=== PATIENT | female | born 1950 | race Caucasian/White ===

== ENCOUNTER 2023-08-02 11:02 | Outpatient (RCR) | payer MEDICARE, OTHER, SELFPAY | END 2023-08-02 23:59 | disposition home or self-care (01) | LOC: RPT 11:02 | PROVIDERS: ATTENDING PHYSICIAN Orthopaedic Surgery Adult Reconstructive Orthopaedic Surgery; FAMILY PHYSICIAN Family Medicine | DX: Z47.1 Aftercare following joint replacement surgery (principal); Z96.652 Presence of left artificial knee joint | CPT/HCPCS: 97010; 97016; 97110 ==

== ENCOUNTER 2023-08-23 10:08 | Outpatient (RCR) | payer MEDICARE, OTHER, SELFPAY | END 2023-08-23 23:59 | disposition home or self-care (01) | LOC: RPT 10:08 | PROVIDERS: ATTENDING PHYSICIAN Orthopaedic Surgery Adult Reconstructive Orthopaedic Surgery; FAMILY PHYSICIAN Family Medicine | DX: Z47.1 Aftercare following joint replacement surgery (principal); Z73.6 Limitation of activities due to disability; R26.2 Difficulty in walking, not elsewhere classified; M62.81 Muscle weakness (generalized); Z96.653 Presence of artificial knee joint, bilateral | CPT/HCPCS: 97016; 97110; 97140; 97530 ==

== ENCOUNTER 2023-10-11 10:13 | Outpatient (RCR) | payer MEDICARE, OTHER, SELFPAY | END 2023-10-11 23:59 | disposition home or self-care (01) | LOC: RPT 10:13 | PROVIDERS: ATTENDING PHYSICIAN Orthopaedic Surgery Adult Reconstructive Orthopaedic Surgery; FAMILY PHYSICIAN Family Medicine | DX: Z47.89 Encounter for other orthopedic aftercare (principal); R26.89 Other abnormalities of gait and mobility; M25.562 Pain in left knee; Z73.6 Limitation of activities due to disability; Z96.652 Presence of left artificial knee joint | CPT/HCPCS: 97010; 97110; 97112; 97116; 97163; 97530 ==

== ENCOUNTER 2023-10-17 13:48 | Outpatient (RCR) | payer MEDICARE, OTHER, SELFPAY | END 2023-10-29 15:23 | disposition home or self-care (01) | LOC: RPT 13:48 | PROVIDERS: ATTENDING PHYSICIAN Orthopaedic Surgery Adult Reconstructive Orthopaedic Surgery; FAMILY PHYSICIAN Family Medicine | DX: Z47.1 Aftercare following joint replacement surgery (principal); R26.89 Other abnormalities of gait and mobility; M25.561 Pain in right knee; Z73.6 Limitation of activities due to disability; Z96.653 Presence of artificial knee joint, bilateral | CPT/HCPCS: 97010; 97110; 97112; 97140; 97530 ==

== ENCOUNTER 2023-10-23 03:06 | Inpatient (IN) | payer MEDICARE, OTHER, SELFPAY ==
[2023-10-22 20:59] VITALS: BMI 47.1
[2023-10-22 21:05] VITALS: BP 131/87
[2023-10-22 21:27] LABS: % Basophils 0.3 % (0-2); % Eosinophils 3.1 % (0-6); % Immature Granulocytes 0.6 % (0-0.5); % Lymphocytes 27.4 % (20.5-51.1); % Monocytes 6.4 % (1.7-9.3); % Neutrophils 62.2 % (42.2-75.2); Absolute Eosinophils 0.3 10^3/uL (0-0.7); Absolute Immature Granulocytes 0.1 10^3/uL (0-0.05); Absolute Lymphocytes 2.4 10^3/uL (1.2-3.4); Absolute Monocytes 0.6 10^3/uL (0.1-0.6); Absolute Neutrophils 5.5 10^3/uL (1.4-6.5); Hematocrit 29.3 % (37.0-47.0); Hemoglobin 9.6 g/dL (12.0-16.0); Mean Corp Hgb Conc. 32.8 g/dL (33.0-37.0); Mean Corpuscular Hgb 23.8 pg (27.0-31.0); Mean Corpuscular Volume 72.7 fL (81.0-99.0); Mean Platelet Volume 9.1 fL (7.4-10.4); Nucleated Red Blood Cells % 0 %; Platelet Count 338 10^3/uL (130-400); Red Blood Cell Count 4.03 10^6/uL (4.20-5.40); Red Cell Dist. Width 17.6 % (11.5-14.5); White Blood Cell Count 8.8 10^3/uL (4.8-10.8)
[2023-10-22 21:47] LABS: Lactic Acid 1.2 mmol/L (0.7-2.0)
[2023-10-22 21:53] LABS: ALT (SGPT) 15 U/L (0-35); AST (SGOT) 25 U/L (14-36); Albumin 3.6 g/dl (3.5-5.0); Alkaline Phosphatase 115 U/L (38-126); Blood Urea Nitrogen 22 mg/dl (7-17); Calcium 8.6 mg/dl (8.4-10.2); Carbon Dioxide 23 mmol/L (22-30); Chloride 104 mmol/L (98-107); Glucose 105 mg/dl (70-99); Potassium 4.7 mmol/L (3.5-5.1); Sodium 133 mmol/L (135-145); Total Bilirubin 0.4 mg/dl (0.2-1.3); Total Protein 7.3 g/dl (6.3-8.2); eGFR > 60.00
[2023-10-23 01:08] VITALS: BP 100/54
--- NOTE | 2023-10-23 01:37 | ED.GENMED ---
History of Present Illness
General
Chief Complaint: Skin Problem
Source: patient
Exam Limitations: none
Time Seen by Provider: 10/23/23 00:49
Travel History
Have you had any contact with someone who has COVID-19?: No
Do you have any symptoms of coronavirus? Fever > 100 degrees, chills, cough, shortness of breath, sore throat, loss of taste or smell, muscle aches, or headache?: No
History of Present Illness
History of Present Illness:
This is a 73 year old female that comes in with c/o redness and swelling of the left lower leg. States that she has had cellulitis of the left leg as she has had two surgeries. States that she went to the [employer] [facility] and she culture the leg and
she was told that she has MRSA. State that she started on Doxycycline but this is not helping. States that her leg is more swollen and increased redness. State that she is also having difficulty walking on the leg. States that on Sunday she had a
fever of 103 with chills. States that she also has a headache with some dizziness. Denies any chest pain, SOB, abd pain, nausea, vomiting, diarrhea, urinary burning.
Past History
Past History
ED Past Medical History: Cancer (breast ca - tx'd with radiation & lumpectomy, disease free since last year, Skin CA), HTN, Psychiatric (Depression), Other (Restless leg syndrome,PNA, Sleep apnea, Anemia, ) and Other (Acute Renal Failure)
ED Past Surgical History: Bowel resection (Gastric bypass), Gynecological (Hysterectomy), Orthopedic (Bilateral carpal tunnel , Left and right knee replacement, Repair fracture Left femur, ) and Other (Gastric bypass, Prolapsed rectum repair, )
Social History
Tobacco: Non-smoker
Alcohol: None
Personal:
Living: with family
Family History
Family History: Negative Diabetes, Hypertension or CAD
Review of Systems
Review of Systems
All Other Systems: ROS reviewed and negative except as documented in HPI and ROS
Constitutional: Reports fever (Last Sunday) and chills
EENT: Reports no symptoms
Respiratory: Reports no symptoms; Denies cough or trouble breathing
Cardiac: Reports no symptoms; Denies chest pain
ABD/GI: Reports no symptoms; Denies abdominal pain, nausea, vomiting or diarrhea
: Reports no symptoms; Denies dysuria, frequency or urgency
Musculoskeletal: Reports edema (Bilateral leg edema)
Skin: Reports other (Increased redness left leg with weeping)
Neurological: Reports dizzy and headache
Psychiatric: Reports no symptoms
Phy Exam
General Physical Exam
General Presentation: no apparent distress
General age: appears stated age
General Skin: warm and dry
General Habitus: elderly
General Mental: alert
General Hydration: appears well hydrated
ENT Exam
ENT Exam: pharynx normal and neck supple
Eye Exam
Eye Exam: EOMI
Cardiovascular Exam
Cardiovascular Exam: regular rate/rhythm and normal peripheral pulses
Pulmonary Exam
Pulmonary Exam: lungs clear, no respiratory distress, no rales, chest non tender, no crackles, no rhonchi, no wheezing and no cough
Gastrointestinal Exam
Gastrointestinal Exam: normal bowel sounds, non tender, soft, no organomegaly, no pulsatile mass, non distended and other (Obese)
Musculoskeletal Exam
Musculoskeletal Exam: edema (Bilateral Lower leg +2pitting edema. )
Skin Exam
Skin Exam: normal color, warm/dry, no petechia and redness (Left lower leg with increased warmth. small open area with oozing. )
Psychiatric Exam
Psychiatric Exam: normal mood/affect
Course
Orders/Labs/Results
Orders:
Orders
10/22/23 21:18
Complete Blood Count/With Diff Urgent
Comprehensive Metabolic Panel Urgent
Lactic Acid Urgent
Blood Culture Urgent
MARLEEN Source: Blood/Venous
Specimen Description:
Date Specimen was Collected: 10/22/23
Time Specimen was Collected: 21:10
Wound Culture [Wound/Abscess/Other Culture] Urgent
MARLEEN Source: Leg
Specimen Description: Left
Date Specimen was Collected: 10/22/23
Time Specimen was Collected: 21:10
10/23/23 01:05
Blood Culture Urgent
MARLEEN Source: Blood/Venous
Specimen Description:
10/23/23 01:17
US Legs, Left [US Periph Venous LOWER Ext LT] Urgent
Comment:
Reason For Exam: Swelling, and redness
10/23/23 01:36
Leg Tibia/Fibula, Left 2 View [CR Leg Tibia/fibula Left 2 Vw] Urgent
Comment:
Reason For Exam: Pain
10/23/23 01:37
Vancomycin 1 Gram/200 ml [Vancocin] 1 gram in 200 ml IV NOW
Abnormal Lab Results
10/22/23
21:18
RBC 4.03 L 10^6/uL
(4.20-5.40)
Hgb 9.6 L g/dL
(12.0-16.0)
Hct 29.3 L %
(37.0-47.0)
MCV 72.7 L fL
(81.0-99.0)
MCH 23.8 L pg
(27.0-31.0)
MCHC 32.8 L g/dL
(33.0-37.0)
RDW 17.6 H %
(11.5-14.5)
Abs Immat Gran (auto) 0.1 H 10^3/uL
(0-0.05)
Immature Gran % 0.6 H %
(0-0.5)
Sodium 133 L mmol/L
(135-145)
BUN 22 H mg/dl
(7-17)
Creatinine 0.5 L mg/dL
(0.6-1.0)
Glucose 105 H mg/dl
(70-99)
10/22/23 21:18
10/22/23 21:18
H/H low. Sodium slighlty low. Dehydration. Glucose nonfasting. Lactic acid normal at 1.2
Vital Signs
Initial and Last Documented VS:
Initial Vital Signs
Temp Pulse Resp BP Pulse Ox
98.0 F 99 18 131/87 98
10/22/23 21:05 10/22/23 21:05 10/22/23 21:05 10/22/23 21:05 10/22/23 21:05
Last Documented Vital Signs
Temp Pulse Resp BP Pulse Ox
98.0 F 96 18 100/54 93
10/23/23 01:33 10/23/23 01:33 10/22/23 21:05 10/23/23 01:08 10/23/23 01:15
MDM/Problems Addressed
Differential Diagnosis Includes:
Cellulitis, DVT,
MDM/Problems Addressed:
This is a 73 year old female that comes in with c/o redness and swelling of the left leg. State that she has had 2 surgeries on the left leg and since that time she has had a cellulitis. States that the [employer] [facility] did a culture as she has some
open weeping wounds. States that this came back as MRSA and that she was place on Doxycycline. States that her leg is more swollen and has increased redness. States that she is having difficulty walking on the leg.
Will get labs, US and X-ray as patient states that she had a fracture before and did not know this until they did an X-ray.
Explained to patient that she will be admitted and started on IV antibiotics. Hospitalist notified.
Chronic conditions affecting care: Other (Left knee replacement. )
Acute Exacerbation and/or Progression of Chronic Illness:
Cellulitis
*Radiology
Radiology exam reviewed: preliminary read by ED provider (Tibia/ Fibula- negative for fractures. ) and other (US left leg- Negative for DVT)
*Pulse Oximetry
Patient hypoxic: no
*EKG
Interpreted by ED Provider?: NA
Rate: EKG- N/A
*[employer] Investigator Interpretation
Rate: Wage [employer] Investigator- N/A
*Critical Care Note
Total Time (30-74mins, 75-104mins- exclusive of procedures): Not Applicable
ED Attending Note
-
Portions of this chart may have been created with voice recognition software.� Occasional wrong word or��sound alike� substitutions may have occurred due to the inherent limitations of voice recognition software.
Discharge Plan
Departure
Prescriptions:
No Action
venlafaxine [Effexor XR] 75 MG capsule,extended release 24hr
1 tab PO DAILY
acetaminophen [Tylenol Arthritis Pain] 650 MG tablet extended release
650 mg PO PRN PRN (Reason: arthritis)
lisinopril 20 mg Tablet
20 mg PO HS
venlafaxine [Effexor XR] 150 mg Capsule,Extended Release 24hr
150 mg PO DAILY
pramipexole [Mirapex] 0.5 mg Tablet
1.5 mg PO TID
gabapentin 300 mg Capsule
300 mg PO HS
Eliquis 2.5 mg Tablet
2.5 mg PO BID
Referrals:
Lopez Carrera MD [Family Provider] -
Interventions
Interventions:
*Risk Screen - Suicide Last Done: 10/22/23 21:05
*General Assessment Last Done: 10/22/23 21:05
[2023-10-23] MEDS: VANCOCIN 200 IV ×3 (02:26→17:20)
--- NOTE | 2023-10-23 03:00 | HPS.HSE ---
Family Physician
-
Family Physician: Lopez Carrera
Chief Complaint
-
LLE pain, swelling, redness
History of Present Illness
Patient is a 73y F with PMH significant for chronic anemia, obesity and now-chronic issues with LLE who presents to ED complaining of LLE pain, swelling, redness and 'oozing'. Patient initially underwent L TKA 05/2023. She had a periprosthetic
fracture identified in August and required revision arthroplasty in 08/2023. Both surgeries were done by Dr. Sahu () at [facility]. In addition, patient underwent melanoma excision from the anterior L calderon about one year ago or so (Dr. Wynn).
Patient states that she has had swelling and intermittent redness in the lower leg since her initial TKA in May.
She had the revision in August s noted; however, she has continued to have swelling, induratio and varying degrees of erythema.
Patient states that these symptoms have been much worse recently with oozing from the lower leg near the ankle and development of 'pustules' at the inferior aspect of the TKA incision scar.
She was seen by her Football Pad Repairer on Sunday of this past week. A culture was done of the discharge.
On Sunday, she developed a fever of 103 degrees at home. She had some mild cough. A COVID test was negative and patient was prescribed Tamiflu for presumptive influenza. She did feel better in terms of cough / fever.
A few days later, she called her PCP regarding the persistent / worsening redness and swelling in the lower leg. She was prescribed an antibiotic - though she cannot recall which one.
Sunday, her Football Pad Repairer called her with results of her culture. This was reportedly positive for MRSA. Abx were changed to doxycycline and patient has now taken 3 total doses of this.
She presented to the ED this evening as she did not feel her symptoms were improving.
She has had no further systemic fevers, chills, N/V/D, etc.
She has noted increased redness to the knee anteriorly and extending into the thigh posteriorly. She has noted new areas of pustules as noted above at the inferior aspect of thhe TKA incision scar.
Medical History
Past Medical History
Past Medical History: Reports Other
Additional Past Medical History:
Breast Cancer s/p Lumpectomy and XRT
Melanoma s/p Excision
Anxiety / Depression
Restless Leg Syndrome
Hypertension
Obesity
Past Surgical History: Reports Other
Additional Past Surgical History:
Left TKA (05/2023)
Revision L TKA (08/2023)
Right TKA
Melanoma Excision
NAN
Justin-en-Y Bypass
Right Lumpectomy
Carpal Tunnel Surgery
Social History
Tobacco: Non-smoker
Alcohol: None
Drug: None
Family History
Family History: Not pertinent
Allergies / Home Medications
Allergies reflects when Allergies were last updated in [employer].
Home Medications with original date entered in [employer]
Allergy/Medication List:
Patient cannot recall specific meds / doses at this time.
If medication reconciliation has not been performed, why?: Medication List N/A (Patient cannot recall specific meds / doses at this time.)
Review of Systems
-
History Source: Patient
A 12 point ROS was completed and negative except as noted: Yes
Constitutional: Denies Fever or Chills
Respiratory: Denies Cough or Trouble Breathing
Cardiac: Denies Chest Pain or Palpitations
Abdomen/GI: Denies Abdominal Pain, Nausea, Vomiting or Diarrhea
: Denies Dysuria or Frequency
Musculoskeletal: Reports Joint Pain and Edema
Skin: Reports Other (Redness / Weeping)
Neurological: Denies Dizzy or Headache
Psych: Reports Depression; Denies Anxiety
Physical Exam
Vital Signs
Vital Signs
Temp Pulse Resp BP Pulse Ox
98.0 F 96 18 100/54 96
10/23/23 01:33 10/23/23 01:33 10/22/23 21:05 10/23/23 01:08 10/23/23 02:45
Physical Exam
General: Other (73y F in no acute distress.)
HEENT: Moist mucous membranes, PERRLA and Other (Thick neck.)
Respiratory: Clear; No Wheezes, Rales or Rhonchi
Cardiac: S1/S2 and Regular Rhythm; No Murmur
GI: Non Tender, Non Distended, Normal Bowel Sounds and Other (Obese)
Musculoskeletal: Other (L lower leg with induration and edema from the foot to the knee anteriorly and into the mid thigh posteriorly. Erythema and increased warmth, General oozing. 2 areas of skin breakdown / pustule formation at inferior aspect
of the TKA scar.)
Neuro: AO x 3
Laboratory Results
-
10/22/23 21:18
10/22/23 21:18
Laboratory Results
Lactic Acid 1.2 mmol/L (0.7-2.0) 10/22/23 21:18
Total Bilirubin 0.4 mg/dl (0.2-1.3) 10/22/23 21:18
AST 25 U/L (14-36) 10/22/23 21:18
ALT 15 U/L (0-35) 10/22/23 21:18
Alkaline Phosphatase 115 U/L (38-126) 10/22/23 21:18
Impression/Plan
-
A/P: Patient is a 73y F with PMH significant for obesity, HTN and L knee TKA and revision who presents to ED complaining of L lower leg redness, swelling and oozing despite outpatient abx regimen.
LLE Cellulitis
- Admit for further evaluation and treatment.
- There is a degree of chronic edema / venous insufficiency / etc underlying this.
- More acute erythema, warmth and worsening of symptoms.
- Recent OP culture reportedly positive for MRSA (confirm with Dr. Wynn's office in the AM).
- Repeat cultures obtained in the ED.
- IV Vancomycin for now.
- ID evaluation for additional recommendations
- Concern for possible TKA involvement given proximal extension and new pustules at inferior aspect of incision scar.
- Check CT for further evaluation.
- May require IR / aspiration to rule out joint involvement.
- May require Ortho involvement / transfer back to Dr. Sahu at [facility].
Benign Hypertension
- Stable. Continue lisinopril - confirm med / dose in the AM.
Peripheral Neuropathy
- Stable. Continue gabapentin - confirm med / dose in the AM.
Chronic Anemia
- Unclear etiology - seems likely related to prior gastric bypass.
- Check iron studies.
- Follow H&H for any changes.
- Patient denies any gross / evident blood loss.
Depression
- Stable. Continue venlafaxine - verify dose / med in the AM.
Obesity due to excess calories
- Affects all aspects of care, including LE edema and joint pain.
- Encourage healthy diet and increased activity with goal of weight loss.
DVT Prophylaxis: Foot Pumps for now.
Code Status: Full
[2023-10-23 03:06] VITALS: BMI 47.1
[2023-10-23 04:10] VITALS: BP 121/65
[2023-10-23 06:14] LABS: Hematocrit 27.8 % (37.0-47.0); Hemoglobin 9.1 g/dL (12.0-16.0); Mean Corp Hgb Conc. 32.7 g/dL (33.0-37.0); Mean Corpuscular Hgb 24.1 pg (27.0-31.0); Mean Corpuscular Volume 73.5 fL (81.0-99.0); Mean Platelet Volume 8.7 fL (7.4-10.4); Platelet Count 336 10^3/uL (130-400); Red Blood Cell Count 3.78 10^6/uL (4.20-5.40); Red Cell Dist. Width 17.6 % (11.5-14.5); White Blood Cell Count 8.4 10^3/uL (4.8-10.8)
[2023-10-23 06:34] LABS: Blood Urea Nitrogen 20 mg/dl (7-17); Calcium 8.6 mg/dl (8.4-10.2); Carbon Dioxide 24 mmol/L (22-30); Chloride 104 mmol/L (98-107); Estimated Creatinine Clearance 85 ml/min; Glucose 102 mg/dl (70-99); Potassium 4.6 mmol/L (3.5-5.1); Sodium 136 mmol/L (135-145); eGFR > 60.00
[2023-10-23 06:35] LABS: Creatine Phosphokinase 47 U/L (30-135); Iron 40 ug/dl (37-170)
[2023-10-23 06:46] LABS: Percent Saturation 14 % (20-50); Total Iron Binding Capacity 273 ug/dl (265-497)
--- NOTE | 2023-10-23 09:48 | PHA.VAN.IN ---
Assessment
- Assessment
Renal Function: Appears similar to baseline
AUC Dosing Plan
- Dosing Variables
Dosing Weight (kg): 102
Dosing CrCl (ml/min): 85
Vd coefficient (L/kg): 0.5
- Empiric Dosing
Initial / Loading Dose: 1000mg - 10/22 02:26
Maintenance Regimen: Vanc 1000mg Q12H - give dose now then at 1800 in lieu of load
Estimated AUC (mcg*h/mL): 543
Estimated Peak (mcg*h/mL): 33.1
Estimated Trough (mcg/ml): 14.5
Estimated Half Life (H): 9.2
- Monitoring
No levels ordered at this time: consider levels in next few days
Pharmacokinetics Vancomycin I
- -
Patient Age: 73
Patient Sex: Female
Vancomycin Day #: 1
Indication: Skin And Soft Tissue
Requesting Provider: Dr. Narvaez
Pertinent Antimicrobial Allergies:
cephalosporins - unknown
penicillins - trouble breathing
sulfonamide antibiotics - rash
Height / Weight:
Height 4 ft 10 in
Actual Weight 102.1 kg
Pertinent Past Medical History: BMI ~47
- Vital Signs / Lab Results
Temp Pulse Resp BP Pulse Ox
98.3 F 97 18 121/65 95
10/23/23 07:36 10/23/23 07:36 10/23/23 07:36 10/23/23 04:10 10/23/23 07:36
Lab Results - Hematology
10/22/23 10/23/23
21:18 06:04
WBC 8.8 8.4
Lab Results - Chemistry
10/22/23 10/23/23
21:18 06:04
BUN 22 H 20 H
Creatinine 0.5 L 0.4 L
Estimated Creat Clear 85
Albumin 3.6
10/22/23
21:18
Lactic Acid 1.2
[2023-10-23] MEDS: EFFEXOR XR 150 MG PO (10:22)
--- NOTE | 2023-10-23 10:25 | CON.ID ---
Consultation
-
Date/Time Consultation Requested: 10/23/2023, 0406
Date/Time Consultation Performed: 10/23/2023, 1030
Requesting Provider: Dr. Francisco Javier Narvaez
Performing Provider: Dr. Sindhu Sandoval
Reason for Consultation: Cellulitis failed oupt abx
Chief Complaint / Past History
Chief Complaint
Draining wounds on LLE
History of Present Illness
73 year old female with OA s/p L TKA at [facility] 05/[address] Sahu. Since then had persistent LLE edema/erythema despite several courses of antibiotics. August 2023, PCP ordered CT LLE which showed periprosthetic fracture, large
suprapatellar joint effusion. Pt denies hx falls/trauma to knee. On 09/03/23, she underwent Left TKA partial revision. Post-op LLE continued with edema despite PT. LLE also with worsening erythema. Approximately 2 weeks ago, she developed
drainage from left leg distal wound. She saw her textile pin worker on 10/15/23 who cultured the wound. On 10/16 she had fever up to 105. COVID neg. PCP treated her empirically with Tamiflu. On Sunday, 10/19 she noted wounds over distal knee incision with
drainage. His PCP prescribed Levofloxacin. On Friday 10/20, she received a call from her Compound Filler regarding wound cx +MRSA, Levofloxacin replaced with doxycycline. Her left continued to have worsening erythema, edema, and drainage. She came to
ED last night. Currently she is on IV Vancomycin.
Past History
Additional Past Medical History:
HTN
Restless leg syndrome
hx breast CA s/p lumpectomy and XRT
Anxiety/depression
L TKR at [facility] (05/2023) with periprosthetic fracture s/p revision 08/2023
R TKR (2012)
Gastric bypass
Melanoma excision left calderon
NAN
Allergy History:
adhesive tape [Adhesive Tape] Allergy (Verified 10/22/23 21:05)
Rash
Cephalosporins Allergy (Verified 10/22/23 21:05)
Unknown
latex [Latex] Allergy (Verified 10/22/23 21:05)
Unknown
Penicillins Allergy (Verified 10/22/23 21:05)
trouble breathing
Sulfa (Sulfonamide Antibiotics) Allergy (Verified 10/22/23 21:05)
Rash
sulfamethoxazole Allergy (Verified 10/22/23 21:05)
Rash
trimethoprim Allergy (Verified 10/22/23 21:05)
Rash
Medications Reviewed: Yes
Current Antibiotics:
Vancomycin
Social History
Tobacco: Non-Smoker
Alcohol: None
Drug: None
Personal: Single
Living: With Family
Family History
Family History: Not Pertinent
Review of Systems
Review of Systems
General: Fever and Chills
HEENT: Negative Sinus Problems or Headache
Respiratory: Negative Dyspnea or Cough
Gasteroenterology: Other (no diarrhea); Negative Nausea or Vomiting
Genital / Urological: Negative Dysuria
Musculoskeletal: Joint Swelling and Arthralgias
Neurological: Negative Headache or Dizziness
All systems: All other systems were reviewed and were negative
Vital Signs
Temp Pulse Resp BP Pulse Ox
98.3 F 97 18 121/65 95
10/23/23 07:36 10/23/23 07:36 10/23/23 07:36 10/23/23 04:10 10/23/23 07:36
Physical Exam
Physical Exam
Constitutional: No Acute Distress and Obese
Eyes: Sclera Anicteric
Cardiovascular: Regular Rate and S1/S2
Pulmonary: Clear
Gastrointestinal: Soft, Non Tender, Non Distended and Normal Bowel Sounds
Genito-Urinary: CVA Tenderness
Extremities: Edema (LLE: 2-3+ edema) and Erythema (LLE bright erythema from ankle to below knee to calf, back of thigh, + warmth. )
Musculoskeletal: Other (Left knee ROM limited)
Wound: Other (Left knee distal 1/3 of incision with 2 areas of dehiscence, wound, + significant induration over distal incision)
Lab / Diagnostic Study Results
10/23/23 06:04
10/23/23 06:04
Abs Immat Gran (auto) 0.1 10^3/uL (0-0.05) H 10/22/23 21:18
Absolute Neuts (auto) 5.5 10^3/uL (1.4-6.5) 10/22/23 21:18
Absolute Lymphs (auto) 2.4 10^3/uL (1.2-3.4) 10/22/23 21:18
Absolute Monos (auto) 0.6 10^3/uL (0.1-0.6) 10/22/23 21:18
Absolute Basos (auto) 0.0 10^3/uL (0-0.2) 10/22/23 21:18
Immature Gran % 0.6 % (0-0.5) H 10/22/23 21:18
Neutrophils % 62.2 % (42.2-75.2) 10/22/23 21:18
Lymphocytes % 27.4 % (20.5-51.1) 10/22/23 21:18
Monocytes % 6.4 % (1.7-9.3) 10/22/23 21:18
Eosinophils % 3.1 % (0-6) 10/22/23 21:18
Basophils % 0.3 % (0-2) 10/22/23 21:18
Lactic Acid 1.2 mmol/L (0.7-2.0) 10/22/23 21:18
Microbiology Results
Micro:
10/22/23 21:18 Blood Culture - Pending
Blood/Venous
10/23/23 01:05 Blood Culture - Pending
Blood/Venous
10/22/23 21:18 Wound Culture - Pending
Leg - Left Gram Stain - Pending
10/23/23 CT LLE with IV contrast: Partially visualized periprosthetic fracture of the distal femur, better evaluated on recent prior dedicated CT knee exam. Small to moderate suprapatellar joint effusion.
There is moderate diffuse subcutaneous edema and skin thickening throughout the visualized left lower extremity in keeping with cellulitis. There is a partially loculated fluid collection along the anterior margin of the proximal tibia within the
deep soft tissues measuring up to 4.7 x 1.3 x 10.5 cm, new from prior and likely representing a developing abscess. The underlying bone appears grossly intact. No overt CT evidence for osteomyelitis.
10/23/23 Peripheral Vascular US: no DVT
08/29/23 CT LLE wo IV contrast: Total left knee prosthesis hardware noted in place. There is a subacute slightly comminuted periprosthetic fracture along the medial femoral condyle extending from the prosthesis to the medial metadiaphyseal cortex
anteriorly and posteriorly. No evidence for periprosthetic loosening or component migration. Moderate to large suprapatellar joint effusion with hemarthrosis. Moderate diffuse subcutaneous edema about the knee.
Assessment / Plan
# LLE large abscess, presumed PJI left knee
# Outpatient cx MRSA
# hx L TKA (05/2023) followed by partial revision for periprosthetic fracture 09/03/23 at [facility]
- Needs I+D of large abscess.
- Need to explore/ evaluate for left knee prosthetic infection.
- Continue IV Vancomycin for now.
Care Review
Plan reviewed with: Physician (Dr. Blank Harris)
[2023-10-23 10:30] VITALS: BMI 39.2
--- NOTE | 2023-10-23 12:20 | W.PN.UPDATE ---
Update Note
Progress Note Update
Discussed with ID, who recommends transfer to [facility] for drainage of her left leg abscess, and to evaluate if it is involving her left periprosthetic knee revision.
Patient has been accepted for transfer to [facility], accepting physician is Dr. Wilner Sahu.
Transfer to [facility] when bed available. Paperwork completed.
[2023-10-23 12:57] VITALS: BP 128/72; BMI 40.7
--- NOTE | 2023-10-23 13:45 | PTCARENOTE ---
pt admitted from the ED to into 2135 with this nurse at the bedside. pt is aaox3, daily wt with the standing scale and uses a walker for ambulation. pt is cont. of b&b and has unilateral swelling and local erythema to the LLE. this nurse wrapped
the leg with kerlix and dressed the open draining areas with 2 abd pads at this time. wound care is consulted as well as infectious disease. pt takes pills whole with water and is on a regular diet. VSS and pt is a medsu pt at this time on Room
air. pt oriented to the room, call light and telephone. pt and friend are at the bedside at this time.
--- NOTE | 2023-10-23 13:53 | PTCARENOTE ---
this nurse spoke to Shankar Burton and plan is for her to be transferred once there is bed availability. pt is seen by orthopedic surgeon through that location so request was put in for the transfer.
--- NOTE | 2023-10-23 14:16 | W.DCSUMMARY ---
Discharge Summary
Discharge Data
Date of Admission: 10/23/23
Date of Discharge: 10/23/23
-
Pending Results: No
Hospital Course
Discharge diagnosis:
Left lower extremity cellulitis with abscess
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
Chronic anemia
Benign essential hypertension
Peripheral neuropathy
Depression
Obesity due to excess calories
LLE CT:
Partially visualized periprosthetic fracture of the distal femur, better evaluated on recent prior dedicated CT knee exam. Small to moderate suprapatellar joint effusion.
There is moderate diffuse subcutaneous edema and skin thickening throughout the visualized left lower extremity in keeping with cellulitis. There is a partially loculated fluid collection along the anterior margin of the proximal tibia within the
deep soft tissues measuring up to 4.7 x 1.3 x 10.5 cm, new from prior and likely representing a developing abscess. The underlying bone appears grossly intact. No overt CT evidence for osteomyelitis.
Mild degenerative changes of the left ankle and partially visualized joints of the foot.
Hospital course:
73-year-old female with a past medical history of obesity, breast cancer status postlumpectomy and radiation, melanoma status post incision, previous left knee arthroplasty on 05/2023 followed by revision on 08/2023, was admitted with left lower
extremity pain, redness, oozing. She was found to have a large abscess at the anterior margin of the proximal tibia. Previous cultures obtained by her outpatient property maintenance supervisor grew out MRSA. She was treated with IV vancomycin. She was seen by
ID, who recommended incision and drainage, and evaluation of the wound to see if it tracks to the periprostatic knee revision. ID recommends transfer to her original surgeon at [facility]. Patient has been accepted by her original orthopedic
surgeon Dr. Wilner Sahu, and is transferred there in stable condition.
Disposition: Transfer to [facility] in [facility]
Discharge planning: Required 65 minutes
Discharge Plan
-
Patient Disposition: Acute Care Hospital
Discharge Orders:
Discharge Patient (As Directed); Ordered 10/23/23
Ordered By: Bradly Harris
Discharge Date and Time
Discharge Date/Time: 10/23/23 22:00
[2023-10-23 15:55] VITALS: BP 133/70; PULSE 106; O2SAT 96
--- NOTE | 2023-10-23 19:16 | PTCARENOTE ---
Addendum entered by Judith Bills RN 10/23/23 19:18:
this nurse gave report to [facility] this afternoon but due to no call back number no updated report was given
Original Note:
pt to be transferred to [place] this evening via ambulance. pt is aaox3 and received Iv vanco for MRSA in LLE wound at 1800 for this nurse through her R wrist IV site. pt LLe has two open areas with purulent drainage. LLE is red and warm to touch
and has +2 edema.
[2023-10-23] MEDS: NEURONTIN 300 MG PO (20:28)
[2023-10-23] MEDS: ZESTRIL 20 MG PO (20:28)
[2023-10-23 21:58] VITALS: BP 139/79
--- NOTE | 2023-10-23 21:59 | PTCARENOTE ---
Pt picked up by [facility] ambulance transport. Report given by previous shift. Pt AAOx3 and in no distress. Pt ambulated to the stretcher w/ RW. Belongings sent with patient.
== END 2023-10-23 22:00 | disposition short-term general hospital (02) | DRG 560 ==
LOC: 2 NORTH 03:06
PROVIDERS: Emergency Medicine; ADMITTING PHYSICIAN Hospitalist; ATTENDING PHYSICIAN Family Medicine; CONSULT PHYSICIAN Internal Medicine Infectious Disease; EMERGENCY PHYSICIAN Emergency Medicine; FAMILY PHYSICIAN Family Medicine
DX: T84.54XA Infection and inflammatory reaction due to internal left knee prosthesis, initial encounter (principal); L03.116 Cellulitis of left lower limb; Z68.41 Body mass index [BMI] 40.0-44.9, adult; I10 Essential (primary) hypertension; G62.9 Polyneuropathy, unspecified; D64.9 Anemia, unspecified; Z98.84 Bariatric surgery status; F32.A Depression, unspecified; E66.09 Other obesity due to excess calories; Y83.1 Surgical operation with implant of artificial internal device as the cause of abnormal reaction of the patient, or of later complication, without mention of misadventure at the time of the procedure
CPT/HCPCS: 73590; 73701; 80048; 80053; 82550; 83540; 83550; 83605; 85025; 85027; 87040; 87070; 87147; 87186; 87205; 93971; 96365; 96375; 97162; 97166; 99285; Q9967

== ENCOUNTER → 2023-11-26 10:33 | Outpatient (REF) | payer MEDICARE, OTHER, SELFPAY | LOC: WDC 10:33 | PROVIDERS: ATTENDING PHYSICIAN Obstetrics & Gynecology Gynecology; FAMILY PHYSICIAN Family Medicine | DX: N63.10 Unspecified lump in the right breast, unspecified quadrant (principal) | CPT/HCPCS: 76642; 77062; 77066 ==

== ENCOUNTER → 2023-12-26 10:13 | Outpatient (REF) | payer MEDICARE, OTHER, SELFPAY ==
[2023-12-26 11:29] LABS: % Basophils 0.6 % (0-2); % Eosinophils 2.5 % (0-6); % Immature Granulocytes 0.6 % (0-0.5); % Lymphocytes 23.3 % (20.5-51.1); % Monocytes 8.4 % (1.7-9.3); % Neutrophils 64.6 % (42.2-75.2); Absolute Eosinophils 0.2 10^3/uL (0-0.7); Absolute Lymphocytes 1.5 10^3/uL (1.2-3.4); Absolute Monocytes 0.5 10^3/uL (0.1-0.6); Absolute Neutrophils 4.1 10^3/uL (1.4-6.5); Hematocrit 31.4 % (37.0-47.0); Hemoglobin 9.8 g/dL (12.0-16.0); Mean Corp Hgb Conc. 31.2 g/dL (33.0-37.0); Mean Corpuscular Hgb 22.8 pg (27.0-31.0); Nucleated Red Blood Cells % 0 %; Platelet Count 311 10^3/uL (130-400); Red Cell Dist. Width 17.6 % (11.5-14.5); White Blood Cell Count 6.3 10^3/uL (4.8-10.8)
[2023-12-26 11:34] LABS: Erythrocyte Sed Rate 42 mm/hour (0-20)
[2023-12-26 11:47] LABS: ALT (SGPT) 17 U/L (0-35); AST (SGOT) 28 U/L (14-36); Albumin 3.6 g/dl (3.5-5.0); Alkaline Phosphatase 106 U/L (38-126); Blood Urea Nitrogen 22 mg/dl (7-17); Calcium 8.9 mg/dl (8.4-10.2); Carbon Dioxide 27 mmol/L (22-30); Chloride 104 mmol/L (98-107); Glucose 85 mg/dl (70-99); Potassium 4.7 mmol/L (3.5-5.1); Sodium 138 mmol/L (135-145); Total Bilirubin 0.3 mg/dl (0.2-1.3); Total Protein 7.2 g/dl (6.3-8.2); eGFR > 60.00
== END ==
LOC: REG 10:13
PROVIDERS: ATTENDING PHYSICIAN Internal Medicine Infectious Disease; FAMILY PHYSICIAN Family Medicine
DX: S81.002A Unspecified open wound, left knee, initial encounter (principal)
CPT/HCPCS: 36415; 80053; 85025; 85652; 86140

== ENCOUNTER → 2023-12-27 11:39 | Outpatient (REF) | payer MEDICARE, OTHER, SELFPAY | LOC: HWRAD 11:39 | PROVIDERS: ATTENDING PHYSICIAN Internal Medicine Infectious Disease; FAMILY PHYSICIAN Family Medicine | DX: L03.116 Cellulitis of left lower limb (principal) | CPT/HCPCS: 73701; Q9967 ==

== ENCOUNTER 2024-05-17 16:31 | Inpatient (IN) | payer MEDICARE, OTHER, SELFPAY ==
[2024-05-17] VITALS (64 sets, daily range): BP systolic 79–145; BP diastolic 17–82; BMI 41.8
[2024-05-17] MEDS: TYLENOL/FEVERALL 650 MG RECTAL (14:03)
[2024-05-17] MEDS: NSS 1000 IV ×3 (14:04→17:47)
[2024-05-17 14:27] LABS: Urine Albumin Trace (Neg - Trace); Urine Bilirubin Negative (Negative); Urine Character Clear (Clear); Urine Color Yellow; Urine Glucose Negative (Negative); Urine Ketone Negative (Negative); Urine Leukocyte Trace (Negative); Urine Nitrite Negative (Negative); Urine Occult Blood Negative (Negative); Urine Specific Gravity 1.015 (<1.030); Urine Urobilinogen Negative (Neg - 1+)
[2024-05-17 14:34] LABS: COVID-19 Antigen Negative (Negative)
[2024-05-17 14:35] LABS: Urine Bacteria Few (Negative); Urine Hyaline Cast 0-2 /LPF (0-2); Urine Mucus Moderate; Urine Red Blood Cell 0-2 /HPF (0-2); Urine White Cell 0-2 /HPF (0-5)
--- NOTE | 2024-05-17 14:36 | ED.GENMED ---
History of Present Illness
General
Chief Complaint: Change in Mental Status
Source: patient and family
Exam Limitations: clinical condition
Time Seen by Provider: 05/17/24 13:51
History of Present Illness
History of Present Illness:
73-year-old female who presents after sister came to check on her she was semiresponsive. Patient reportedly texted her last night. Febrile on arrival. Patient states she otherwise feels okay. However it is noted that she is somewhat somnolent.
Past History
Past History
ED Past Medical History: Cancer (breast ca - tx'd with radiation & lumpectomy, disease free since last year, Skin CA), HTN, Psychiatric (Depression), Other (Restless leg syndrome,PNA, Sleep apnea, Anemia, ) and Other (Acute Renal Failure)
ED Past Surgical History: Bowel resection (Gastric bypass), Gynecological (Hysterectomy), Orthopedic (Bilateral carpal tunnel , Left and right knee replacement, Repair fracture Left femur, ) and Other (Gastric bypass, Prolapsed rectum repair, )
Social History
Tobacco: Non-smoker
Alcohol: None
Personal:
Living: with family
Family History
Family History: Negative Diabetes, Hypertension or CAD
Phy Exam
Physical Exam
Physical Exam:
CONSTITUTIONAL Patient somnolent. Does arouse to voice
HEAD atraumatic, normocephalic.
EYES eyelids normal to inspection,Extraocular muscles intact, Conjunctiva normal, Sclera normal.
NECK normal range of motion, Trachea midline, no jugular venous distention.
RESPIRATORY CHEST tachypneic, breath sounds clear
CARDIOVASCULAR regular rate and rhythm, Heart sounds normal.
ABDOMEN abdomen nontender, Bowel sounds normal. No distention.
UPPER EXTREMITY no cyanosis, no edema.
LOWER EXTREMITY redness to bilateral lower extremities, chronic skin changes noted to the left lower extremity. They are warm to touch at his distal lower extremities
NEURO Cranial Nerves intact to screening exam. No focal apparent deficits
SKIN skin warm, dry, and normal in color.
Sepsis
Sepsis Screening
Sepsis Assessment: Septic Shock
Sepsis Screening: Hypotension
Sepsis Screen
Sepsis Screen: Septic Shock
Date: 05/17/24
Time: 15:05
Course
Orders/Labs/Results
Orders:
Orders
05/17/24 13:51
0.9% Sodium Chloride 1000 ml [Nss] 1,000 ml IV BOLUS
Acetaminophen [Tylenol/Feverall] 650 mg RECTAL NOW STA
CR Chest Portable - 1 View Urgent
Comment:
Reason For Exam: sepsis
Reason Study Needs to be Portable: Patient Unstable
05/17/24 13:55
EKG [Electrocardiogram (*1)] Urgent
Reason for Study: Fatigue / Weakness
EKG- Treatment ONCE
05/17/24 14:10
Complete Blood Count/With Diff Urgent
Comprehensive Metabolic Panel Urgent
Lactic Acid Q4H
Comment: CANCEL 2nd LACTIC ACID IF 1st LACTIC ACID IS LESS THAN 2
Troponin I Urgent
Urinalysis Reflex To Culture Urgent
Date Specimen was Collected: 05/17/24
Time Specimen was Collected: 14:07
Urine Microscopic Reflex Cult Urgent
Blood Culture Routine
MARLEEN Source: Blood/Venous
Specimen Description:
Blood Culture Urgent
MARLEEN Source: Blood/Venous
Specimen Description:
05/17/24 14:13
COVID-19 Antigen Urgent
Source: Nasal Swab
Influenza A+B Rapid Molecular Urgent
MARLEEN Source: Nasal Swab
Specimen Description:
05/17/24 14:35
0.9% Sodium Chloride 1000 ml [Nss] 1,000 ml IV BOLUS
Aztreonam [Azactam] 2,000 mg IV NOW STA
05/17/24 14:37
0.9% Sodium Chloride 500 ml [Nss] 1,000 ml IV BOLUS
05/17/24 14:41
Sterile Water [Sterile Water For Injection] 10 ml .ROUTE .[facility]
05/17/24 14:53
Vancomycin [Vancocin] 2,000 mg 0.9% Sodium Chloride 500 ml [Nss] 500 ml IV NOW
05/17/24 14:58
NORepinephrine 4 MG/250 ML [Levophed] 4 mg in 250 ml IV NOW
Initial dose in mcg/min, then titrate:: 2
Titrate to keep:: MAP > 65 mmHg
Titrate by mcg/min:: 1-2 mcg/min
Frequency of titrations (minutes):: 5
Maximum dose in ICU in mcg/min:: 30
Maximum dose in IMU in mcg/min:: 8
Maximum dose in IVU in mcg/min:: 4
Begin to taper infusion when:: Remained at goal for 4hrs
Taper by mcg/min:: 1-2 mcg/min
Frequency of taper (minutes) if patient maintains goal:: 30
Taper to off?: Yes
If infusion off & no longer maintaining goal:: Contact Provider
05/17/24 14:59
Calcium Gluconate 1,000 mg IV NOW STA
Sodium Bicarbonate 50 meq IV NOW STA
05/17/24 18:00
Lactate Level [Lactic Acid] Urgent
Abnormal Lab Results
05/17/24
14:10
WBC 34.8 H 10^3/uL
(4.8-10.8)
Hgb 8.8 L g/dL
(12.0-16.0)
Hct 28.7 L %
(37.0-47.0)
MCV 67.5 L fL
(81.0-99.0)
MCH 20.7 L pg
(27.0-31.0)
MCHC 30.7 L g/dL
(33.0-37.0)
RDW 21.1 H %
(11.5-14.5)
Plt Count 433 H 10^3/uL
(130-400)
Abs Immat Gran (auto) 1.8 H 10^3/uL
(0-0.05)
Absolute Neuts (auto) 29.7 H 10^3/uL
(1.4-6.5)
Absolute Monos (auto) 1.8 H 10^3/uL
(0.1-0.6)
Immature Gran % 5.1 H %
(0-0.5)
Neutrophils % 85.3 H %
(42.2-75.2)
Lymphocytes % 4.2 L %
(20.5-51.1)
Potassium 6.0 H mmol/L
(3.5-5.1)
Carbon Dioxide 19 L mmol/L
(22-30)
BUN 42 H mg/dl
(7-17)
Creatinine 2.1 H mg/dL
(0.6-1.0)
Glucose 105 H mg/dl
(70-99)
Lactic Acid 3.4 H mmol/L
(0.7-2.0)
AST 55 H U/L
(14-36)
Troponin I 0.420 H* ng/ml
Leukocyte Esterase Rfl Trace A
(Negative)
Urine Bacteria (Reflex) Few A
(Negative)
05/17/24 14:10
05/17/24 14:10
Vital Signs
Initial and Last Documented VS:
Initial Vital Signs
Temp Pulse Resp BP Pulse Ox
102.4 F H 97 32 84/47 97
05/17/24 13:47 05/17/24 13:47 05/17/24 13:47 05/17/24 13:47 05/17/24 13:47
Last Documented Vital Signs
Temp Pulse Resp BP Pulse Ox
102.4 F H 94 32 93/38 93
05/17/24 13:47 05/17/24 14:45 05/17/24 14:45 05/17/24 14:45 05/17/24 14:45
MDM/Problems Addressed
MDM/Problems Addressed:
Septic shock, acute renal failure, change in mental status, hyperkalemia, lactic acidosis, abnormal EKG, secondary myocardial injury
*Radiology
Radiology exam reviewed: all reviewed NAD by ED Provider
*Pulse Oximetry
Patient hypoxic: no
*EKG
Interpreted by ED Provider?: Yes
Interpretation: abnormal
Rate: normal
Rhythm: sinus
Ischemia: other (Peak T waves,)
*Air Intelligence Officer Interpretation
Rate: normal
Interpretation: normal
Rhythm: sinus
*Critical Care Note
Total Time (30-74mins, 75-104mins- exclusive of procedures): 60 minutes
Data Reviewed
Review of Other/Old Records Reveals: Labs (Previous skin culture revealed MRSA)
Source: patient and family
Prescriptions/Medications Considered But Not Given:
Considered Zosyn the patient allergic to penicillin
Patient Management
Discussion with other providers: Hospitalist
Escalation/DeEscalation of care consider admission/obs:
73-year-old female in septic shock. Blood pressure better on second liter of IV fluids but will initiate Levophed. Broad-spectrum biotics ordered. Admit to ICU
ED Attending Note
-
Portions of this chart may have been created with voice recognition software.� Occasional wrong word or��sound alike� substitutions may have occurred due to the inherent limitations of voice recognition software.
Discharge Plan
Departure
Patient Disposition: Admit
Date of Disposition: 05/17/24
Time of Disposition: 15:00
Admit to: ICU
Presentation/result/management discussed w/ accepting MD/DO: Hospitalist
Discharge Problem:
Septic shock
Prescriptions:
No Action
venlafaxine [Effexor XR] 75 MG capsule,extended release 24hr
75 mg PO DAILY
Rx Instructions:
10/23/2023, take with 150 mg for a total of 225 mg.
acetaminophen [Tylenol Arthritis Pain] 650 MG tablet extended release
1,300 mg PO DAILYPRN PRN (Reason: arthritis)
lisinopril 20 mg Tablet
20 mg PO HS
venlafaxine [Effexor XR] 150 mg Capsule,Extended Release 24hr
150 mg PO DAILY
Rx Instructions:
10/23/2023, take with 75 mg for a total of 225 mg.
gabapentin 300 mg Capsule
900 mg PO HS
pramipexole 0.5 mg Tablet
1.5 mg PO BID
Patient Comments:
10/23/2023, last filled on 01/02/2023 for 90-day supply.
pramipexole 0.5 mg Tablet
1.5 mg PO DAILY PRN (Reason: restless leg)
Patient Comments:
10/23/2023, last filled on 01/02/2023 for 90-day supply.
cyanocobalamin (vitamin B-12) 500 mcg Tablet
500 mcg PO DAILY
doxycycline monohydrate 100 mg Capsule
100 mg PO BID
Patient Comments:
10/23/2023, pt. filled this med. on 10/21/2023 and is instructed to take one capsule BID for 10 days. Per pt., she took 3 capsules so far.
oseltamivir 75 mg Capsule
75 mg PO BID
Patient Comments:
10/23/2023, pt. filled this med. on 10/18/2023 and is instructed to take one capsule BID for 5 days. Per pt., she stopped taking this med. yesterday (10/22/2023).
Referrals:
Lopez Carrera MD [Family Provider] -
Interventions
Interventions:
*Risk Screen - Suicide Last Done: 05/17/24 13:47
*General Assessment Last Done: 05/17/24 13:47
*Neglect/Abuse Screening Last Done: 05/17/24 13:47
*ED COVID-19 Vaccine History Last Done: 05/17/24 13:47
Discharge Date and Time
Print Language: INDONESIAN
[2024-05-17 14:37] LABS: ALT (SGPT) 20 U/L (0-35); AST (SGOT) 55 U/L (14-36); Albumin 3.9 g/dl (3.5-5.0); Alkaline Phosphatase 109 U/L (38-126); Blood Urea Nitrogen 42 mg/dl (7-17); Calcium 8.7 mg/dl (8.4-10.2); Carbon Dioxide 19 mmol/L (22-30); Chloride 99 mmol/L (98-107); Glucose 105 mg/dl (70-99); Hematocrit 28.7 % (37.0-47.0); Hemoglobin 8.8 g/dL (12.0-16.0); Mean Corp Hgb Conc. 30.7 g/dL (33.0-37.0); Mean Corpuscular Hgb 20.7 pg (27.0-31.0); Mean Corpuscular Volume 67.5 fL (81.0-99.0); Mean Platelet Volume 9.1 fL (7.4-10.4); Platelet Count 433 10^3/uL (130-400); Red Blood Cell Count 4.25 10^6/uL (4.20-5.40); Red Cell Dist. Width 21.1 % (11.5-14.5); Sodium 135 mmol/L (135-145); Total Bilirubin 1.3 mg/dl (0.2-1.3); Total Protein 7.1 g/dl (6.3-8.2); White Blood Cell Count 34.8 10^3/uL (4.8-10.8); eGFR 24.27
[2024-05-17] MEDS: AZACTAM 2000 MG IV (14:42)
[2024-05-17 14:45] LABS: Lactic Acid 3.4 mmol/L (0.7-2.0)
[2024-05-17 15:00] LABS: % Basophils 0.3 % (0-2); % Immature Granulocytes 5.1 % (0-0.5); % Lymphocytes 4.2 % (20.5-51.1); % Monocytes 5.1 % (1.7-9.3); % Neutrophils 85.3 % (42.2-75.2); Absolute Basophils 0.1 10^3/uL (0-0.2); Absolute Immature Granulocytes 1.8 10^3/uL (0-0.05); Absolute Lymphocytes 1.5 10^3/uL (1.2-3.4); Absolute Monocytes 1.8 10^3/uL (0.1-0.6); Absolute Neutrophils 29.7 10^3/uL (1.4-6.5); Nucleated Red Blood Cells % 0.1 %
[2024-05-17] MEDS: SODIUM BICARBONATE 50 MEQ IV (15:12)
[2024-05-17] MEDS: VANCOCIN 540 MG IV (15:14)
[2024-05-17] MEDS: LEVOPHED 250 IV (15:20)
[2024-05-17] MEDS: CALCIUM GLUCONATE 10% 10 ML 4.65 MEQ IV (15:27)
--- NOTE | 2024-05-17 15:56 | HPS.HSE ---
Family Physician
-
Family Physician: Lopez Carrera
Chief Complaint
-
somonolence
History of Present Illness
73-year-old female past medical history of obesity, breast cancer status postlumpectomy/radiation, melanoma status post incision, history of left TKR presumed prostatic joint infection of left knee, right TKR, chronic anemia, essential hypertension,
peripheral neuropathy, depression, obesity, restless leg syndrome, obstructive sleep apnea, presenting for somnolence and being less responsive. Sister came to check on her and found her in this condition. Patient reportedly texted her last night.
Patient was recently mated in October of this year for left lower extremity pain, redness and oozing. She was found to have a large abscess at the anterior margin of the proximal tibia. Previous cultures grew MRSA. She will treat with IV
vancomycin. She was seen by ID who recommended I&D and evaluation of wound to see if it tracks the periprosthetic knee revision. ID recommended she be transferred to her original surgeon at [facility]. She was accepted there and eventually
underwent partial prosthetic knee replacement with placement of new femoral sumeet. No periprosthetic infection was noted at that time.
Since that time the left lower extremity redness has persisted although the wound has been improving.
Patient did not have any chest pain, shortness of breath, cough, nausea vomiting or diarrhea, urinary symptoms.
Patient does not smoke or drink alcohol.
Medical History
Past Medical History
Past Medical History: Reports Psychiatric and Other (obesity, breast cancer status postlumpectomy/radiation, melanoma status post incision, history of left TKR presumed prostatic joint infection of left knee, right TKR, chronic anemia, essential
hypertension, peripheral neuropathy, depression, obesity, restless leg syndrome, obstructive sleep apnea,)
Past Surgical History: Reports Other (Bowel resection (Gastric bypass), Gynecological (Hysterectomy), Orthopedic (Bilateral carpal tunnel , Left and right knee replacement, Repair fracture Left femur, ) and Other (Gastric bypass, Prolapsed rectum
repair, ))
Social History
Tobacco: Non-smoker
Alcohol: None
Drug: None
Family History
Family History: Not pertinent
Allergies / Home Medications
Allergies reflects when Allergies were last updated in [employer].
Home Medications with original date entered in [employer]
Allergy/Medication List:
Allergies
Allergy/AdvReac Type Severity Reaction Status Date / Time
adhesive tape [Adhesive Tape] Allergy Rash Verified 10/22/23 21:05
Cephalosporins Allergy Unknown Verified 10/22/23 21:05
latex [Latex] Allergy Unknown Verified 10/22/23 21:05
Penicillins Allergy trouble Verified 10/22/23 21:05
breathing
Sulfa (Sulfonamide Allergy Rash Verified 10/22/23 21:05
Antibiotics)
sulfamethoxazole Allergy Rash Verified 10/22/23 21:05
trimethoprim Allergy Rash Verified 10/22/23 21:05
Home Medications
venlafaxine 75 mg capsule,extended release 24 hr (Effexor XR) 75 mg PO DAILY Depression 02/05/11
acetaminophen 650 mg tablet,extended release (Tylenol Arthritis Pain) 1,300 mg PO DAILYPRN PRN arthritis 09/22/11
gabapentin 300 mg capsule 900 mg PO HS restless leg syndrome 07/07/23
lisinopril 20 mg tablet 20 mg PO HS Blood Pressure 07/07/23
venlafaxine 150 mg capsule,extended release 24 hr (Effexor XR) 150 mg PO DAILY Depression 07/07/23
cyanocobalamin (vitamin B-12) 500 mcg tablet 500 mcg PO DAILY 10/23/23
doxycycline monohydrate 100 mg capsule 100 mg PO BID 10/23/23
oseltamivir 75 mg capsule 75 mg PO BID 10/23/23
pramipexole 0.5 mg tablet 1.5 mg PO BID 10/23/23
pramipexole 0.5 mg tablet 1.5 mg PO DAILY PRN restless leg 10/23/23
Review of Systems
-
History Source: Patient
A 12 point ROS was completed and negative except as noted: Yes
Constitutional: Reports No Symptoms
EENT: Reports No Symptoms
Respiratory: Reports No Symptoms
Cardiac: Reports No Symptoms
Abdomen/GI: Reports No Symptoms
: Reports No Symptoms
Musculoskeletal: Reports No Symptoms
Skin: Reports No Symptoms
Neurological: Reports No Symptoms
Endocrine: Reports No Symptoms
Hematologic/Lymphatic: Reports No Symptoms
Psych: Reports No Symptoms
Physical Exam
Vital Signs
Vital Signs
Temp Pulse Resp BP Pulse Ox
102.4 F H 96 24 106/48 99
05/17/24 13:47 05/17/24 15:32 05/17/24 15:32 05/17/24 15:32 05/17/24 15:32
Physical Exam
General: Well Developed, Well Nourished and No Apparent Distress
HEENT: NormoCephalic, Moist mucous membranes and Atraumatic
Respiratory: Clear
Cardiac: S1/S2 and Regular Rhythm; No Murmur or Rub
GI: Soft, Non Tender, Non Distended and Normal Bowel Sounds; No Organomegaly
Rectal: Deferred by Provider
Musculoskeletal: No Clubbing, No Cyanosis and No Edema
Skin: Other (left lower extremity erythema ); No Rash
Neuro: Nonfocal/grossly intact
Laboratory Results
-
05/17/24 14:10
Laboratory Results
Lactic Acid 3.4 mmol/L (0.7-2.0) H 05/17/24 14:10
Lactic Acid Cancelled 05/17/24 14:10
Total Bilirubin 1.3 mg/dl (0.2-1.3) 05/17/24 14:10
AST 55 U/L (14-36) H 05/17/24 14:10
ALT 20 U/L (0-35) 05/17/24 14:10
Alkaline Phosphatase 109 U/L (38-126) 05/17/24 14:10
Troponin I 0.420 ng/ml H* 05/17/24 14:10
Data Reviewed
-
Lab Data: Labs Reviewed by me
Old Records: Reviewed
Impression/Plan
-
IMPRESSION:
PLAN:
# Septic shock (fever, tachycardia, leukocytosis, tachypnea, hypotension) source is possibly periprosthetic infection of left lower extremity/recurrent abscess
-IV fluids
-Blood cultures
-Vancomycin/meropenem
-Chest x-ray without any notable abnormalities, report pending
-Urinalysis unremarkable
-Levophed started
-Check CT scan of left lower extremity
-Monitor I's and O's
-Hold sedating medications
-ID consulted
# Acute kidney injury secondary to sepsis
# Hyperkalemia secondary to hypovolemia/lisinopril
-Sodium bicarbonate given
-Calcium gluconate given
-Given insulin/dextrose
-Recheck labs after 6 hours
# Nonischemic myocardial injury
-Troponin of 0.42
-Trend troponins
-Check EKG
Breast cancer status post lumpectomy/radiation
Melanoma status post incision
History of left total knee replacement in 06/04 with periprosthetic fracture status post revision in 09/05 and again revision at [facility] with placement of new sumeet in October
History of left lower extremity cellulitis/abscess status post I&D
-Culture grew MRSA
-Status post I&D
History of right total knee replacement
History of gastric bypass
Chronic microcytic anemia
-Hemoglobin of 8.8 close to baseline
Essential hypertension
-Hold lisinopril
Peripheral neuropathy
Anxiety/depression
-Continue venlafaxine
Restless leg syndrome
-Hold pramipexole
-Hold gabapentin
Obesity
Obstructive sleep apnea
Full code
DVT prophylaxis-heparin
Regular diet
[2024-05-17] MEDS: DEXTROSE 50% SYRINGE 25 GRAMS IV (16:21)
[2024-05-17 16:27] LABS: Glucose - Point of Care 385 mg/dl (70-99)
[2024-05-17] MEDS: NOVOLIN R 5 UNITS IV (16:27)
[2024-05-17 17:29] LABS: Glucose - Point of Care 131 mg/dl (70-99)
[2024-05-17 17:48] LABS: Glucose - Point of Care 122 mg/dl (70-99)
[2024-05-17 18:07] LABS: Potassium 4.6 mmol/L (3.5-5.1)
[2024-05-17 18:11] LABS: Lactic Acid 3.1 mmol/L (0.7-2.0)
--- NOTE | 2024-05-17 19:23 | PTCARENOTE ---
pt from ED , drowsy , able to answer questions , on Levophed at 8mcg , BP 119/59 , Temp 99.1 , ST on monitor , 02 sat 94% on room air , at 1915 her map 79 and she was decreased to 4mcg of Levophed , her breast and abdominal folds with MASD . Her
left knee and calderon reddened and warm to touch
--- NOTE | 2024-05-17 19:29 | W.PN.SEPSIS ---
Sepsis
Vital Signs
Temp Pulse Resp BP Pulse Ox
99.1 F 95 23 138/55 97
05/17/24 18:40 05/17/24 19:15 05/17/24 19:15 05/17/24 19:15 05/17/24 19:15
Physical Exam
Physical Exam:
A focused exam was performed after fluid resuscitation.
Capillary Refill
Bilateral Upper Extremity:
Marlon Time: Less than 3 sec
Bilateral Lower Extremity:
Marlon Time: Less than 3 sec
Pulse Evaluation
Bilateral Radial:
Pulse Evaluation: Present
Bilateral Dorsalis Pedis:
Pulse Evaluation: Present
--- NOTE | 2024-05-17 19:31 | PHA.VAN.IN ---
Assessment
- Assessment
Renal Function: Appears elevated from baseline
Renal Function may be Overestimated due to: obesity
Maximum Temperature: 102.4 - 05/17/24 - 13:47
Concomitant Antimicrobials: meropenem
Historical Micro: History of MRSA infection (wound culture L leg 10/2023)
AUC Dosing Plan
- Empiric Dosing
Initial / Loading Dose: 2000 mg LD - given 05/17/24 @1514
Maintenance Regimen: dose by random level due to elevated SCR
Plan
- Plan
Monitoring: zeus level AM 05/18/24
Pharmacokinetics Vancomycin I
- -
Patient Age: 73
Patient Sex: Female
Vancomycin Day #: 1
Indication: Bone And Joint
Requesting Provider: Eulalio
Pertinent Antimicrobial Allergies:
cephalosporins; penicillins; SMX/TPM
Height / Weight:
Height 5 ft
Actual Weight 97 kg
Pertinent Past Medical History: obesity,breast ca, presumed Prosthetic inf L knee
- Vital Signs / Lab Results
Temp Pulse Resp BP Pulse Ox
99.1 F 95 23 138/55 97
05/17/24 18:40 05/17/24 19:15 05/17/24 19:15 05/17/24 19:15 05/17/24 19:15
Lab Results - Hematology
05/17/24
14:10
WBC 34.8 H
Lab Results - Chemistry
05/17/24
14:10
BUN 42 H
Creatinine 2.1 H
Albumin 3.9
05/17/24 05/17/24 05/17/24
14:10 14:10 17:45
Lactic Acid 3.4 H Cancelled 3.1 H
Lab Results - Urine
05/17/24
14:10
Urine Nitrite (Reflex) Negative
Leukocyte Esterase Rfl Trace A
Urine WBC (Reflex) 0-2
Ur Squamous Epith Cells 6-10
Urine Bacteria (Reflex) Few A
Microbiology Results
05/17/24 14:13 Influenza Types A & B (JEREMIAH) - Final
Nasal Swab Negative for Influenza A & B, NAAT
Negative results must be combined with clinical observations
and patient history.
Nucleic Acid Amplification test (NAAT)performed on the
[employer] platform.
[2024-05-17 19:33] LABS: Glucose - Point of Care 141 mg/dl (70-99)
[2024-05-17] MEDS: MERREM 1000 MG IV (20:19)
[2024-05-17] MEDS: HEPARIN 5000 UNITS SC (20:19)
[2024-05-17] MEDS: STERILE WATER FOR INJECTION 20 ML IV (20:19)
--- NOTE | 2024-05-17 21:00 | PTCARENOTE ---
Assumed care of pt at 1900. Pt drowsy, arousable to voice, alert to self, able to state name and birthday but not oriented to place or time. No c/o pain. Received pt on Levophed at 4mcg/min but able to wean down and then turn off Levophed before
2029, pt has been maintaining MAP >65. SR 90s to ST low 100s on monitor. See nursing shift assessment flowsheet for further physical assessment details.
[2024-05-17] MEDS: FLEXERIL PO (21:13)
[2024-05-17 21:46] LABS: Glucose - Point of Care 123 mg/dl (70-99)
[2024-05-17 23:18] LABS: Lactic Acid 2.5 mmol/L (0.7-2.0)
[2024-05-17 23:57] LABS: INR 1.38; PT 16.8 Sec (11.4-14.6)
[2024-05-17 23:58] LABS: APTT 37.7 Sec (23.4-35.0)
[2024-05-18] VITALS (31 sets, daily range): BP systolic 51–147; BP diastolic 30–106; BMI 42.1
[2024-05-18 00:11] LABS: Blood Urea Nitrogen 47 mg/dl (7-17); Calcium 7.5 mg/dl (8.4-10.2); Carbon Dioxide 22 mmol/L (22-30); Chloride 106 mmol/L (98-107); Estimated Creatinine Clearance 40 ml/min; Glucose 114 mg/dl (70-99); Magnesium 2.1 mg/dl (1.6-2.3); Phosphorus 5.4 mg/dl (2.5-4.5); Potassium 4.6 mmol/L (3.5-5.1); Sodium 140 mmol/L (135-145); eGFR 43.15
[2024-05-18 00:21] LABS: Troponin I 0.165 ng/ml
--- NOTE | 2024-05-18 01:45 | PTCARENOTE ---
Assessment unchanged. Pt's mental status is improving, has been sleepy throughout the shift but able to have more appropriate conversation now, asking for orange juice and drank the whole cup. SR 90s to ST low 100s on monitor. Still maintaining
BP/MAP off of Levophed.
[2024-05-18] MEDS: NSS 1000 IV ×2 (02:04→09:40)
--- NOTE | 2024-05-18 05:30 | PTCARENOTE ---
399 physical assessment mostly unchanged. Pt is more alert and awake, converses as though she is oriented but when asked orientation questions pt thought she was at [place], and thought it was February or March, and that the year was 2039--when
corrected that it was 2023 she was surprised. Pt's hands are cold, unable to get pulse ox reading on fingers, pulse ox is on pt's ear. Finger tips are dusky/purple. Radial pulses present bilaterally, pt not voicing any discomfort in her hands and is
able to move/use both her hands. It has been very difficult to obtain lab work on patient, multiple staff members attempted, including in the right foot. At one point, had to use the ultrasound which also took multiple tries, and AM labs were drawn
arterially by respiratory therapist. ST 100-110s on monitor, SpO2 96-99% on 2LNC. Remains off Levophed.
[2024-05-18 05:41] LABS: Hemoglobin 8.5 g/dL (12.0-16.0); Mean Corp Hgb Conc. 31.5 g/dL (33.0-37.0); Mean Corpuscular Hgb 20.5 pg (27.0-31.0); Mean Corpuscular Volume 65.1 fL (81.0-99.0); Mean Platelet Volume 8.9 fL (7.4-10.4); Platelet Count 324 10^3/uL (130-400); Red Blood Cell Count 4.15 10^6/uL (4.20-5.40); Red Cell Dist. Width 20.4 % (11.5-14.5); White Blood Cell Count 21.4 10^3/uL (4.8-10.8)
[2024-05-18 06:00] LABS: Lactic Acid 1.6 mmol/L (0.7-2.0)
[2024-05-18 06:03] LABS: ALT (SGPT) 41 U/L (0-35); AST (SGOT) 205 U/L (14-36); Albumin 2.5 g/dl (3.5-5.0); Alkaline Phosphatase 82 U/L (38-126); Blood Urea Nitrogen 44 mg/dl (7-17); Calcium 7.5 mg/dl (8.4-10.2); Carbon Dioxide 20 mmol/L (22-30); Chloride 108 mmol/L (98-107); Estimated Creatinine Clearance 52 ml/min; Glucose 136 mg/dl (70-99); Potassium 4.4 mmol/L (3.5-5.1); Sodium 138 mmol/L (135-145); Total Bilirubin 0.3 mg/dl (0.2-1.3); Total Protein 5.5 g/dl (6.3-8.2); eGFR 59.12
[2024-05-18 06:05] LABS: Vancomycin Random 14.4 ug/ml
[2024-05-18] MEDS: STERILE WATER FOR INJECTION 20 ML IV ×2 (06:42→17:24)
[2024-05-18] MEDS: MERREM 1000 MG IV ×2 (06:42→17:24)
--- NOTE | 2024-05-18 07:37 | CON.INTV ---
Consultation
Consultation Request
Date/Time Consultation Requested: 05/18/24
Date/Time Consultation Performed: 05/18/24
Performing Provider: Theresa
Reason for Consultation: ICU
Medical History
-
History of Present Illness:
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
replacement presenting to ER with increasing somnolence and unresponsiveness. On arrival, she is noted to have leukocytosis, fever placed on antibiotics. CT showing swelling at site of knee. Husbands notes it never stopped swelling or appeared
less red since revision in October. UA appearing dark/segmented, trace LE and few bacteria noted.
She is admitted to ICU for sepsis, suspected persistent infection of left lower extremity prosthesis despite replacement in October 2023.
.
Past Medical History
Past Medical History: Other (see list below)
Social History
Tobacco: Non-smoker
Alcohol: None
Drug: None
Family History
Family History: Reviewed & Not Pertinent
Allergies / Home Medications
Allergies
Allergy/AdvReac Type Severity Reaction Status Date / Time
adhesive tape [Adhesive Tape] Allergy Rash Verified 10/22/23 21:05
Cephalosporins Allergy Unknown Verified 10/22/23 21:05
latex [Latex] Allergy Unknown Verified 10/22/23 21:05
Penicillins Allergy trouble Verified 10/22/23 21:05
breathing
Sulfa (Sulfonamide Allergy Rash Verified 10/22/23 21:05
Antibiotics)
sulfamethoxazole Allergy Rash Verified 10/22/23 21:05
trimethoprim Allergy Rash Verified 10/22/23 21:05
Home Medications
�Medication �Instructions �Recorded �Confirmed �Last Taken �Type
venlafaxine 75 mg capsule,extended 75 mg PO DAILY Depression 02/05/11 05/17/24 10/22/23 History
release 24 hr (Effexor XR)
acetaminophen 650 mg 1,300 mg PO DAILYPRN PRN arthritis 09/22/11 05/17/24 09/21/11 History
tablet,extended release (Tylenol
Arthritis Pain)
gabapentin 300 mg capsule 900 mg PO HS restless leg syndrome 07/07/23 05/17/24 10/22/23 History
lisinopril 20 mg tablet 20 mg PO HS Blood Pressure 07/07/23 05/17/24 10/22/23 History
venlafaxine 150 mg 150 mg PO HS Depression 07/07/23 05/17/24 10/22/23 History
capsule,extended release 24 hr
(Effexor XR)
cyanocobalamin (vitamin B-12) 500 500 mcg PO DAILY 10/23/23 10/23/23 10/22/23 History
mcg tablet
pramipexole 0.5 mg tablet 3 mg PO TID 10/23/23 05/17/24 10/22/23 History
aspirin 81 mg tablet,delayed 81 mg PO DAILY 05/17/24 05/17/24 Unknown History
release
cyclobenzaprine 10 mg tablet 10 mg PO TID 05/17/24 05/17/24 Unknown History
gentamicin 0.1 % topical ointment 1 applic topical QID 05/17/24 05/17/24 Unknown History
Review of Systems
-
History Source: Patient
All other systems: Negative unless noted
Constitutional: Chills
Vitals / Labs / Diagnostic Testing
Vital Signs
Temp Pulse Resp BP Pulse Ox
99.9 F 111 22 126/97 99
05/18/24 07:00 05/18/24 06:00 05/18/24 06:00 05/18/24 06:00 05/18/24 06:00
Lab Data
05/18/24 05:23
05/18/24 05:23
Laboratory Results
05/17/24
23:37
PT 16.8 H
INR 1.38
APTT 37.7 H
Microbiology
05/17/24 14:13 Nasal Swab Influenza Types A & B (JEREMIAH) - Final
Negative for Influenza A & B, NAAT
Negative results must be combined with clinical observations
and patient history.
Nucleic Acid Amplification test (NAAT)performed on the
[employer] platform.
Diagnostic Testing:
Physical Exam
-
HEENT: Normocephalic, Anicteric and Moist Mucous Membranes
Cardiovascular: S1/S2 and Regular Rhythm
Respiratory: Non-Labored Respirations
GI: Soft, Non Distended and Non Tender
Neurology: Awake, Alert, No Motor Deficits and Tremors
Skin: Warm, Dry and Good Color
General: Comfortable and Other (anxious appearing, but stable; in no acute distress)
Assessment
-
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
replacement presenting to ER with increasing somnolence and unresponsiveness. On arrival, she is noted to have leukocytosis, fever placed on antibiotics. CT showing swelling at site of knee. Husbands notes it never stopped swelling or appeared
less red since revision in October. UA appearing dark/segmented, trace LE and few bacteria noted.
She is admitted to ICU for sepsis.
Severe sepsis
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
Prior admission for similar status post transferred to [place] for revision 10/2023
Prior history of first revision August 2023
Original prosthetic placement, left total knee 06/04
SHANT
Nonischemic troponin elevation
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
Breast cancer status post lumpectomy/radiation
Melanoma status post incision
History of left total knee replacement in 05/2023 with periprosthetic fracture status post revision in 08/2023 and again revision at [facility] with placement of new sumeet 10/2023
History of left lower extremity cellulitis/abscess status post I&D/+Culture MRSA
History of right total knee replacement
History of gastric bypass
Chronic microcytic anemia
Essential hypertension
Peripheral neuropathy
Anxiety/depression
Restless leg syndrome
Morbid Obesity, BMI 42
Obstructive sleep apnea
Plan
No current signs of metabolic encephalopathy or MS changes/following commands
Denies pain at this time.
Pain/sedation: PRN
RASS goals: 0
Hemodynamically stable, not requiring pressors.
Requiring pressors: had briefly needed levophed for 1 hr, has been titrated to off this AM
Cardiac history reviewed--HTN
Prior ECHO (2014) reviewed indicating stable function
Resume home meds if able
Monitor on telemetry
Oxygen needs: stable on RA
Prior history of lung disease: DWAIN on CPAP, can resume home PAP while inpatient
Supplemental O2 as indicated to maintain sats > 89%
CXR/CT reviewed indicating NAD, repeat as needed
Diet advacement
[employer] recommendations
Aspiration precautions, HOB > 30 degrees
Speech therapy eval can be considered if at elevated risk
GI prophylaxis if indicated for mechanical ventilation >48 hours, prior history of GERD, stress ulcer formation in the critically ill
SHANT present, 2.1 -> 1.3 -> 1.0, resolved likely ATN
Resolved with IVFs
Creat at baseline 0.6-1.0, no history of renal disease
Void trials
Follow urine output, critical I/Os
Replete electrolytes as needed
Fever and increased WBC on presentation, suspect underlying knee infection but rule out other causes
ID consult obtained
Started on empiric antibiotics
Cultures sent/pending
Blood
Urine
Flu neg
Follow fever trend, WBC count
Lactate elevated on admission, 3.4 -> 1.6
CBC stable, no signs of bleeding or coagulopathy.
DVT prophylaxis as assessed based on risk, including mechanical SCDs
Can transfuse if indicated for Hb <7, plt < 10
INR WNL
No prior h/o diabetes or thyroid disease
Monitor accuchecks PRN/SS coverage if needed
Check TSH
Discussed case with care team. Can likely transfer to floors if off pressors today, we will sign off upon transfer.
Diagnostic Data
Chest X-Ray: 05/17/24- No acute cardiopulmonary process.
CT Scan:
LE CT 05/17/24- Findings in keeping with cellulitis about the left lower extremity. No discrete abscess or osseous erosions.
Echo: 04/08/15- Normal left ventricular size and systolic function. Left ventricular ejection fraction is 60-65%. Mild mitral regurgitation. Mild tricuspid regurgitation. Otherwise normal.
No prior study available for comparison.
PFT's:
Reports and relevant images were personally reviewed.
-----
Critical care time 61 mins -- this includes review of history, physical exam, medications, hemodynamic/ventilator parameters, laboratory data, imaging and discussion with house staff, pharmacy, respiratory therapy, tiedown operator, and nursing.
[2024-05-18 07:40] LABS: % Basophils 0.4 % (0-2); % Immature Granulocytes 0.6 % (0-0.5); % Lymphocytes 6.3 % (20.5-51.1); % Monocytes 3.6 % (1.7-9.3); % Neutrophils 89.1 % (42.2-75.2); Absolute Basophils 0.1 10^3/uL (0-0.2); Absolute Immature Granulocytes 0.1 10^3/uL (0-0.05); Absolute Lymphocytes 1.3 10^3/uL (1.2-3.4); Absolute Monocytes 0.8 10^3/uL (0.1-0.6); Absolute Neutrophils 19.1 10^3/uL (1.4-6.5); Nucleated Red Blood Cells % 0 %
--- NOTE | 2024-05-18 07:59 | PHA.VAN.FU ---
Vancomycin Assessment / Plan
- Assessment
Renal Function: SCR Decreasing
WBC's are: Trending Down
In the past 24 hrs, patient has been: Febrile (102.4F)
Concomitant Antimicrobials: MEROPENEM
- Assessment - Therapeutic Drug Monitoring
Random Level: 14.4
- Dosing Plan
Adjust Regimen to: 1250MG Q24H
New Regimen Predicts: AUC (557), Peak (37.6), Trough (12.9)
- Monitoring Plan
No level(s) ordered at this time: CONSIDER AT STEADY STATE
- Follow Up
Pharmacy will continue to follow.
Vancomycin Follow UP
- -
Patient Age: 73
Patient Sex: Female
Vancomycin Day #: 2
Indication: [facility]
Requesting Provider: Eulalio
Pertinent Antimicrobial Allergies:
cephalosporins; penicillins; SMX/TPM
Height / Weight:
Height 5 ft
Actual Weight 97.7 kg
Pertinent Past Medical History: obesity,breast ca, presumed Prosthetic inf L knee
- Vital Signs / Lab Results
Temp Pulse Resp BP Pulse Ox
99.9 F 111 22 126/97 99
05/18/24 07:00 05/18/24 06:00 05/18/24 06:00 05/18/24 06:00 05/18/24 06:00
Lab Results - Hematology
05/17/24 05/18/24
14:10 05:23
WBC 34.8 H 21.4 H
Lab Results - Chemistry
05/17/24 05/17/24 05/18/24
14:10 23:37 05:23
BUN 42 H 47 H 44 H
Creatinine 2.1 H 1.3 H 1.0
Estimated Creat Clear 40 52
Albumin 3.9 2.5 L
05/17/24 05/17/24 05/17/24
14:10 14:10 17:45
Lactic Acid 3.4 H Cancelled 3.1 H
05/17/24 05/18/24
22:58 05:23
Lactic Acid 2.5 H 1.6
Lab Results - Urine
05/17/24
14:10
Urine Nitrite (Reflex) Negative
Leukocyte Esterase Rfl Trace A
Ur Squamous Epith Cells 6-10
Microbiology Results
05/17/24 14:13 Influenza Types A & B (JEREMIAH) - Final
Nasal Swab Negative for Influenza A & B, NAAT
Negative results must be combined with clinical observations
and patient history.
Nucleic Acid Amplification test (NAAT)performed on the
[employer] platform.
Therapeutic Drug Monitoring
Random Vancomycin 14.4 ug/ml 05/18/24 05:23
--- NOTE | 2024-05-18 08:24 | CON.ID ---
Consultation
-
Date/Time Consultation Requested: 05/17/2024 1825
Date/Time Consultation Performed: 05/18/2024 0745
Requesting Provider: Dr. Tsai
Performing Provider: Dr. Cronin
Reason for Consultation: Clinical sepsis
Chief Complaint / Past History
History of Present Illness
Nicolle Sullivan is a 73-year-old female being evaluated at the request of Dr. Tsai regarding possible sepsis. History is obtained from chart review, along with patient interview.
The patient has a history of a left TKA in 05/[address] Sahu, with subsequent. And persistent left lower extremity edema and erythema. Workup in August 2023 showed periprosthetic fracture with large suprapatellar joint effusion and she
underwent a left TKA partial revision. She continued to have lower extremity edema, and presented back to [facility] in early October 2023 when she developed drainage from the distal leg wound. Cultures at that time revealed the presence of
MRSA, and the patient was transferred back to the orthopedic physician on 10/26/2023.
The patient presents back to [facility] yesterday after being found semiresponsive at home. According to reviewed history, the patient's is currently at the [facility] and she has been checked in on by her sister. When the
patient's had not heard from her he contacted the patient's daughter who went and found the patient slumped over in the chair. She was brought to the ER via EMS. Once here, she was found to have a rectal temperature of 102.4 degrees.
Additional workup revealed a marked leukocytosis of 34K, SHANT, lactic acidosis. The patient has been admitted to the intensive care unit.
At present, the patient denies any headache. She denies any shortness of breath, but admits to occasional cough. She denies any abdominal pain. She denies any dysuria. She reports occasional pain in the left leg, along with occasional drainage.
She notes that she is maintained on suppressive doxycycline.
Past History
Additional Past Medical History:
HTN
Restless leg syndrome
Hx breast CA (s/p lumpectomy, XRT)
Anxiety/depression
Additional Past Surgical History:
(L) TKR (05/2023; [facility]; subsequent periprosthetic fracture s/p revision 08/2023)
Right TKR (2012)
Gastric bypass
Melanoma excision of left calderon
NAN
Allergy History:
adhesive tape [Adhesive Tape] Allergy (Verified 10/22/23 21:05)
Rash
Cephalosporins Allergy (Verified 10/22/23 21:05)
Unknown
latex [Latex] Allergy (Verified 10/22/23 21:05)
Unknown
Penicillins Allergy (Verified 10/22/23 21:05)
trouble breathing
Sulfa (Sulfonamide Antibiotics) Allergy (Verified 10/22/23 21:05)
Rash
sulfamethoxazole Allergy (Verified 10/22/23 21:05)
Rash
Medications Reviewed: Yes
Current Antibiotics:
Vancomycin
Meropenem
Social History
Tobacco: Non-Smoker
Alcohol: None
Drug: None
Personal:
Living: With Family
Employment: Not Employed
Family History
Family History: Not Pertinent
Review of Systems
Vital Signs
Temp Pulse Resp BP Pulse Ox
99.9 F 111 22 126/97 99
05/18/24 07:00 05/18/24 06:00 05/18/24 06:00 05/18/24 06:00 05/18/24 06:00
Physical Exam
Physical Exam
Constitutional: Acutely Ill, Chronically Ill, Non-toxic and Obese
Head: Normocephalic
Eyes: Pupils Equal, Pupils Round, No Conjunctival Hemorrhage and Sclera Anicteric
Oral: No Thrush and No Ulcers
Cardiovascular: Regular Rate and S1/S2; Negative S3/S4
Pulmonary: Clear; Negative Wheezes, Rales or Rhonchi
Gastrointestinal: Soft, Non Tender, Non Distended, Normal Bowel Sounds, No Rebound and No Guarding
Genito-Urinary: Portillo and Clear Urine; Negative Turbid Urine or Hematuria
Extremities: Edema, Erythema (Left lower extremity) and Pulses; Negative Calf Swelling
Musculoskeletal: Negative Joint Swelling or Joint Effusion
Skin: Warm and Dry
Wound: Other (Anterior proximal tibial area)
Neurological: Awake and Alert
Psychological: Calm
Lab / Diagnostic Study Results
05/18/24 05:23
05/18/24 05:23
Abs Immat Gran (auto) 0.1 10^3/uL (0-0.05) H 05/18/24 05:23
Absolute Neuts (auto) 19.1 10^3/uL (1.4-6.5) H 05/18/24 05:23
Absolute Lymphs (auto) 1.3 10^3/uL (1.2-3.4) 05/18/24 05:23
Absolute Monos (auto) 0.8 10^3/uL (0.1-0.6) H 05/18/24 05:23
Absolute Basos (auto) 0.1 10^3/uL (0-0.2) 05/18/24 05:23
Immature Gran % 0.6 % (0-0.5) H 05/18/24 05:23
Neutrophils % 89.1 % (42.2-75.2) H 05/18/24 05:23
Lymphocytes % 6.3 % (20.5-51.1) L 05/18/24 05:23
Monocytes % 3.6 % (1.7-9.3) 05/18/24 05:23
Eosinophils % 0.0 % (0-6) 05/18/24 05:23
Basophils % 0.4 % (0-2) 05/18/24 05:23
PT 16.8 Sec (11.4-14.6) H 05/17/24 23:37
INR 1.38 05/17/24 23:37
Lactic Acid 1.6 mmol/L (0.7-2.0) 05/18/24 05:23
Ur Squamous Epith Cells 6-10 /LPF (Few) 05/17/24 14:10
Microbiology Results
Micro:
05/17/24 14:13 Influenza Types A & B (JEREMIAH) - Final
Nasal Swab Negative for Influenza A & B, NAAT
Negative results must be combined with clinical observations
and patient history.
Nucleic Acid Amplification test (NAAT)performed on the
[employer] platform.
05/17/24 14:10 Blood Culture - Pending
Blood/Venous
05/17/24 14:10 Blood Culture - Pending
Blood/Venous
Imaging:
05/17/2024 CT left lower extremity without contrast: Total knee prosthesis hardware is partially visualized without overt complication. No acute fracture or dislocation. Mild to moderate degenerative changes. No overt osseous erosions. There is
moderate diffuse subcutaneous edema throughout the lower extremity. No loculated fluid collections noted. Please see full dictation for additional detail.
05/17/2024 CXR (portable): No convincing focal infiltrates. No significant pleural effusions. No visualized pneumothorax noted. Please see full dictation for additional detail.
Assessment / Plan
Clinical sepsis
Fever
Leukocytosis
SHANT
Lactic acidosis
Left lower extremity erythema; suspected cellulitis
Transaminitis
Hx MRSA
Hx infected orthopedic hardware left lower extremity; on chronic suppression
Multiple antibiotic allergies, including PCN, Ceph, sulfa
HTN
Restless leg syndrome
Hx breast CA (s/p lumpectomy, XRT)
Anxiety/depression
Recommendations:
Continue with empiric vancomycin and meropenem for the present.
Monitor white count and temperature curve.
Trend lactate. Trend LFTs
Monitor Vanco levels closely
Follow creatinine and estimated creatinine clearance to guide antibiotic dosing.
Monitor pending cultures
Local care to left lower extremity wound.
Further recommendations as additional data is returned.
--- NOTE | 2024-05-18 08:30 | PTCARENOTE ---
pt awake and alert this am , NST on monitor , BP138/46 , asking to eat , restless in bed , large amt of loose liquid brown stool while transferring to chair , off of Levophed gtt since 2029 , at bedside , labs noted, WBC down from
[id number] , trending lactate level down to 1.6
--- NOTE | 2024-05-18 08:47 | W.PN.HOSP.TC ---
Today's Communication/Plan
-
cont abx vanc meropenem as per ID
wound care
monitor pressures
home gabapentin and pramipexole resumed reduced dose
Possible downgrade to IMU later today if patient remains stable of pressors
Monitor H&H check B12 Folate Iron Studies
Assessment / Plan
Assessment / Plan
Physical Exam
General: Well Developed, Well Nourished and No Apparent Distress
HEENT: NormoCephalic, Moist mucous membranes and Atraumatic
Respiratory: Clear on nasal cannula 2L stable respiratory status non-labored respiration
Cardiac: S1/S2 Tachy; No Murmur or Rub
GI: Soft, Non Tender, Non Distended and Normal Bowel Sounds; No Organomegaly
Musculoskeletal: No Clubbing, No Cyanosis and No Edema
Skin: left lower extremity erythema flaking of skin, wound bandage in place clean dry intact
Neuro: Nonfocal/grossly intact
# Septic shock (fever, tachycardia, leukocytosis, tachypnea, hypotension) possibly d/t cellulitis vs periprosthetic infection of left lower extremity
#Left Lower ext wound
ICU admit
-Briefly on Levophed since weaned off
-IV fluids completed tolerating diet SHANT resolved weaned off pressor as above
-Blood cultures NGTD
-Chest x-ray appreciated no acute abn's
-Urinalysis unremarkable
-CT LLE appreciated appreciated cellulitis
-Monitor I's and O's
-ID consult appreciated cont Vancomycin/meropenem
-Ophthalmic Pathologist eval appreciated
-wound care
# Acute kidney injury secondary to sepsis
# Hyperkalemia secondary to hypovolemia/lisinopril
-Temporized w/ bicarbonate given Calcium gluconate insulin/dextrose in ED
-Hyperkalemia SHANT since resolved
# Nonischemic myocardial injury d/t severe sepsis/shock
-intial Troponin 0.420 since trended down
-EKG appreciated NSR T wave amplitudes likely increased d/t hyperkalemia as above (hyperkalemia since resolved)
-Chest pain free
Breast cancer status post lumpectomy/radiation
Melanoma status post incision
History of left total knee replacement in 06/04 with periprosthetic fracture status post revision in 09/05 and again revision at [facility] with placement of new sumeet in October
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
History of right total knee replacement
History of gastric bypass
Chronic microcytic anemia
-Likely exacerbated by severe infection as above
-monitor for now, H&H stable.
-check B12 Folate Iron studies
Essential hypertension
-Hold lisinopril d/t shock hyperkalemia shant as above
-monitor and adjust antihypertensive regimen as necessary.
Peripheral neuropathy
Anxiety/depression
-Continue venlafaxine
Restless leg syndrome
-resume pramipexole reduced dose d/t recent SHANT 1.5 mg in AM and 3mg at bedtime (prescribed TID but patient reports she takes 3mg BID), could consider switch to 4.5mg bedtime depending on clinical progress/response
-resume gabapentin reduced dosage d/t recent SHANT, 300 mg HS (home dose 900 mg HS)
Obesity
Obstructive sleep apnea
Full code
DVT prophylaxis-heparin
Regular diet
Total Critical Care Time__50___ minutes. I was immediately available to the patient and staff. I personally examined, reviewed labs, diagnostic images/reports, interpretations, treatment plans, discussed patient care with other providers,
patient, and patient's family( Frank and son Ilan), entered orders as appropriate and documented the medical record.
Anticipated Discharge: > 48 hours
Subjective/Interval History
-
Date of Service: May 18, 2024
Seen and examined at bedside in no acute distress resting comfortably in bed. Overall reports feeling well. Awake Alert Conversant. Family Frank and son Ilan present during evaluation.
Objective Data
-
Labs:
Laboratory Results
05/17/24 05/18/24
23:37 05:23
WBC 21.4 H
Hgb 8.5 L
Hct 27.0 L
Plt Count 324 D
PT 16.8 H
INR 1.38
APTT 37.7 H
Sodium 140 138
Potassium 4.6 4.4
Chloride 106 108 H
Carbon Dioxide 22 20 L
BUN 47 H 44 H
Creatinine 1.3 H 1.0
Glucose 114 H 136 H
Calcium 7.5 L 7.5 L
Total Bilirubin 0.3 D
AST 205 H
ALT 41 H
Alkaline Phosphatase 82
Vital Signs:
Vital Signs
Temp Pulse Resp BP Pulse Ox
99.9 F 111 22 126/97 99
05/18/24 07:00 05/18/24 06:00 05/18/24 06:00 05/18/24 06:00 05/18/24 06:00
I&O
05/17/24 05/18/24 05/19/24
06:59 06:59 06:59
Intake Total 1885.75 / 1885.75
Output Total 995 / 995
Balance 890.75 / 890.75
[2024-05-18] MEDS: ASPIR LOW (ENTERIC COATED) 81 MG PO (09:41)
[2024-05-18] MEDS: FLEXERIL 10 MG PO ×3 (09:41→21:38)
[2024-05-18] MEDS: HEPARIN 5000 UNITS SC ×2 (09:41→21:30)
[2024-05-18 10:20] LABS: Iron < 20 ug/dl (37-170)
[2024-05-18 10:40] LABS: Total Iron Binding Capacity 240 ug/dl (265-497)
[2024-05-18 12:09] LABS: Ferritin 58.1 ng/ml (11.1-264.0)
[2024-05-18] MEDS: MIRAPEX, GENERIC 1.5 MG PO (12:20)
[2024-05-18] MEDS: VANCOCIN 275 MG IV (12:24)
[2024-05-18 12:41] LABS: Folate 15.7 ng/ml (2.76-20); Vitamin B12 417 pg/ml (239-931)
--- NOTE | 2024-05-18 13:00 | PTCARENOTE ---
pt oob to chair for 2 hours , her BP dropped , map of 39 she was placed back on levophed gtt at 1015 and she is currently on 4 mcg , pt to have picc line placed
--- NOTE | 2024-05-18 14:45 | CM ---
CM following re: discharge planning.
Reviewed pt's chart, met with pt.
Pt is a 73 year old male, admitted with primary dx of Severe sepsis.
Pt lives with spouse 2SH, 5 steps to enter, ambulates with a walker ay baseline, known to [facility].
PT and OT will evaluate the pt to determine a level of care at discharge.
D/C plan: most likely home with [facility] and family support.
CM will follow with discharge plan updates as hospitalization progresses
[2024-05-18] MEDS: TYLENOL 650 MG PO (17:23)
[2024-05-18] MEDS: LEVOPHED 250 IV (17:24)
--- NOTE | 2024-05-18 18:22 | PTCARENOTE ---
R dual lumen picc line placed, continues with 4mcg of Levophed , appetite is poor
--- NOTE | 2024-05-18 21:20 | PTCARENOTE ---
Resumed care of pt this evening. Received pt on levo gtt infusing at 4 mcg/min via right PICC central liine. On assessment pt appears drowsy but arousable to verbal and tactile stimuli. Pt has generalized weakness but is able to move all 4
extremities. Pt is NSR on tele monitor, has +1 pitting edema B/L lower extremities, and weak but palpable pedal pulses. Pt on 2L of O2 satting at 97% pulse ox. On auscultation pt lungs sound diminished and coarse at bases bilaterally. Pt's abdomen
is round and obese w/ hypoactive BS. FMS is place draining liquid brown stool. Portillo in place draining dionisio colored urine w/ sediment. Pt has some MSAD on abdominal area, anti fungal powder applied by this RN.
[2024-05-18] MEDS: DESENEX/MITRAZOL/ZEASORB 1 APPLIC TOPICAL (21:29)
[2024-05-18] MEDS: EFFEXOR XR 150 MG PO (21:33)
[2024-05-18] MEDS: EFFEXOR XR 75 MG PO (21:33)
[2024-05-18] MEDS: NEURONTIN 300 MG PO (21:39)
[2024-05-18] MEDS: MIRAPEX, GENERIC 3 MG PO (21:39)
[2024-05-19] VITALS (17 sets, daily range): BP systolic 104–144; BP diastolic 50–107; PULSE 114; O2SAT 98–99; BMI 42.5
--- NOTE | 2024-05-19 01:30 | PTCARENOTE ---
Upon reassessment pt is resting comfortably. Levo gtt tapered to 2 mcg/min per order.
[2024-05-19 04:44] LABS: Hematocrit 27.3 % (37.0-47.0); Hemoglobin 8.5 g/dL (12.0-16.0); Mean Corp Hgb Conc. 31.1 g/dL (33.0-37.0); Mean Corpuscular Hgb 20.9 pg (27.0-31.0); Mean Corpuscular Volume 67.2 fL (81.0-99.0); Mean Platelet Volume 9.2 fL (7.4-10.4); Platelet Count 290 10^3/uL (130-400); Red Blood Cell Count 4.06 10^6/uL (4.20-5.40); Red Cell Dist. Width 20.4 % (11.5-14.5); White Blood Cell Count 16.7 10^3/uL (4.8-10.8)
[2024-05-19 05:09] LABS: ALT (SGPT) 43 U/L (0-35); AST (SGOT) 147 U/L (14-36); Albumin 2.3 g/dl (3.5-5.0); Alkaline Phosphatase 82 U/L (38-126); Blood Urea Nitrogen 41 mg/dl (7-17); Calcium 7.8 mg/dl (8.4-10.2); Carbon Dioxide 24 mmol/L (22-30); Chloride 106 mmol/L (98-107); Estimated Creatinine Clearance 74 ml/min; Glucose 118 mg/dl (70-99); Magnesium 2.3 mg/dl (1.6-2.3); Phosphorus 3.5 mg/dl (2.5-4.5); Potassium 4.3 mmol/L (3.5-5.1); Sodium 138 mmol/L (135-145); Total Bilirubin 0.2 mg/dl (0.2-1.3); Total Protein 5.1 g/dl (6.3-8.2); eGFR > 60.00
[2024-05-19] MEDS: MERREM 1000 MG IV ×3 (05:59→21:12)
[2024-05-19] MEDS: STERILE WATER FOR INJECTION 20 ML IV ×3 (05:59→21:13)
[2024-05-19] MEDS: VANCOCIN 275 MG IV (05:59)
--- NOTE | 2024-05-19 06:22 | PTCARENOTE ---
Levo gtt turned off at 0330 per protocol.
--- NOTE | 2024-05-19 08:30 | PTCARENOTE ---
Assumed care of pt at 0715 following shift report. Pt awake and resting quietly in bed. Denies c/o pain or SOB. Pt not receiving any continuous IV's. O2 at 2l/min w/ POx 99%. PORTILLO noted w/ audible expiratory wheezes. Portillo patent and draining small
amount dionisio urine. FMS in place w/ small amount liquid brown BM noted in tubing- none in bag. Physical assessment completed as documented. Pt provided glasses and bilateral hearing aides as requested. Comfort care provided. Call foss w/in pt reach
and safe environment maintained.
[2024-05-19] MEDS: FLEXERIL 10 MG PO ×3 (08:46→21:16)
[2024-05-19] MEDS: HEPARIN 5000 UNITS SC (08:46)
[2024-05-19] MEDS: MIRAPEX, GENERIC 1.5 MG PO (08:46)
[2024-05-19] MEDS: ASPIR LOW (ENTERIC COATED) 81 MG PO (08:46)
[2024-05-19] MEDS: DESENEX/MITRAZOL/ZEASORB 1 APPLIC TOPICAL (08:47)
--- NOTE | 2024-05-19 09:04 | W.PN.HOSP.TC ---
Today's Communication/Plan
-
Continue antibiotics
Appreciate ID and Fleet Dispatch Manager
Assessment / Plan
Assessment / Plan
Physical Exam
General: Not in Acute Distress
HEENT: Normocephalic
Respiratory: Clear to Auscultation Bilaterally. ON ROOM AIR NOW.
Cardiac: S1/S2 Tachy
GI: Soft, Non Tender, Non Distended and Normal Bowel Sounds
Musculoskeletal: No Cyanosis and No Edema
Skin: left lower extremity erythema flaking of skin, wound bandage in place clean dry intact
Neuro: Nonfocal/grossly intact
73 y/o female with bilateraly TKA Restless Leg Syndrome (on high dose Mirapex) was here earlier in the year for sepsis concern for periprosthetic infection abscess transferred to [facility] care, here with septic shock possibly
due to LLE sever cellulitis (same leg).
#Septic shock (fever, tachycardia, leukocytosis, tachypnea, hypotension) possibly d/t cellulitis vs periprosthetic infection of left lower extremity
#Left Lower ext wound
-Initially admitted to ICU. Briefly on Levophed since weaned off.
-IV fluids completed tolerating diet SHANT resolved weaned off pressor as above
-Blood cultures NGTD
-Chest x-ray appreciated no acute abn's
-Urinalysis unremarkable
-CT LLE appreciated appreciated cellulitis
-Monitor I's and O's
-ID consult appreciated cont Vancomycin/meropenem
-Fleet Dispatch Manager eval appreciated
-wound care
# Acute kidney injury - RESOLVED - suspected secondary to sepsis
# Hyperkalemia secondary to hypovolemia/lisinopril
-Temporized w/ bicarbonate given Calcium gluconate insulin/dextrose in ED
-Hyperkalemia SHANT since resolved
# Nonischemic myocardial injury d/t severe sepsis/shock
-intial Troponin 0.420 since trended down
-EKG appreciated NSR T wave amplitudes likely increased d/t hyperkalemia as above (hyperkalemia since resolved)
-Chest pain free
Breast cancer status post lumpectomy/radiation
Melanoma status post incision
History of left total knee replacement in 06/04 with periprosthetic fracture status post revision in 09/05 and again revision at [facility] with placement of new sumeet in October
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
History of right total knee replacement
History of gastric bypass
Chronic microcytic anemia
-Likely exacerbated by severe infection as above
-monitor for now, H&H stable.
-checked B12 (417) Folate (15.7) Iron studies show low iron and low % iron saturation
-Will need to decide when to start iron given patient's active infection which is being treated with antibiotics (concern regarding iron making infection worse)
Essential hypertension
-Hold lisinopril d/t shock hyperkalemia shant as above
-monitor and adjust antihypertensive regimen as necessary.
Peripheral neuropathy
Anxiety/depression
-Continue venlafaxine
Restless leg syndrome
-resume pramipexole reduced dose d/t recent SHANT 1.5 mg in AM and 3mg at bedtime (prescribed TID but patient reports she takes 3mg BID), could consider switch to 4.5mg bedtime depending on clinical progress/response
-resume gabapentin reduced dosage d/t recent SHANT, 300 mg HS (home dose 900 mg HS)
Obesity
Obstructive sleep apnea
-Continue home CPAP if able
Full code
DVT prophylaxis-heparin
Regular diet
On May 19, 2024, I spoke with both patient and her Frank inside patient's room. All questions and concerns were answered to satisfaction.
Total time spent on reviewing patient's chart, seeing and examining the patient, speaking with the patient's and time spent on documentation, was 55 minutes.
Anticipated Discharge: > 48 hours
Subjective/Interval History
-
Date of Service: May 19, 2024
Patient was seen and examined. Regarding her left lower extremity symptoms, she and her mentioned the symptoms have improved, overall she is feeling better.
Objective Data
-
Labs:
Laboratory Results
05/19/24
04:29
WBC 16.7 H
Hgb 8.5 L
Hct 27.3 L
Plt Count 290
Sodium 138
Potassium 4.3
Chloride 106
Carbon Dioxide 24
BUN 41 H
Creatinine 0.7
Glucose 118 H
Calcium 7.8 L
Total Bilirubin 0.2
AST 147 H
ALT 43 H
Alkaline Phosphatase 82
Vital Signs:
Vital Signs
Temp Pulse Resp BP Pulse Ox
98.4 F 93 27 129/63 95
05/19/24 08:00 05/19/24 06:00 05/19/24 06:00 05/19/24 06:00 05/19/24 00:00
I&O
05/18/24 05/19/24 05/20/24
06:59 06:59 06:59
Intake Total 1885.75 / 2005.75 2697.5 / 2697.5
Output Total 995 / 1075 930 / 930
Balance 890.75 / 930.75 1767.5 / 1767.5
--- NOTE | 2024-05-19 10:56 | PTCARENOTE ---
Portillo catheter removed. Urine dionisio and 100ml emptied- Dr Kaiser aware of urine output. Pt downgrade to tele level of care. FMS removed as pt w/ small output (liquid stool only in tubing- not large enough amount to reach collection bag). Berenice care
provided and brief placed at pt request. Pt OOB to chair w/ assist of two staff and use of rolling walker. PORTILLO w/ audible wheezes noted - POx 94-97% on RA. Pt states 'I'm usually like this'. Hygiene completed. Call foss remains w/in pt reach. No
additional changes from previous assessment findings.
--- NOTE | 2024-05-19 11:11 | PHA.VAN.FU ---
Vancomycin Assessment / Plan
- Assessment
Renal Function: SCR Decreasing (BUN remains elevated in the 40's)
WBC's are: Trending Down
In the past 24 hrs, patient has been: Afebrile
Concomitant Antimicrobials: meropenem
- Dosing Plan
Adjust Regimen to: dosing by level
Dosing Comments: received 1250mg 05/19 05:59
Patient's est CrCl with improved SCR predicts Q12H dosing interval but BUN remains elevated
Will switch back to dosing by level to ensure clearing appropriately and to assess dosing interval
- Monitoring Plan
Random Level: 05/20 0600
- Follow Up
Pharmacy will continue to follow.
Vancomycin Follow UP
- -
Patient Age: 73
Patient Sex: Female
Vancomycin Day #: 3
Indication: Bone And Joint
Requesting Provider: Eulalio Cronin
Pertinent Antimicrobial Allergies:
penicillins - trouble breathing
cephalosporins - unknown
sulfonamide abx - rash
Height / Weight:
Height 5 ft
Actual Weight 98.8 kg
Pertinent Past Medical History: BMI ~42.5
- Vital Signs / Lab Results
Temp Pulse Resp BP Pulse Ox
98.4 F 108 31 134/79 94
05/19/24 08:00 05/19/24 10:00 05/19/24 10:00 05/19/24 09:00 05/19/24 08:20
Lab Results - Hematology
05/17/24 05/18/24 05/19/24
14:10 05:23 04:29
WBC 34.8 H 21.4 H 16.7 H
Lab Results - Chemistry
05/17/24 05/17/24 05/18/24
14:10 23:37 05:23
BUN 42 H 47 H 44 H
Creatinine 2.1 H 1.3 H 1.0
Estimated Creat Clear 40 52
Albumin 3.9 2.5 L
05/19/24
04:29
BUN 41 H
Creatinine 0.7
Estimated Creat Clear 74
Albumin 2.3 L
05/17/24 05/17/24 05/17/24
14:10 14:10 17:45
Lactic Acid 3.4 H Cancelled 3.1 H
05/17/24 05/18/24
22:58 05:23
Lactic Acid 2.5 H 1.6
Microbiology Results
05/18/24 09:53 Salmonella/Shigella Culture - Preliminary
Feces/Stool Culture in Progress
Campylobacter Culture - Preliminary
Culture in Progress
Shiga Toxin Test - Final
No E. coli Shiga Toxin 1 or 2 detected.
05/17/24 14:10 Blood Culture - Preliminary
Blood/Venous No Growth in 24 hours- Final report to follow
05/17/24 14:10 Blood Culture - Preliminary
Blood/Venous No Growth in 24 hours- Final report to follow
05/18/24 09:53 C. difficile GDH Antigen & Toxins - Final
Feces/Stool Negative for toxigenic C.difficile
05/17/24 14:13 Influenza Types A & B (JEREMIAH) - Final
Nasal Swab Negative for Influenza A & B, NAAT
Negative results must be combined with clinical observations
and patient history.
Nucleic Acid Amplification test (NAAT)performed on the
[employer] platform.
Therapeutic Drug Monitoring
Random Vancomycin 14.4 ug/ml 05/18/24 05:23
--- NOTE | 2024-05-19 12:00 | PTCARENOTE ---
Pt found disconnected from cardiac catheterization technician and lying flat in bed. Pt's in room and reports he helped pt get from chair to bed 'she wanted to get back to bed'. Pt and her encouraged to use call ofss to alert staff to pt's request to
return to bed and then to wait for staff assistance in transferring pt. Pt and verbalized understanding. Pt incontinent of large loose dark brown BM. Pericare hygiene provided. Pt resting quietly in bed at present w/o changes or complaints.
--- NOTE | 2024-05-19 12:16 | W.PN.ID1 ---
Date of Service
Date of Service: May 19, 2024
Today's Communication
Continue antibiotics
Assessment / Plan
Clinical sepsis
Fever
Leukocytosis
SHANT
Lactic acidosis
Left lower extremity erythema; suspected cellulitis
Transaminitis
Hx MRSA
Hx infected orthopedic hardware left lower extremity; on chronic suppression
Multiple antibiotic allergies, including PCN, Ceph, sulfa
HTN
Restless leg syndrome
Hx breast CA (s/p lumpectomy, XRT)
Anxiety/depression
Recommendations:
Continue with empiric vancomycin and meropenem for the present.
Monitor white count and temperature curve.
Trend lactate. Trend LFTs
Monitor Vanco levels closely
Follow creatinine and estimated creatinine clearance to guide antibiotic dosing.
Monitor pending cultures (no growth to date.)
Local care to left lower extremity wound.
Further recommendations as additional data is returned.
����������������������������������������������������������
Chief Complaint
-: Leukocytosis and Clinical Sepsis
Subjective / Review of Systems
Patient seen and examined. Reports feeling somewhat improved today.
Vital Signs / Physical Exam
Vital Signs
Vital Signs
Temp Pulse Resp BP Pulse Ox
98.3 F 108 31 134/79 94
05/19/24 12:00 05/19/24 10:00 05/19/24 10:00 05/19/24 09:00 05/19/24 08:20
Physical Exam
Constitutional: Comfortable, Non-toxic and Obese
Eyes: No Conjunctival Hemorrhage and Sclera Anicteric
Cardiovascular: S1/S2; Negative S3/S4
Pulmonary: Wheezes and Non Labored; Negative Rhonchi
Gastrointestinal: Soft, Distended, Normal Bowel Sounds, No Rebound and No Guarding
Extremities: Edema and Erythema (Without significant warmth.)
Neurological: Awake and Alert
Psychological: Calm
Objective Data
Lab Data
Lab Results
05/19/24 04:29
05/19/24 04:29
PT 16.8 Sec (11.4-14.6) H 05/17/24 23:37
INR 1.38 05/17/24 23:37
APTT 37.7 Sec (23.4-35.0) H 05/17/24 23:37
Estimated Creat Clear 74 ml/min 05/19/24 04:29
Lactic Acid 1.6 mmol/L (0.7-2.0) 05/18/24 05:23
Total Bilirubin 0.2 mg/dl (0.2-1.3) 05/19/24 04:29
AST 147 U/L (14-36) H 05/19/24 04:29
ALT 43 U/L (0-35) H 05/19/24 04:29
Alkaline Phosphatase 82 U/L (38-126) 05/19/24 04:29
Most recent labs reviewed.
Micro Results:
05/18/24 09:53 Salmonella/Shigella Culture - Preliminary
Feces/Stool Culture in Progress
Campylobacter Culture - Preliminary
Culture in Progress
Shiga Toxin Test - Final
No E. coli Shiga Toxin 1 or 2 detected.
05/17/24 14:10 Blood Culture - Preliminary
Blood/Venous No Growth in 24 hours- Final report to follow
05/17/24 14:10 Blood Culture - Preliminary
Blood/Venous No Growth in 24 hours- Final report to follow
05/18/24 09:53 C. difficile GDH Antigen & Toxins - Final
Feces/Stool Negative for toxigenic C.difficile
05/17/24 14:13 Influenza Types A & B (JEREMIAH) - Final
Nasal Swab Negative for Influenza A & B, NAAT
Negative results must be combined with clinical observations
and patient history.
Nucleic Acid Amplification test (NAAT)performed on the
[employer] platform.
Imaging:
05/17/2024 CT left lower extremity without contrast: Total knee prosthesis hardware is partially visualized without overt complication. No acute fracture or dislocation. Mild to moderate degenerative changes. No overt osseous erosions. There is
moderate diffuse subcutaneous edema throughout the lower extremity. No loculated fluid collections noted. Please see full dictation for additional detail.
05/17/2024 CXR (portable): No convincing focal infiltrates. No significant pleural effusions. No visualized pneumothorax noted. Please see full dictation for additional detail.
--- NOTE | 2024-05-19 12:28 | W.PN.INTV ---
Today's Communication / Plan
Recommendations
Continue antibiotics
Follow cultures
May use home CPAP if available
Increase activity as able
Transfer to telemetry
Sign off
Assessment
-
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
replacement presenting to ER with increasing somnolence and unresponsiveness. On arrival, she is noted to have leukocytosis, fever placed on antibiotics. CT showing swelling at site of knee. Husbands notes it never stopped swelling or appeared
less red since revision in October. UA appearing dark/segmented, trace LE and few bacteria noted.
She is admitted to ICU for sepsis.
Severe sepsis
Persistent left lower extremity MRSA ?/prosthetic infection
Cellulitis
Prior admission for similar status post transferred to [place] for revision 10/2023
Prior history of first revision August 2023
Original prosthetic placement, left total knee 06/04
SHANT
Nonischemic troponin elevation
Conditions present CHEMICAL OPERATIONS AND TRAINING
Breast cancer status post lumpectomy/radiation
Melanoma status post incision
History of left total knee replacement in 05/2023 with periprosthetic fracture status post revision in 08/2023 and again revision at [facility] with placement of new sumeet 10/2023
History of left lower extremity cellulitis/abscess status post I&D/+Culture MRSA
History of right total knee replacement
History of gastric bypass
Chronic microcytic anemia
Essential hypertension
Peripheral neuropathy
Anxiety/depression
Restless leg syndrome
Morbid Obesity, BMI 42
Obstructive sleep apnea
Plan
-
Clinically improved.
Hemodynamically stable-vasopressors discontinued
Hemodynamically stable, not requiring pressors.
Leukocytosis improving
Afebrile
-
Fever and increased WBC on presentation, suspect cellulitis
ID following the patient-on broad-spectrum antibiotic
Cultures negative so far
Again, fever curve improved. Leukocytosis improved
Hemodynamics improved
Renal function improved
-
Cardiac history reviewed--HTN
Prior ECHO (2014) reviewed indicating stable function
Resume home meds if able
Monitor on telemetry
Prior history of lung disease: DWAIN on CPAP, can resume home PAP while inpatient
Supplemental O2 as indicated to maintain sats > 89%
CXR/CT reviewed indicating NAD, repeat as needed
SHANT present, 2.1 -> 1.3 -> 1.0, resolved likely ATN
Resolved with IVFs
Replete electrolytes as needed
Monitor accuchecks PRN/SS coverage if needed
Transfer to telemetry
No additional recommendation from the critical care perspective.
Please call pulmonary if any respiratory issues arise
Diagnostic Data
Chest X-Ray: 05/17/24- No acute cardiopulmonary process.
CT Scan:
LE CT 05/17/24- Findings in keeping with cellulitis about the left lower extremity. No discrete abscess or osseous erosions.
Echo: 04/08/15- Normal left ventricular size and systolic function. Left ventricular ejection fraction is 60-65%. Mild mitral regurgitation. Mild tricuspid regurgitation. Otherwise normal.
No prior study available for comparison.
PFT's:
Reports and relevant images were personally reviewed.
-----
Subjective Dataa
Subjective Data
Date of Service:
Date of Service: May 19, 2024
Chief Complaint: Tool And Die Supervisor Follow Up (Septic shock)
Subjective:
Clinically improved
Off vasopressors
Denies any shortness of breath or chest pain next
Review of Systems
General: Fever (n)
Cardiopulmonary: Dyspnea (n)
GI: Abdominal Pain (n) and Nausea (n)
Objective Data
Data Reviewed
Vital Signs / I&O / Oxygen:
Vital Signs
Temp Pulse Resp BP Pulse Ox
98.3 F 108 31 134/79 94
05/19/24 12:00 05/19/24 10:00 05/19/24 10:00 05/19/24 09:00 05/19/24 08:20
Intake and Output
05/18/24 05/19/24 05/20/24
06:59 06:59 06:59
Intake Total 1885.75 / 2005.75 2697.5 / 2697.5 0 / 0
Output Total 995 / 1075 930 / 930 100 / 100
Balance 890.75 / 930.75 1767.5 / 1767.5 -100 / -100
SaO2 94
Nasal Cannula flow liters per 2
minute
Physical Exam
General: Comfortable
HEENT: Normocephalic
Cardiovascular: S1-S2
Respiratory: Clear and Non-Labored Respirations
GI: Non Distended
Neurology: Awake and Oriented
Skin: Other (Left lower extremity erythema.)
Labs/Micro/Reports
Lab Data
05/19/24 04:29
05/19/24 04:29
Microbiology
05/18/24 09:53 Feces/Stool Salmonella/Shigella Culture - Preliminary
Culture in Progress
05/18/24 09:53 Feces/Stool Campylobacter Culture - Preliminary
Culture in Progress
05/18/24 09:53 Feces/Stool Shiga Toxin Test - Final
No E. coli Shiga Toxin 1 or 2 detected.
05/17/24 14:10 Blood/Venous Blood Culture - Preliminary
No Growth in 24 hours- Final report to follow
05/17/24 14:10 Blood/Venous Blood Culture - Preliminary
No Growth in 24 hours- Final report to follow
05/18/24 09:53 Feces/Stool C. difficile GDH Antigen & Toxins - Final
Negative for toxigenic C.difficile
05/17/24 14:13 Nasal Swab Influenza Types A & B (JEREMIAH) - Final
Negative for Influenza A & B, NAAT
Negative results must be combined with clinical observations
and patient history.
Nucleic Acid Amplification test (NAAT)performed on the
[employer] platform.
--- NOTE | 2024-05-19 13:27 | CM ---
CM following re: discharge planning.
Reviewed pt's chart, met with pt and pt's at bedside. Per rounds meeting, continue antibiotics, continue supportive care and pt will be downgraded from ICU level of care.
PT and will evaluate the pt to determine a level of care at discharge.
D/C plan: most likely home with [facility] if recommended by PT/OT and family support.
CM will follow with discharge plan updates as hospitalization progresses
--- NOTE | 2024-05-19 14:40 | WOUNDNOTE ---
NAN RN NOTE: Patient admitted with sepsis, see chart for complete medical history. Asked to see L leg for healed surgical site. Scar visible, scant old drainage on old dressing from 3 days ago. No open ulcer upon probing with q tip, applied silicone
foam. L distal leg very dry and scaly, applied Vaseline and ordered mineral oil. With assist from nurse turned patient, able to do most on own. Sacrum and heels are intact. Will confirm the above with hospitalist and sign off.
--- NOTE | 2024-05-19 16:29 | PTCARENOTE ---
Pt OOB to chair and then ambulated to BR to void and perform self hygiene. Pt continues to be incontinent of loose brown BM - pericare and brief provided. Transfer report called to 'Stef MCKEON' on 3W. Pt transferred at 1620 via WC w/ personal
belongings to Rm [id number]. No changes noted or new complaints received prior to transfer.
--- NOTE | 2024-05-19 17:28 | PTCARENOTE ---
received pt from ICU approx 1630, oriented to room, VSS obtained, assessment complete, AOx3. Pt in EZ chair, resting comfortably, call foss within reach.
[2024-05-19] MEDS: LOVENOX 40 MG SC (18:21)
[2024-05-19] MEDS: DESENEX/MITRAZOL/ZEASORB TOPICAL (21:07)
[2024-05-19] MEDS: MIRAPEX, GENERIC 3 MG PO (21:13)
[2024-05-19] MEDS: EFFEXOR XR 75 MG PO (21:15)
[2024-05-19] MEDS: NEURONTIN 300 MG PO (21:15)
[2024-05-19] MEDS: EFFEXOR XR 150 MG PO (21:16)
[2024-05-20 03:35] VITALS: BP 109/61
[2024-05-20 04:06] LABS: Hematocrit 27.6 % (37.0-47.0); Hemoglobin 8.6 g/dL (12.0-16.0); Mean Corp Hgb Conc. 31.2 g/dL (33.0-37.0); Mean Corpuscular Hgb 20.6 pg (27.0-31.0); Mean Corpuscular Volume 66.2 fL (81.0-99.0); Mean Platelet Volume 9.2 fL (7.4-10.4); Platelet Count 303 10^3/uL (130-400); Red Blood Cell Count 4.17 10^6/uL (4.20-5.40); Red Cell Dist. Width 20.4 % (11.5-14.5); White Blood Cell Count 13.9 10^3/uL (4.8-10.8)
[2024-05-20 04:11] LABS: ALT (SGPT) 45 U/L (0-35); AST (SGOT) 106 U/L (14-36); Albumin 2.8 g/dl (3.5-5.0); Alkaline Phosphatase 92 U/L (38-126); Blood Urea Nitrogen 39 mg/dl (7-17); Calcium 8.3 mg/dl (8.4-10.2); Carbon Dioxide 23 mmol/L (22-30); Chloride 105 mmol/L (98-107); Estimated Creatinine Clearance 74 ml/min; Magnesium 2.4 mg/dl (1.6-2.3); Potassium 4.7 mmol/L (3.5-5.1); Sodium 139 mmol/L (135-145); Total Protein 5.7 g/dl (6.3-8.2); eGFR > 60.00
[2024-05-20 04:23] LABS: Glucose 99 mg/dl (70-99); Total Bilirubin 0.5 mg/dl (0.2-1.3)
[2024-05-20 05:29] VITALS: BMI 42.5
[2024-05-20] MEDS: STERILE WATER FOR INJECTION 20 ML IV ×3 (05:38→21:20)
[2024-05-20] MEDS: MERREM 1000 MG IV ×3 (05:39→21:21)
[2024-05-20 07:55] VITALS: BP 124/59
[2024-05-20] MEDS: FLEXERIL 10 MG PO ×3 (08:09→21:18)
[2024-05-20] MEDS: MIRAPEX, GENERIC 1.5 MG PO ×3 (08:09→21:19)
[2024-05-20] MEDS: ASPIR LOW (ENTERIC COATED) 81 MG PO (08:09)
[2024-05-20] MEDS: HYDROPHOR 1 APPLIC TOPICAL (08:10)
--- NOTE | 2024-05-20 08:30 | PHA.VAN.FU ---
Addendum entered and electronically signed by Doris López RPH 05/20/24 14:06:
Note: level today is available as a scanned in report from [facility] as internal vancomycin reagent
Original Note:
Vancomycin Assessment / Plan
- Assessment
Renal Function: Stable
WBC's are: Trending Down
In the past 24 hrs, patient has been: Afebrile
Concomitant Antimicrobials: meropenem
- Assessment - Therapeutic Drug Monitoring
Random Level: 12.6 - drawn ~21.5H after previous dose of 1250mg
- Dosing Plan
Dosing by Level: Re-dose today (Vanc 1250mg)
Dosing Comments: received dose today at 05/20 08:50
- Monitoring Plan
Random Level: 05/21 0600
Monitoring Comments: Currently, estimated CrCl does not appear to match Vanc clearance
- Follow Up
Pharmacy will continue to follow.
Vancomycin Follow UP
- -
Patient Age: 73
Patient Sex: Female
Vancomycin Day #: 4
Indication: Bone And Joint
Requesting Provider: Eulalio Cronin
Pertinent Antimicrobial Allergies:
penicillins - trouble breathing
cephalosporins - unknown
sulfonamide abx - rash
Height / Weight:
Height 5 ft
Actual Weight 98.7 kg
Pertinent Past Medical History: BMI ~42.5
- Vital Signs / Lab Results
Temp Pulse Resp BP Pulse Ox
97.8 F 72 24 124/59 94
05/20/24 07:55 05/20/24 07:55 05/20/24 07:55 05/20/24 07:55 05/20/24 07:55
Lab Results - Hematology
05/17/24 05/18/24 05/19/24
14:10 05:23 04:29
WBC 34.8 H 21.4 H 16.7 H
05/20/24
03:42
WBC 13.9 H
Lab Results - Chemistry
05/17/24 05/17/24 05/18/24
14:10 23:37 05:23
BUN 42 H 47 H 44 H
Creatinine 2.1 H 1.3 H 1.0
Estimated Creat Clear 40 52
Albumin 3.9 2.5 L
05/19/24 05/20/24
04:29 03:42
BUN 41 H 39 H
Creatinine 0.7 0.7
Estimated Creat Clear 74 74
Albumin 2.3 L 2.8 L
05/17/24 05/17/24 05/17/24
14:10 14:10 17:45
Lactic Acid 3.4 H Cancelled 3.1 H
05/17/24 05/18/24
22:58 05:23
Lactic Acid 2.5 H 1.6
Microbiology Results
05/17/24 14:10 Blood Culture - Preliminary
Blood/Venous No Growth in 48 hours- Final report to follow
05/17/24 14:10 Blood Culture - Preliminary
Blood/Venous No Growth in 48 hours- Final report to follow
05/18/24 09:53 Salmonella/Shigella Culture - Preliminary
Feces/Stool Culture in Progress
Campylobacter Culture - Preliminary
Culture in Progress
Shiga Toxin Test - Final
No E. coli Shiga Toxin 1 or 2 detected.
05/18/24 09:53 C. difficile GDH Antigen & Toxins - Final
Feces/Stool Negative for toxigenic C.difficile
Therapeutic Drug Monitoring
Random Vancomycin Cancelled 05/20/24 03:42
[2024-05-20] MEDS: VANCOCIN 275 MG IV (08:50)
[2024-05-20] MEDS: DESENEX/MITRAZOL/ZEASORB 1 APPLIC TOPICAL ×2 (08:51→21:18)
[2024-05-20 11:13] VITALS: BP 113/61
[2024-05-20 15:38] VITALS: BP 129/56
--- NOTE | 2024-05-20 15:50 | W.PN.ID1 ---
Date of Service
Date of Service: May 20, 2024
Today's Communication
Continue antibiotics. See below�
Assessment / Plan
Clinical sepsis
Fever
Leukocytosis
SHANT
Lactic acidosis
Left lower extremity erythema; suspected cellulitis
Transaminitis
Hx MRSA
Hx infected orthopedic hardware left lower extremity; on chronic suppression
Multiple antibiotic allergies, including PCN, Ceph, sulfa
HTN
Restless leg syndrome
Hx breast CA (s/p lumpectomy, XRT)
Anxiety/depression
Recommendations:
Cultures negative.
Continue meropenem (d#4), but will discontinue further vancomycin as no resistant organisms recovered.
Improvement in leukocytosis noted.
Monitor white count and temperature curve.
Monitor pending cultures (no growth to date.)
Local care to left lower extremity wound.
����������������������������������������������������������
Chief Complaint
-: Leukocytosis and Clinical Sepsis
Subjective / Review of Systems
Patient seen and examined. reports some ongoing confusion. Patient currently denies any complaints.
Review of Systems: No Fever and No Chills
Vital Signs / Physical Exam
Vital Signs
Vital Signs
Temp Pulse Resp BP Pulse Ox
98.4 F 73 16 129/56 93
05/20/24 15:38 05/20/24 15:38 05/20/24 15:38 05/20/24 15:38 05/20/24 15:38
Physical Exam
Constitutional: No Acute Distress, Comfortable, Non-toxic and Obese
Eyes: Sclera Anicteric
Cardiovascular: S1/S2; Negative S3/S4
Pulmonary: Non Labored; Negative Wheezes or Rales
Gastrointestinal: Soft and Non Tender
Neurological: Awake and Alert
Psychological: Confused
Objective Data
Lab Data
Lab Results
05/20/24 03:42
05/20/24 03:42
PT 16.8 Sec (11.4-14.6) H 05/17/24 23:37
INR 1.38 05/17/24 23:37
APTT 37.7 Sec (23.4-35.0) H 05/17/24 23:37
Estimated Creat Clear 74 ml/min 05/20/24 03:42
Lactic Acid 1.6 mmol/L (0.7-2.0) 05/18/24 05:23
Total Bilirubin 0.5 mg/dl (0.2-1.3) 05/20/24 03:42
AST 106 U/L (14-36) H 05/20/24 03:42
ALT 45 U/L (0-35) H 05/20/24 03:42
Alkaline Phosphatase 92 U/L (38-126) 05/20/24 03:42
Most recent labs reviewed.
Micro Results:
05/17/24 14:10 Blood Culture - Preliminary
Blood/Venous No Growth in 72 hours- Final report to follow
05/17/24 14:10 Blood Culture - Preliminary
Blood/Venous No Growth in 72 hours- Final report to follow
05/18/24 09:53 Salmonella/Shigella Culture - Final
Feces/Stool No Salmonella, Shigella, Aeromonas or Plesiomonas species
isolated.
Campylobacter Culture - Final
No Campylobacter species isolated.
Shiga Toxin Test - Final
No E. coli Shiga Toxin 1 or 2 detected.
05/18/24 09:53 C. difficile GDH Antigen & Toxins - Final
Feces/Stool Negative for toxigenic C.difficile
05/17/24 14:13 Influenza Types A & B (JEREMIAH) - Final
Nasal Swab Negative for Influenza A & B, NAAT
Negative results must be combined with clinical observations
and patient history.
Nucleic Acid Amplification test (NAAT)performed on the
[employer] platform.
Imaging:
05/17/2024 CT left lower extremity without contrast: Total knee prosthesis hardware is partially visualized without overt complication. No acute fracture or dislocation. Mild to moderate degenerative changes. No overt osseous erosions. There is
moderate diffuse subcutaneous edema throughout the lower extremity. No loculated fluid collections noted. Please see full dictation for additional detail.
05/17/2024 CXR (portable): No convincing focal infiltrates. No significant pleural effusions. No visualized pneumothorax noted. Please see full dictation for additional detail.
--- NOTE | 2024-05-20 16:52 | W.PN.HOSP.TC ---
Today's Communication/Plan
-
Continue IV Merrem
Continue to follow cultures
Assessment / Plan
Assessment / Plan
Physical Exam
General: Not in Acute Distress
HEENT: Normocephalic
Respiratory: Clear to Auscultation Bilaterally. ON ROOM AIR NOW.
Cardiac: S1/S2 Tachy
GI: Soft, Non Tender, Non Distended and Normal Bowel Sounds
Musculoskeletal: No Cyanosis and No Edema
Skin: left lower extremity erythema flaking of skin, wound bandage in place clean dry intact
Neuro: Nonfocal/grossly intact
Assessment/Plan
73 y/o female with bilaterally TKA Restless Leg Syndrome (on high dose Mirapex) was here earlier in the year for sepsis concern for periprosthetic infection abscess transferred to [facility] care, here with septic shock
possibly due to LLE sever cellulitis (same leg).
#Septic shock (fever, tachycardia, leukocytosis, tachypnea, hypotension) possibly d/t cellulitis vs periprosthetic infection of left lower extremity
#Left Lower ext wound
#History of MRSA
-Initially admitted to ICU, now on floors. Briefly on Levophed since weaned off.
-IV fluids completed tolerating diet SHANT resolved weaned off pressor as above
-Blood cultures NGTD
-Chest x-ray appreciated no acute abn's
-Urinalysis unremarkable
-CT LLE appreciated appreciated cellulitis
-Monitor I's and O's
-ID consult appreciated cont meropenem. Stop Vancomycin as no resistant organisms.
-Stripper Preliminary eval appreciated
-wound care
# Acute kidney injury - RESOLVED - suspected secondary to sepsis
# Hyperkalemia secondary to hypovolemia/lisinopril
-Temporized w/ bicarbonate given Calcium gluconate insulin/dextrose in ED
-Hyperkalemia SHANT since resolved
# Nonischemic myocardial injury d/t severe sepsis/shock
-intial Troponin 0.420 since trended down
-EKG appreciated NSR T wave amplitudes likely increased d/t hyperkalemia as above (hyperkalemia since resolved)
-Chest pain free
Breast cancer status post lumpectomy/radiation
Melanoma status post incision
History of left total knee replacement in 06/04 with periprosthetic fracture status post revision in 09/05 and again revision at [facility] with placement of new sumeet in October
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
History of right total knee replacement
History of gastric bypass
Chronic microcytic anemia
-Likely exacerbated by severe infection as above
-monitor for now, H&H stable.
-checked B12 (417) Folate (15.7) Iron studies show low iron and low % iron saturation
-Will need to decide when to start iron given patient's active infection which is being treated with antibiotics (concern regarding iron making infection worse)
Essential hypertension
-Hold lisinopril d/t shock hyperkalemia shant as above
-monitor and adjust antihypertensive regimen as necessary.
Peripheral neuropathy
Anxiety/depression
-Continue venlafaxine
Restless leg syndrome
-resume pramipexole reduced dose d/t recent SHANT 1.5 mg in AM and 3mg at bedtime (prescribed TID but patient reports she takes 3mg BID), could consider switch to 4.5mg bedtime depending on clinical progress/response
-resume gabapentin reduced dosage d/t recent SHANT, 300 mg HS (home dose 900 mg HS)
Obesity
Obstructive sleep apnea
-Continue home CPAP if able
Full code
DVT prophylaxis-heparin
Regular diet
On May 19, 2024, I spoke with both patient and her Frank inside patient's room. All questions and concerns were answered to satisfaction.
Anticipated Discharge: > 48 hours
Subjective/Interval History
-
Date of Service: May 20, 2024
Patient was seen and examined. She reports no new symptoms or complaints.
Objective Data
-
Vital Signs:
Vital Signs
Temp Pulse Resp BP Pulse Ox
98.4 F 73 16 129/56 93
05/20/24 15:38 05/20/24 15:38 05/20/24 15:38 05/20/24 15:38 05/20/24 15:38
I&O
05/19/24 05/20/24 05/21/24
06:59 06:59 06:59
Intake Total 2697.5 / 2697.5 240 / 240 840 / 840
Output Total 930 / 930 100 / 100
Balance 1767.5 / 1767.5 140 / 140 840 / 840
[2024-05-20] MEDS: LOVENOX 40 MG SC (17:46)
[2024-05-20 19:00] VITALS: BP 131/70
[2024-05-20] MEDS: NEURONTIN 300 MG PO (21:19)
[2024-05-20] MEDS: EFFEXOR XR 150 MG PO (21:20)
[2024-05-20] MEDS: EFFEXOR XR 75 MG PO (21:20)
[2024-05-20 23:00] VITALS: BP 128/73
[2024-05-21] MEDS: MERREM 1000 MG IV ×2 (05:33→13:17)
[2024-05-21] MEDS: STERILE WATER FOR INJECTION 20 ML IV ×2 (05:33→13:17)
[2024-05-21 05:36] LABS: Hematocrit 25.8 % (37.0-47.0); Mean Corpuscular Hgb 20.2 pg (27.0-31.0); Mean Platelet Volume 9.6 fL (7.4-10.4); Platelet Count 323 10^3/uL (130-400); Red Blood Cell Count 3.97 10^6/uL (4.20-5.40); Red Cell Dist. Width 20.7 % (11.5-14.5); White Blood Cell Count 11.5 10^3/uL (4.8-10.8)
[2024-05-21 05:51] VITALS: BMI 42.3
[2024-05-21 06:40] LABS: ALT (SGPT) 47 U/L (0-35); AST (SGOT) 71 U/L (14-36); Albumin 2.9 g/dl (3.5-5.0); Alkaline Phosphatase 88 U/L (38-126); Blood Urea Nitrogen 30 mg/dl (7-17); Calcium 8.3 mg/dl (8.4-10.2); Carbon Dioxide 25 mmol/L (22-30); Chloride 106 mmol/L (98-107); Estimated Creatinine Clearance 86 ml/min; Glucose 89 mg/dl (70-99); Magnesium 2.1 mg/dl (1.6-2.3); Potassium 4.7 mmol/L (3.5-5.1); Sodium 138 mmol/L (135-145); Total Bilirubin 0.4 mg/dl (0.2-1.3); Total Protein 5.8 g/dl (6.3-8.2); eGFR > 60.00
[2024-05-21 07:25] VITALS: BP 109/67
[2024-05-21] MEDS: ASPIR LOW (ENTERIC COATED) 81 MG PO (08:59)
[2024-05-21] MEDS: MIRAPEX, GENERIC 1.5 MG PO ×3 (09:00→21:22)
[2024-05-21] MEDS: HYDROPHOR 1 APPLIC TOPICAL (09:00)
[2024-05-21] MEDS: FLEXERIL 10 MG PO ×3 (09:00→21:22)
[2024-05-21] MEDS: DESENEX/MITRAZOL/ZEASORB 1 APPLIC TOPICAL ×2 (09:01→21:24)
[2024-05-21 11:42] VITALS: BP 145/65
--- NOTE | 2024-05-21 15:16 | W.PN.ID1 ---
Date of Service
Date of Service: May 21, 2024
Today's Communication
Continue antibiotics.
Assessment / Plan
Clinical sepsis
Fever
Leukocytosis
SHANT
Lactic acidosis
Left lower extremity erythema; suspected cellulitis
Transaminitis
Hx MRSA
Hx infected orthopedic hardware left lower extremity; on chronic suppression
Multiple antibiotic allergies, including PCN, Ceph, sulfa
HTN
Restless leg syndrome
Hx breast CA (s/p lumpectomy, XRT)
Anxiety/depression
Recommendations:
Cultures negative.
Continue meropenem (d#5)
Ongoing improvement in leukocytosis noted.
Monitor white count and temperature curve.
Monitor pending cultures (no growth to date.)
Local care to left lower extremity wound.
����������������������������������������������������������
Chief Complaint
-: Leukocytosis and Clinical Sepsis
Subjective / Review of Systems
Review of Systems: No Fever and No Chills
Vital Signs / Physical Exam
Vital Signs
Vital Signs
Temp Pulse Resp BP Pulse Ox
98.5 F 88 17 145/65 97
05/21/24 11:42 05/21/24 11:42 05/21/24 11:42 05/21/24 11:42 05/21/24 11:42
Physical Exam
Constitutional: No Acute Distress, Comfortable, Non-toxic and Obese
Eyes: Sclera Anicteric
Cardiovascular: S1/S2; Negative S3/S4
Pulmonary: Non Labored; Negative Wheezes or Rales
Gastrointestinal: Soft and Non Tender
Neurological: Awake and Alert
Psychological: Confused
Objective Data
Lab Data
Lab Results
05/21/24 05:03
05/21/24 05:03
PT 16.8 Sec (11.4-14.6) H 05/17/24 23:37
INR 1.38 05/17/24 23:37
APTT 37.7 Sec (23.4-35.0) H 05/17/24 23:37
Estimated Creat Clear 86 ml/min 05/21/24 05:03
Lactic Acid 1.6 mmol/L (0.7-2.0) 05/18/24 05:23
Total Bilirubin 0.4 mg/dl (0.2-1.3) 05/21/24 05:03
AST 71 U/L (14-36) H 05/21/24 05:03
ALT 47 U/L (0-35) H 05/21/24 05:03
Alkaline Phosphatase 88 U/L (38-126) 05/21/24 05:03
Most recent labs reviewed.
Micro Results:
05/17/24 14:10 Blood Culture - Preliminary
Blood/Venous No Growth in 4 days- Final report to follow
05/17/24 14:10 Blood Culture - Preliminary
Blood/Venous No Growth in 4 days- Final report to follow
05/18/24 09:53 Salmonella/Shigella Culture - Final
Feces/Stool No Salmonella, Shigella, Aeromonas or Plesiomonas species
isolated.
Campylobacter Culture - Final
No Campylobacter species isolated.
Shiga Toxin Test - Final
No E. coli Shiga Toxin 1 or 2 detected.
05/18/24 09:53 C. difficile GDH Antigen & Toxins - Final
Feces/Stool Negative for toxigenic C.difficile
05/17/24 14:13 Influenza Types A & B (JEREMIAH) - Final
Nasal Swab Negative for Influenza A & B, NAAT
Negative results must be combined with clinical observations
and patient history.
Nucleic Acid Amplification test (NAAT)performed on the
[employer] platform.
Imaging:
05/17/2024 CT left lower extremity without contrast: Total knee prosthesis hardware is partially visualized without overt complication. No acute fracture or dislocation. Mild to moderate degenerative changes. No overt osseous erosions. There is
moderate diffuse subcutaneous edema throughout the lower extremity. No loculated fluid collections noted. Please see full dictation for additional detail.
05/17/2024 CXR (portable): No convincing focal infiltrates. No significant pleural effusions. No visualized pneumothorax noted. Please see full dictation for additional detail.
[2024-05-21 15:35] VITALS: BP 145/66
--- NOTE | 2024-05-21 16:14 | CM ---
Reviewed chart, will review therapy notes/progress and indicate advisement from medical staff for post acute care.
Plan: Case management will continue to follow and assist with discharge planning. Home with VN vrs. SNF.
[2024-05-21 16:42] VITALS: BP 110/59; PULSE 97; O2SAT 97
[2024-05-21] MEDS: LOVENOX 40 MG SC (17:23)
--- NOTE | 2024-05-21 18:13 | W.PN.HOSP.TC ---
Today's Communication/Plan
-
Continue Merrem as per ID while monitoring temperature and WBC count
Assessment / Plan
Assessment / Plan
Physical Exam
General: Not in Acute Distress
HEENT: Normocephalic
Respiratory: Clear to Auscultation Bilaterally. ON ROOM AIR NOW.
Cardiac: S1/S2 Tachy
GI: Soft, Non Tender, Non Distended and Normal Bowel Sounds
Musculoskeletal: No Cyanosis and No Edema
Skin: left lower extremity erythema flaking of skin, wound bandage in place clean dry intact
Neuro: Nonfocal/grossly intact
Assessment/Plan
73 y/o female with bilaterally TKA Restless Leg Syndrome (on high dose Mirapex) was here earlier in the year for sepsis concern for periprosthetic infection abscess transferred to [facility] care, here with septic shock
possibly due to LLE sever cellulitis (same leg).
#Septic shock (fever, tachycardia, leukocytosis, tachypnea, hypotension) possibly d/t cellulitis vs periprosthetic infection of left lower extremity
#Left Lower ext wound
#History of MRSA
-Initially admitted to ICU, now on floors. Briefly on Levophed since weaned off.
-IV fluids completed tolerating diet SHANT resolved weaned off pressor as above
-Blood cultures NGTD
-Chest x-ray appreciated no acute abn's
-Urinalysis unremarkable
-CT LLE appreciated appreciated cellulitis
-Monitor I's and O's
-ID consult appreciated continue Meropenem. Stop Vancomycin as no resistant organisms.
-Accounting Software Specialist eval appreciated
-wound care
# Acute kidney injury - RESOLVED - suspected secondary to sepsis
# Hyperkalemia secondary to hypovolemia/lisinopril - RESOLVED
-Temporized w/ bicarbonate given Calcium gluconate insulin/dextrose in ED
-Hyperkalemia SHANT since resolved
# Nonischemic myocardial injury d/t severe sepsis/shock
-initial Troponin 0.420 since trended down
-EKG appreciated NSR T wave amplitudes likely increased d/t hyperkalemia as above (hyperkalemia since resolved)
-Chest pain free
Breast cancer status post lumpectomy/radiation
Melanoma status post incision
History of left total knee replacement in 06/04 with periprosthetic fracture status post revision in 09/05 and again revision at [facility] with placement of new sumeet in October
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
History of right total knee replacement
History of gastric bypass
Chronic microcytic anemia
-Likely exacerbated by severe infection as above
-monitor for now, H&H stable.
-checked B12 (417) Folate (15.7) Iron studies show low iron and low % iron saturation
-Will need to decide when to start iron given patient's active infection which is being treated with antibiotics (concern regarding iron making infection worse)
Essential hypertension
-Hold lisinopril d/t shock hyperkalemia shant as above
-monitor and adjust antihypertensive regimen as necessary.
Peripheral neuropathy
Anxiety/depression
-Continue venlafaxine
Restless leg syndrome
-resume pramipexole reduced dose d/t recent SHANT 1.5 mg in AM and 3mg at bedtime (prescribed TID but patient reports she takes 3mg BID), could consider switch to 4.5mg bedtime depending on clinical progress/response
-resume gabapentin reduced dosage d/t recent SHANT, 300 mg HS (home dose 900 mg HS)
Obesity
Obstructive sleep apnea
-Continue home CPAP if able
Full code
DVT prophylaxis-heparin
Regular diet
On May 19, 2024, I spoke with both patient and her Frank inside patient's room. All questions and concerns were answered to satisfaction.
Anticipated Discharge: 24 - 48 hours
Subjective/Interval History
-
Date of Service: May 21, 2024
Patient was seen and examined. She denied any new symptoms or complaints.
Objective Data
-
Labs:
Laboratory Results
05/21/24
05:03
Sodium 138
Potassium 4.7
Chloride 106
Carbon Dioxide 25
BUN 30 H
Creatinine 0.5 L
Glucose 89
Calcium 8.3 L
Total Bilirubin 0.4
AST 71 H
ALT 47 H
Alkaline Phosphatase 88
Vital Signs:
Vital Signs
Temp Pulse Resp BP Pulse Ox
98.5 F 102 18 145/66 91
05/21/24 15:35 05/21/24 15:35 05/21/24 15:35 05/21/24 15:35 05/21/24 15:35
I&O
05/20/24 05/21/24 05/22/24
06:59 06:59 06:59
Intake Total 240 / 240 1440 / 1440
Output Total 100 / 100
Balance 140 / 140 1440 / 1440
[2024-05-21 19:00] VITALS: BP 98/53
--- NOTE | 2024-05-21 20:49 | VATNOTE ---
Called by event staff member, pt. c/o pain around Rt. Picc. No cord or edema noted. Recommend warm compress and US to r/o DVT. chief gauger aware, will follow.
--- NOTE | 2024-05-21 20:56 | PTCARENOTE ---
Pt complaining of pain around her R. arm PICC. This RN looked for blood return and flushed both lumens. Swelling and redness not noticed. IV team made aware. IV team assessed the line and suggested getting order for DVT workup. This RN continued to
administer abx through PICC line with no complications. EXECUTIVE COMPENSATION ANALYST made aware and order for US obtained and to take place during day shift. Pt educated on s/s of DVT. Will continue to monitor, call foss in reach.
--- NOTE | 2024-05-21 21:09 | W.PN.UPDATE ---
Update Note
Progress Note Update
Patient complained of RT arm pain, around PICC line. PICC removed by IV team and redness was noted around the PICC area, pulse is intact. RT arm US ordered.
[2024-05-21] MEDS: EFFEXOR XR 75 MG PO (21:22)
[2024-05-21] MEDS: NEURONTIN 300 MG PO (21:22)
[2024-05-21] MEDS: EFFEXOR XR 150 MG PO (21:22)
[2024-05-21] MEDS: STERILE WATER FOR INJECTION 10 ML IV (21:23)
[2024-05-21] MEDS: MERREM 500 MG IV (21:23)
[2024-05-21 23:00] VITALS: BP 129/69
[2024-05-22] MEDS: STERILE WATER FOR INJECTION 10 ML IV ×4 (02:16→20:58)
[2024-05-22] MEDS: MERREM 500 MG IV ×4 (02:16→20:58)
[2024-05-22 03:38] VITALS: BP 110/61
--- NOTE | 2024-05-22 05:36 | VATNOTE ---
AT TIME OF AM LAB DRAWS,0530, PT REPORTS MINIMAL TO NO DISCOMFORT AT PICC SITE REPORTED LAST NIGHT.
[2024-05-22 05:50] LABS: Hematocrit 25.5 % (37.0-47.0); Hemoglobin 7.9 g/dL (12.0-16.0); Mean Corpuscular Hgb 20.1 pg (27.0-31.0); Mean Corpuscular Volume 64.7 fL (81.0-99.0); Mean Platelet Volume 9.5 fL (7.4-10.4); Platelet Count 333 10^3/uL (130-400); Red Blood Cell Count 3.94 10^6/uL (4.20-5.40); Red Cell Dist. Width 20.6 % (11.5-14.5); White Blood Cell Count 11.1 10^3/uL (4.8-10.8)
[2024-05-22 06:28] LABS: ALT (SGPT) 44 U/L (0-35); AST (SGOT) 52 U/L (14-36); Albumin 2.8 g/dl (3.5-5.0); Alkaline Phosphatase 78 U/L (38-126); Blood Urea Nitrogen 21 mg/dl (7-17); Calcium 8.3 mg/dl (8.4-10.2); Carbon Dioxide 26 mmol/L (22-30); Chloride 105 mmol/L (98-107); Estimated Creatinine Clearance 86 ml/min; Glucose 108 mg/dl (70-99); Potassium 4.5 mmol/L (3.5-5.1); Sodium 139 mmol/L (135-145); Total Bilirubin 0.2 mg/dl (0.2-1.3); Total Protein 5.8 g/dl (6.3-8.2); eGFR > 60.00
[2024-05-22] MEDS: ASPIR LOW (ENTERIC COATED) 81 MG PO (07:39)
[2024-05-22] MEDS: MIRAPEX, GENERIC 1.5 MG PO ×3 (07:39→21:00)
[2024-05-22] MEDS: FLEXERIL 10 MG PO ×3 (07:39→21:01)
[2024-05-22] MEDS: DESENEX/MITRAZOL/ZEASORB 1 APPLIC TOPICAL ×2 (07:44→20:59)
[2024-05-22 08:18] VITALS: BP 127/60
[2024-05-22] MEDS: HYDROPHOR 1 APPLIC TOPICAL (09:21)
[2024-05-22 11:49] VITALS: BP 101/65
[2024-05-22 15:00] VITALS: BP 129/81
--- NOTE | 2024-05-22 16:56 | W.PN.ID1 ---
Date of Service
Date of Service: May 22, 2024
Today's Communication
Continue with an additional day of antibiotics then discontinue.
Assessment / Plan
Clinical sepsis
Fever
Leukocytosis
SHANT
Lactic acidosis
Left lower extremity erythema; suspected cellulitis
Transaminitis
Hx MRSA
Hx infected orthopedic hardware left lower extremity; on chronic suppression
Multiple antibiotic allergies, including PCN, Ceph, sulfa
HTN
Restless leg syndrome
Hx breast CA (s/p lumpectomy, XRT)
Anxiety/depression
Recommendations:
Patient overall markedly clinically improved. Cultures have remained negative.
Ongoing improvement in leukocytosis noted.
Continue meropenem (d#6) to complete 7 days therapy. Thereafter, observe off antibiotics.
Monitor white count and temperature curve.
Local care to left lower extremity wound.
����������������������������������������������������������
Chief Complaint
-: Leukocytosis and Clinical Sepsis
Subjective / Review of Systems
Patient seen and examined. at the bedside and reports that she overall appears much improved today. Patient currently denies any fevers or chills. She denies any pain.
Vital Signs / Physical Exam
Vital Signs
Vital Signs
Temp Pulse Resp BP Pulse Ox
98.4 F 98 16 101/65 96
05/22/24 11:49 05/22/24 11:49 05/22/24 11:49 05/22/24 11:49 05/22/24 14:20
Physical Exam
Constitutional: No Acute Distress, Comfortable, Non-toxic and Obese
Eyes: Sclera Anicteric
Cardiovascular: S1/S2; Negative S3/S4
Pulmonary: Non Labored; Negative Wheezes or Rales
Gastrointestinal: Soft and Non Tender
Extremities: Edema and Erythema (Minimal lower extremity erythema)
Wound: Other (Left anterior tibial region; Dressed)
Neurological: Awake and Alert
Psychological: Confused
Objective Data
Lab Data
Lab Results
05/22/24 05:23
05/22/24 05:23
PT 16.8 Sec (11.4-14.6) H 05/17/24 23:37
INR 1.38 05/17/24 23:37
APTT 37.7 Sec (23.4-35.0) H 05/17/24 23:37
Estimated Creat Clear 86 ml/min 05/22/24 05:23
Lactic Acid 1.6 mmol/L (0.7-2.0) 05/18/24 05:23
Total Bilirubin 0.2 mg/dl (0.2-1.3) 05/22/24 05:23
AST 52 U/L (14-36) H 05/22/24 05:23
ALT 44 U/L (0-35) H 05/22/24 05:23
Alkaline Phosphatase 78 U/L (38-126) 05/22/24 05:23
Most recent labs reviewed.
Micro Results:
05/17/24 14:10 Blood Culture - Final
Blood/Venous No Growth - Final Report
05/17/24 14:10 Blood Culture - Final
Blood/Venous No Growth - Final Report
05/18/24 09:53 Salmonella/Shigella Culture - Final
Feces/Stool No Salmonella, Shigella, Aeromonas or Plesiomonas species
isolated.
Campylobacter Culture - Final
No Campylobacter species isolated.
Shiga Toxin Test - Final
No E. coli Shiga Toxin 1 or 2 detected.
05/18/24 09:53 C. difficile GDH Antigen & Toxins - Final
Feces/Stool Negative for toxigenic C.difficile
05/17/24 14:13 Influenza Types A & B (JEREMIAH) - Final
Nasal Swab Negative for Influenza A & B, NAAT
Negative results must be combined with clinical observations
and patient history.
Nucleic Acid Amplification test (NAAT)performed on the
[employer] platform.
Imaging:
05/17/2024 CT left lower extremity without contrast: Total knee prosthesis hardware is partially visualized without overt complication. No acute fracture or dislocation. Mild to moderate degenerative changes. No overt osseous erosions. There is
moderate diffuse subcutaneous edema throughout the lower extremity. No loculated fluid collections noted. Please see full dictation for additional detail.
05/17/2024 CXR (portable): No convincing focal infiltrates. No significant pleural effusions. No visualized pneumothorax noted. Please see full dictation for additional detail.
--- NOTE | 2024-05-22 18:26 | W.PN.HOSP.TC ---
Today's Communication/Plan
-
Continue Merrem
Appreciate ID
Assessment / Plan
Assessment / Plan
Physical Exam
General: Not in Acute Distress
HEENT: Normocephalic
Respiratory: Clear to Auscultation Bilaterally. ON ROOM AIR NOW.
Cardiac: S1/S2 Tachy
GI: Soft, Non Tender, Non Distended and Normal Bowel Sounds
Musculoskeletal: No Cyanosis and No Edema
Skin: left lower extremity erythema flaking of skin, wound bandage in place clean dry intact
Neuro: Nonfocal/grossly intact
Assessment/Plan
73 y/o female with bilaterally TKA Restless Leg Syndrome (on high dose Mirapex) was here earlier in the year for sepsis concern for periprosthetic infection abscess transferred to [facility] care, here with septic shock
possibly due to LLE sever cellulitis (same leg).
#Septic shock (fever, tachycardia, leukocytosis, tachypnea, hypotension) possibly d/t cellulitis vs periprosthetic infection of left lower extremity
#Left Lower ext wound
#History of MRSA
-Initially admitted to ICU, now on floors. Briefly on Levophed since weaned off.
-IV fluids completed tolerating diet SHANT resolved weaned off pressor as above
-Blood cultures NGTD
-Chest x-ray appreciated no acute abn's
-Urinalysis unremarkable
-CT LLE appreciated appreciated cellulitis
-Monitor I's and O's
-ID consult appreciated continue Meropenem -- last day tomorrow. Stop Vancomycin as no resistant organisms.
-Social Group Worker eval appreciated
-wound care
# Acute kidney injury - RESOLVED - suspected secondary to sepsis
# Hyperkalemia secondary to hypovolemia/lisinopril - RESOLVED
-Temporized w/ bicarbonate given Calcium gluconate insulin/dextrose in ED
-Hyperkalemia SHANT since resolved
# Nonischemic myocardial injury d/t severe sepsis/shock
-initial Troponin 0.420 since trended down
-EKG appreciated NSR T wave amplitudes likely increased d/t hyperkalemia as above (hyperkalemia since resolved)
-Chest pain free
Breast cancer status post lumpectomy/radiation
Melanoma status post incision
History of left total knee replacement in 06/04 with periprosthetic fracture status post revision in 09/05 and again revision at [facility] with placement of new sumeet in October
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
History of right total knee replacement
History of gastric bypass
Chronic microcytic anemia
-Likely exacerbated by severe infection as above
-monitor for now, H&H stable.
-checked B12 (417) Folate (15.7) Iron studies show low iron and low % iron saturation
-Will need to decide when to start iron given patient's active infection which is being treated with antibiotics (concern regarding iron making infection worse)
Essential hypertension
-Hold lisinopril d/t shock hyperkalemia shant as above
-monitor and adjust antihypertensive regimen as necessary.
Peripheral neuropathy
Anxiety/depression
-Continue venlafaxine
Restless leg syndrome
-resume pramipexole reduced dose d/t recent SHANT 1.5 mg in AM and 3mg at bedtime (prescribed TID but patient reports she takes 3mg BID), could consider switch to 4.5mg bedtime depending on clinical progress/response
-resume gabapentin reduced dosage d/t recent SHANT, 300 mg HS (home dose 900 mg HS)
Obesity
Obstructive sleep apnea
-Continue home CPAP if able
Full code
DVT prophylaxis-heparin
Regular diet
On May 19, 2024 and May 22, 2024, I spoke with both patient and her Frank inside patient's room. All questions and concerns were answered to satisfaction.
Anticipated Discharge: 24 - 48 hours
Subjective/Interval History
-
Date of Service: May 22, 2024
Patient was seen and examined. She reported no new symptoms or complaints.
Objective Data
-
Labs:
Laboratory Results
05/22/24
05:23
Sodium 139
Potassium 4.5
Chloride 105
Carbon Dioxide 26
BUN 21 H
Creatinine 0.5 L
Glucose 108 H
Calcium 8.3 L
Total Bilirubin 0.2
AST 52 H
ALT 44 H
Alkaline Phosphatase 78
Vital Signs:
Vital Signs
Temp Pulse Resp BP Pulse Ox
98.3 F 103 18 129/81 93
05/22/24 15:00 05/22/24 15:00 05/22/24 15:00 05/22/24 15:00 05/22/24 15:00
I&O
05/21/24 05/22/24 05/23/24
06:59 06:59 06:59
Intake Total 1440 / 1440
Balance 1440 / 1440
[2024-05-22] MEDS: LOVENOX 40 MG SC (18:27)
[2024-05-22 19:37] VITALS: BP 115/57
[2024-05-22] MEDS: EFFEXOR XR 75 MG PO (21:00)
[2024-05-22] MEDS: EFFEXOR XR 150 MG PO (21:00)
[2024-05-22] MEDS: NEURONTIN 300 MG PO (21:01)
[2024-05-22 22:52] VITALS: BP 119/56
--- NOTE | 2024-05-23 00:46 | VATNOTE ---
NOTED RESULTS OF PERIPHERAL VASCULAR US ON RUE DONE 05/22. CONVERSATION WITH PCN WHO WAS AWARE OF RESULT. PROVIDERS TO BE NOTIFIED BY PCN IN AM. IV ABX TO CONTINUE UNTIL 05/23. VAT TO FOLLOW.
--- NOTE | 2024-05-23 02:00 | VATNOTE ---
PERIPHERAL IV SITE ESTABLISHED ORDERED BY LOW ALTITUDE AIR DEFENSE GUNNER. NO ORDER TO D/C PICC AT THIS TIME. PCN TO USE NEW IV SITE TO ADMINISTER ABX/MEDS TONIGHT. VAT TO FOLLOW.
[2024-05-23] MEDS: STERILE WATER FOR INJECTION 10 ML IV ×3 (02:12→15:05)
[2024-05-23] MEDS: MERREM 500 MG IV ×3 (02:13→15:04)
[2024-05-23 03:16] VITALS: BP 135/71
[2024-05-23 07:00] VITALS: BP 136/78
--- NOTE | 2024-05-23 07:47 | VATNOTE ---
Troy text sent to MD regarding results of RUE peripheral ultrasound. Awaiting response from MD for further intervention.
[2024-05-23] MEDS: ASPIR LOW (ENTERIC COATED) 81 MG PO (08:00)
[2024-05-23] MEDS: FLEXERIL 10 MG PO ×2 (08:01→16:24)
[2024-05-23] MEDS: MIRAPEX, GENERIC 1.5 MG PO ×2 (08:03→16:24)
[2024-05-23] MEDS: HYDROPHOR 1 APPLIC TOPICAL (08:03)
[2024-05-23] MEDS: DESENEX/MITRAZOL/ZEASORB 1 APPLIC TOPICAL (08:04)
[2024-05-23 08:20] LABS: Hematocrit 26.9 % (37.0-47.0); Hemoglobin 8.1 g/dL (12.0-16.0); Mean Corp Hgb Conc. 30.1 g/dL (33.0-37.0); Mean Corpuscular Hgb 19.8 pg (27.0-31.0); Mean Corpuscular Volume 65.8 fL (81.0-99.0); Mean Platelet Volume 9.7 fL (7.4-10.4); Platelet Count 397 10^3/uL (130-400); Red Blood Cell Count 4.09 10^6/uL (4.20-5.40); Red Cell Dist. Width 21.1 % (11.5-14.5); White Blood Cell Count 9.1 10^3/uL (4.8-10.8)
--- NOTE | 2024-05-23 08:54 | W.PN.HOSP.TC ---
Today's Communication/Plan
-
Discharge today
Assessment / Plan
Assessment / Plan
Physical Exam
General: Not in Acute Distress
HEENT: Normocephalic
Respiratory: Clear to Auscultation Bilaterally. ON ROOM AIR NOW.
Cardiac: S1/S2 Tachy
GI: Soft, Non Tender, Non Distended and Normal Bowel Sounds
Musculoskeletal: No Cyanosis and No Edema
Skin: left lower extremity erythema, edema in the B/L lower extremities
Neuro: Nonfocal/grossly intact
Assessment/Plan
73 y/o female with bilaterally TKA Restless Leg Syndrome (on high dose Mirapex) was here earlier in the year for sepsis concern for periprosthetic infection abscess transferred to [facility] care, here with septic shock
possibly due to LLE sever cellulitis (same leg).
#Septic shock (fever, tachycardia, leukocytosis, tachypnea, hypotension) possibly d/t cellulitis vs periprosthetic infection of left lower extremity
#Left Lower ext wound
#History of MRSA
-Initially admitted to ICU, now on floors. Briefly on Levophed since weaned off.
-IV fluids completed tolerating diet SHANT resolved weaned off pressor as above
-Blood cultures NGTD
-Chest x-ray appreciated no acute abn's
-Urinalysis unremarkable
-CT LLE appreciated appreciated cellulitis
-Monitor I's and O's
-ID consult appreciated continue Meropenem -- last day today. Vancomycin stopped as no resistant organisms.
-Package Liner nereida appreciated
-Continue local care to left lower extremity wound.
# Acute kidney injury - RESOLVED - suspected secondary to sepsis
# Hyperkalemia secondary to hypovolemia/lisinopril - RESOLVED
-Temporized w/ bicarbonate given Calcium gluconate insulin/dextrose in ED
-Hyperkalemia SHANT since resolved
# Superficial Venous Thrombosis in the Cephalic Vein
-Treat as a superficial thrombophlebitis (symptomatic care with extremity elevation, warm or cool compresses)
# Nonischemic myocardial injury d/t severe sepsis/shock
-initial Troponin 0.420 since trended down
-EKG appreciated NSR T wave amplitudes likely increased d/t hyperkalemia as above (hyperkalemia since resolved)
-Chest pain free
Breast cancer status post lumpectomy/radiation
Melanoma status post incision
History of left total knee replacement in 06/04 with periprosthetic fracture status post revision in 09/05 and again revision at [facility] with placement of new sumeet in October
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
History of right total knee replacement
History of gastric bypass
Chronic microcytic anemia
-Likely exacerbated by severe infection as above
-monitor for now, H&H stable.
-checked B12 (417) Folate (15.7) Iron studies show low iron and low % iron saturation
-Ferrous Sulfate 325 mg Q48H on discharge
Essential hypertension
-Hold lisinopril d/t shock hyperkalemia shant as above
-monitor and adjust antihypertensive regimen as necessary.
Peripheral neuropathy
Anxiety/depression
-Continue venlafaxine
Restless leg syndrome
-Pramipexole reduced dose d/t recent SHANT 1.5 mg in AM and 3mg at bedtime (prescribed TID but patient reports she takes 3mg BID), could consider switch to 4.5mg bedtime depending on clinical progress/response
-Gabapentin reduced dosage d/t recent SHANT, 300 mg HS (on discharge, can resume home dose 900 mg HS)
Obesity
Obstructive sleep apnea
-Continue home CPAP
Full code
DVT prophylaxis-heparin
Regular diet
On May 19, 2024 and May 22, 2024 and May 23, 2024, I spoke with both patient and her Frank inside patient's room. All questions and concerns were answered to satisfaction.
More than 30 minutes spent in discharge including
Final examination of the patient
Summarizing hospital stay
Instructions for continuing care to all relevant caregivers
Preparation of discharge records, prescriptions, and referral forms
Total time spent (in minutes): 41
Anticipated Discharge: Today
Subjective/Interval History
-
Date of Service: May 23, 2024
Patient was seen and examined. She reported her legs were more swollen, left leg was a bit more red. I spoke with infectious physician who noted that patient was sitting with her legs down so expect to have dependent erythema and patient should
raise her legs.
Objective Data
-
Labs:
Laboratory Results
05/23/24
07:45
WBC 9.1
Hgb 8.1 L
Hct 26.9 L
Plt Count 397
Sodium Pending
Potassium Pending
Chloride Pending
Carbon Dioxide Pending
BUN Pending
Creatinine Pending
Glucose Pending
Calcium Pending
Total Bilirubin Pending
AST Pending
ALT Pending
Alkaline Phosphatase Pending
Vital Signs:
Vital Signs
Temp Pulse Resp BP Pulse Ox
98.3 F 116 17 136/78 99
05/23/24 07:00 05/23/24 07:00 05/23/24 07:00 05/23/24 07:00 05/23/24 07:00
I&O
05/22/24 05/23/24 05/24/24
06:59 06:59 06:59
Intake Total 480 / 480
Balance 480 / 480
[2024-05-23 09:39] LABS: ALT (SGPT) 42 U/L (0-35); AST (SGOT) 46 U/L (14-36); Albumin 2.9 g/dl (3.5-5.0); Alkaline Phosphatase 83 U/L (38-126); Blood Urea Nitrogen 17 mg/dl (7-17); Calcium 8.3 mg/dl (8.4-10.2); Carbon Dioxide 26 mmol/L (22-30); Chloride 103 mmol/L (98-107); Estimated Creatinine Clearance 86 ml/min; Glucose 87 mg/dl (70-99); Potassium 4.9 mmol/L (3.5-5.1); Sodium 138 mmol/L (135-145); Total Bilirubin 0.2 mg/dl (0.2-1.3); Total Protein 5.8 g/dl (6.3-8.2); eGFR > 60.00
[2024-05-23 10:08] LABS: Magnesium 1.8 mg/dl (1.6-2.3)
[2024-05-23 11:00] VITALS: BP 95/54
--- NOTE | 2024-05-23 12:19 | W.PN.ID1 ---
Date of Service
Date of Service: May 23, 2024
Today's Communication
Can dc home after 1400 meropenem dose.
Assessment / Plan
Clinical sepsis
Fever
Leukocytosis
SHANT
Lactic acidosis
Left lower extremity erythema; suspected cellulitis
Transaminitis
Hx MRSA
Hx infected orthopedic hardware left lower extremity; on chronic suppression
Multiple antibiotic allergies, including PCN, Ceph, sulfa
HTN
Restless leg syndrome
Hx breast CA (s/p lumpectomy, XRT)
Anxiety/depression
Recommendations:
Patient overall markedly clinically improved. Cultures have remained negative.
Fever and leukocytosis resolved.
Can dc meropenem today (d#7) .
Can dc home from ID standpoint.
Local care to left lower extremity wound.
����������������������������������������������������������
Chief Complaint
-: Leukocytosis and Clinical Sepsis
Subjective / Review of Systems
Continues to feel better. No complaints.
Vital Signs / Physical Exam
Vital Signs
Vital Signs
Temp Pulse Resp BP Pulse Ox
98.6 F 116 18 95/54 98
05/23/24 11:00 05/23/24 11:00 05/23/24 11:00 05/23/24 11:00 05/23/24 11:00
Physical Exam
Constitutional: No Acute Distress and Comfortable
Cardiovascular: Regular Rate and S1/S2
Pulmonary: Clear
Gastrointestinal: Soft, Non Tender and Non Distended
Genito-Urinary: Negative CVA Tenderness
Objective Data
Lab Data
Lab Results
05/23/24 07:45
05/23/24 07:45
PT 16.8 Sec (11.4-14.6) H 05/17/24 23:37
INR 1.38 05/17/24 23:37
APTT 37.7 Sec (23.4-35.0) H 05/17/24 23:37
Estimated Creat Clear 86 ml/min 05/23/24 07:45
Lactic Acid 1.6 mmol/L (0.7-2.0) 05/18/24 05:23
Total Bilirubin 0.2 mg/dl (0.2-1.3) 05/23/24 07:45
AST 46 U/L (14-36) H 05/23/24 07:45
ALT 42 U/L (0-35) H 05/23/24 07:45
Alkaline Phosphatase 83 U/L (38-126) 05/23/24 07:45
Most recent labs reviewed.
Micro Results:
05/17/24 14:10 Blood Culture - Final
Blood/Venous No Growth - Final Report
05/17/24 14:10 Blood Culture - Final
Blood/Venous No Growth - Final Report
05/18/24 09:53 Salmonella/Shigella Culture - Final
Feces/Stool No Salmonella, Shigella, Aeromonas or Plesiomonas species
isolated.
Campylobacter Culture - Final
No Campylobacter species isolated.
Shiga Toxin Test - Final
No E. coli Shiga Toxin 1 or 2 detected.
05/18/24 09:53 C. difficile GDH Antigen & Toxins - Final
Feces/Stool Negative for toxigenic C.difficile
05/17/24 14:13 Influenza Types A & B (JEREMIAH) - Final
Nasal Swab Negative for Influenza A & B, NAAT
Negative results must be combined with clinical observations
and patient history.
Nucleic Acid Amplification test (NAAT)performed on the
Shopography platform.
Imaging:
05/17/2024 CT left lower extremity without contrast: Total knee prosthesis hardware is partially visualized without overt complication. No acute fracture or dislocation. Mild to moderate degenerative changes. No overt osseous erosions. There is
moderate diffuse subcutaneous edema throughout the lower extremity. No loculated fluid collections noted. Please see full dictation for additional detail.
05/17/2024 CXR (portable): No convincing focal infiltrates. No significant pleural effusions. No visualized pneumothorax noted. Please see full dictation for additional detail.
Care Review
Plan reviewed with: Physician (Dr. Taylor)
[2024-05-23 15:09] VITALS: BP 121/59
[2024-05-23 15:15] VITALS: BMI 42.3
--- NOTE | 2024-05-23 16:34 | CM ---
Reviewed chart, patient cleared for discharge per attending note. Placed a call to Angelica in admissions at [facility] who confirmed that patient is on service and they can accept patient back.

Plan: Case management will continue to follow and assist with discharge planning. Home with [facility].
--- NOTE | 2024-05-24 13:35 | CM ---
Late entry
civil engineering project manager received a call from patient's spouse regarding home care services, per patient's spouse they have not heard from [facility], family preservation caseworker reached out to [facility] [phone] to request that they follow up
with patient.
== END 2024-05-23 18:13 | disposition home health service (06) | DRG 559 ==
LOC: 3 WEST ACU 16:31
PROVIDERS: Internal Medicine; Nurse Practitioner Family; ADMITTING PHYSICIAN Hospitalist; ATTENDING PHYSICIAN Hospitalist; CONSULT PHYSICIAN Internal Medicine; CONSULT PHYSICIAN Internal Medicine Infectious Disease; EMERGENCY PHYSICIAN Emergency Medicine; FAMILY PHYSICIAN Family Medicine
DX: T84.54XA Infection and inflammatory reaction due to internal left knee prosthesis, initial encounter (principal); A41.9 Sepsis, unspecified organism; R65.21 Severe sepsis with septic shock; Z68.41 Body mass index [BMI] 40.0-44.9, adult; E87.20 Acidosis, unspecified; I5A Non-ischemic myocardial injury (non-traumatic); L03.116 Cellulitis of left lower limb; N17.8 Other acute kidney failure; D50.9 Iron deficiency anemia, unspecified; E66.01 Morbid (severe) obesity due to excess calories; F32.A Depression, unspecified; G25.81 Restless legs syndrome; I10 Essential (primary) hypertension; E87.5 Hyperkalemia; I80.8 Phlebitis and thrombophlebitis of other sites; Y79.2 Prosthetic and other implants, materials and accessory orthopedic devices associated with adverse incidents; E86.1 Hypovolemia; F41.9 Anxiety disorder, unspecified; G47.33 Obstructive sleep apnea (adult) (pediatric); G62.9 Polyneuropathy, unspecified; K21.9 Gastro-esophageal reflux disease without esophagitis; M79.605 Pain in left leg; R60.0 Localized edema; Z96.653 Presence of artificial knee joint, bilateral; Z79.2 Long term (current) use of antibiotics; Z79.899 Other long term (current) drug therapy; Z86.14 Personal history of Methicillin resistant Staphylococcus aureus infection; Z87.81 Personal history of (healed) traumatic fracture; Z90.710 Acquired absence of both cervix and uterus; Z98.84 Bariatric surgery status; Z85.820 Personal history of malignant melanoma of skin; Z85.3 Personal history of malignant neoplasm of breast; Z92.3 Personal history of irradiation
CPT/HCPCS: 51701; 51702; 71045; 73700; 80048; 80053; 80202; 81003; 81015; 82607; 82728; 82746; 82962; 83540; 83550; 83605; 83735; 84100; 84132; 84443; 84484; 85025; 85027; 85610; 85730; 87040; 87045; 87046; 87324; 87427; 87449; 87502; 87811; 93005; 93970; 93971; 96361; 96365; 96366; 96367; 96375; 97116; 97163; 97167; 97535; 99291; J2185

== ENCOUNTER 2024-09-12 06:53 | Outpatient (RCR) | payer MEDICARE, OTHER, SELFPAY | END 2024-09-12 23:59 | disposition home or self-care (01) | LOC: RPT 06:53 | PROVIDERS: ATTENDING PHYSICIAN Family Medicine | DX: Z47.1 Aftercare following joint replacement surgery (principal); Z96.652 Presence of left artificial knee joint; R26.89 Other abnormalities of gait and mobility; Z73.6 Limitation of activities due to disability | CPT/HCPCS: 97110; 97162 ==

== ENCOUNTER 2024-09-29 08:43 | Outpatient (RCR) | payer MEDICARE, OTHER, SELFPAY | END 2024-10-06 23:59 | disposition home or self-care (01) | LOC: RPT 08:43 | PROVIDERS: ATTENDING PHYSICIAN Family Medicine | DX: Z47.1 Aftercare following joint replacement surgery (principal); Z73.6 Limitation of activities due to disability; R26.89 Other abnormalities of gait and mobility; R20.0 Anesthesia of skin; Z96.652 Presence of left artificial knee joint | CPT/HCPCS: 97110; 97112 ==

== ENCOUNTER 2024-10-17 21:12 | Inpatient (IN) | payer MEDICARE, OTHER, SELFPAY ==
[2024-10-17 16:28] VITALS: BP 109/76
--- NOTE | 2024-10-17 17:00 | ED TECH ---
unable to draw labs in triage.
[2024-10-17 17:45] VITALS: BMI 40.2
--- NOTE | 2024-10-17 17:54 | ED.GENMED ---
History of Present Illness
General
Chief Complaint: Skin Problem
Source: patient and records
Exam Limitations: none
Time Seen by Provider: 10/17/24 17:43
History of Present Illness
History of Present Illness:
74yoF with a history of a left TKA in May 2023 complicated by nonhealing wounds as well as recurrent cellulitis presenting with her for evaluation of left leg redness and pain. Symptoms began worsening about a week ago. She reports
weeping from her lower leg. She is chronically on doxycycline twice daily due to her recurrent infections. She was seen by her mechanical engineering officer today and was sent to the ED for IV antibiotics. She denies any fevers, chills, or other systemic
symptoms. Prior wound culture in March 2024 grew out MRSA only susceptible to gentamicin and vancomycin.
Past History
Past History
ED Past Medical History: Cancer (breast ca - tx'd with radiation & lumpectomy, disease free since last year, Skin CA), HTN, Psychiatric (Depression), Other (Restless leg syndrome,PNA, Sleep apnea, Anemia, ) and Other (Acute Renal Failure)
ED Past Surgical History: Bowel resection (Gastric bypass), Gynecological (Hysterectomy), Orthopedic (Bilateral carpal tunnel , Left and right knee replacement, Repair fracture Left femur, ) and Other (Gastric bypass, Prolapsed rectum repair, )
Social History
Tobacco: Non-smoker
Alcohol: None
Personal:
Living: with family
Family History
Family History: Negative Diabetes, Hypertension or CAD
Phy Exam
General Physical Exam
General Presentation: well appearing and no apparent distress
General age: appears stated age
General Skin: warm and dry
General Habitus: normal
General Mental: alert
ENT Exam
ENT Exam: normocephalic
Pulmonary Exam
Pulmonary Exam: no respiratory distress
Neurological Exam
Neurological Exam: alert
Margie Coma Scale
Eye Opening: Spontaneous
Verbal Response: Oriented
Motor Response: Obeys Commands
GCS Total Score: 15
Skin Exam
Skin Exam: warm/dry and erythema (Circumferential erythema, warmth, and swelling to LLE consistent with cellulitis. No fluctuance, crepitus, or pain out of proportion. )
Psychiatric Exam
Psychiatric Exam: normal mood/affect
Course
Orders/Labs/Results
Orders:
Orders
10/17/24 17:52
Venous Doppler Lwr Ext Left [US Periph Venous LOWER Ext LT] Urgent
Comment:
Reason For Exam: L leg redness/swelling
10/17/24 19:24
Complete Blood Count/With Diff Urgent
Lactic Acid Urgent
10/17/24 19:42
Comprehensive Metabolic Panel Urgent
10/17/24 20:15
Vancomycin [Vancocin] 2,000 mg 0.9% Sodium Chloride 500 ml [Nss] 500 ml IV NOW
10/17/24 20:59
Admit/Transfer Patient As Directed
Co-Sign Provider:
Level of Care: Inpatient admission
Assign to:: Medical/Surgical
Physician / Group: arleth
Diagnosis: cellulitis
Reason for Hospitalization: cellulitis
Expected length of stay greater than two midnights?: Yes
ELOS- Estimated Length of Stay in days: 2
I certify the patient meets the requirements for IP care: Yes
10/17/24 21:00
Code Status As Directed
Resuscitation Status: Full Code
PRN Pain Medication Management As Directed
May give lesser potent ordered pain med per pt: Yes
preference::
Protocol:: Medication orders for pain may be administered in a
manner that supports deferring to patient preference
when the pt is:
- Requesting an ordered lesser potent pain medication.
Least to most potent pain medications are defined
as: acetaminophen < NSAID < tramadol < opioids
(morphine, oxycodone, hydromorphone).
- Requesting a lesser dose of the same medication IF
ORDERED.
- Requesting a less intrusive route of administration
if both routes are prescribed by the provider (PO <
IV).
Abnormal Lab Results
10/17/24 10/17/24
19:24 19:42
RBC 3.61 L 10^6/uL
(4.20-5.40)
Hgb 7.3 L g/dL
(12.0-16.0)
Hct 24.5 L %
(37.0-47.0)
MCV 67.9 L fL
(81.0-99.0)
MCH 20.2 L pg
(27.0-31.0)
MCHC 29.8 L g/dL
(33.0-37.0)
RDW 20.6 H %
(11.5-14.5)
Absolute Monos (auto) 0.7 H 10^3/uL
(0.1-0.6)
Sodium 132 L mmol/L
(135-145)
BUN 29 H mg/dl
(7-17)
Glucose 165 H mg/dl
(70-99)
Calcium 8.2 L mg/dl
(8.4-10.2)
Total Protein 5.7 L g/dl
(6.3-8.2)
Albumin 2.8 L g/dl
(3.5-5.0)
10/17/24 19:24
10/17/24 19:42
Vital Signs
Initial and Last Documented VS:
Initial Vital Signs
Temp Pulse Resp BP Pulse Ox
98.8 F 94 20 109/76 97
10/17/24 16:28 10/17/24 16:28 10/17/24 16:28 10/17/24 16:28 10/17/24 16:28
Last Documented Vital Signs
Temp Pulse Resp BP Pulse Ox
98.8 F 94 20 110/50 97
10/17/24 16:28 10/17/24 16:28 10/17/24 16:28 10/17/24 20:00 10/17/24 20:30
MDM/Problems Addressed
Differential Diagnosis Includes:
74yoF here with L lower leg redness/weeping x 1 week. Hx of recurrent cellulitis since having a TKA in 2022. On chronic doxy. No f/c. VSS. She is well appearing in no distress. There is circumferential erythema/warmth on exam consistent with
cellulitis. No clinical signs of abscess or NSTI.
Initial ED plan: Check CBC, CMP, lactate, and venous duplex. IV vancomycin ordered. She will require admission.
*Critical Care Note
Total Time (30-74mins, 75-104mins- exclusive of procedures): Not Applicable
ED Attending Note
-
Portions of this chart may have been created with voice recognition software.� Occasional wrong word or��sound alike� substitutions may have occurred due to the inherent limitations of voice recognition software.
Discharge Plan
Departure
Patient Disposition: Admit
Date of Disposition: 10/17/24
Time of Disposition: 20:12
Presentation/result/management discussed w/ accepting MD/DO: Hospitalist
Discharge Problem:
Cellulitis of left lower leg
Interventions
Interventions:
*Risk Screen - Suicide Last Done: 10/17/24 17:48
*General Assessment Last Done: 10/17/24 16:28
*Neglect/Abuse Screening Last Done: 10/17/24 17:48
*ED- Fall Risk Assessment Last Done: 10/17/24 17:48
*ED COVID-19 Vaccine History Last Done: 10/17/24 17:48
ED-Skin Assessment Last Done: 10/17/24 19:28
[2024-10-17 19:27] VITALS: BP 107/39
[2024-10-17 19:33] LABS: % Basophils 0.4 % (0-2); % Eosinophils 1.8 % (0-6); % Immature Granulocytes 0.3 % (0-0.5); % Monocytes 8.5 % (1.7-9.3); Absolute Eosinophils 0.1 10^3/uL (0-0.7); Absolute Lymphocytes 2.1 10^3/uL (1.2-3.4); Absolute Monocytes 0.7 10^3/uL (0.1-0.6); Absolute Neutrophils 4.7 10^3/uL (1.4-6.5); Hematocrit 24.5 % (37.0-47.0); Hemoglobin 7.3 g/dL (12.0-16.0); Mean Corp Hgb Conc. 29.8 g/dL (33.0-37.0); Mean Corpuscular Hgb 20.2 pg (27.0-31.0); Mean Corpuscular Volume 67.9 fL (81.0-99.0); Mean Platelet Volume 8.8 fL (7.4-10.4); Nucleated Red Blood Cells % 0 %; Platelet Count 360 10^3/uL (130-400); Red Blood Cell Count 3.61 10^6/uL (4.20-5.40); Red Cell Dist. Width 20.6 % (11.5-14.5); White Blood Cell Count 7.6 10^3/uL (4.8-10.8)
[2024-10-17 19:45] LABS: Lactic Acid 1.1 mmol/L (0.7-2.0)
[2024-10-17 20:00] VITALS: BP 110/50
[2024-10-17 20:09] LABS: ALT (SGPT) 14 U/L (0-35); AST (SGOT) 21 U/L (14-36); Albumin 2.8 g/dl (3.5-5.0); Alkaline Phosphatase 115 U/L (38-126); Blood Urea Nitrogen 29 mg/dl (7-17); Calcium 8.2 mg/dl (8.4-10.2); Carbon Dioxide 25 mmol/L (22-30); Chloride 103 mmol/L (98-107); Estimated Creatinine Clearance 71 ml/min; Glucose 165 mg/dl (70-99); Potassium 4.5 mmol/L (3.5-5.1); Sodium 132 mmol/L (135-145); Total Bilirubin 0.4 mg/dl (0.2-1.3); Total Protein 5.7 g/dl (6.3-8.2); eGFR > 60.00
[2024-10-17] MEDS: VANCOCIN 540 MG IV (20:31)
--- NOTE | 2024-10-17 21:02 | HPS.HSE ---
Family Physician
-
Family Physician: Lopez Carrera
Chief Complaint
-
left leg infection
History of Present Illness
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
hypertension, peripheral neuropathy, depression, obesity, restless leg syndrome, obstructive sleep apnea, presenting for left leg redness and pain. Symptoms began worsening a week ago with weeping. She was seen by mileage clerk today and was sent
to the emergency room for IV antibiotics. She denies fevers or chills, systemic symptoms.
Medical History
Past Medical History
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
peripheral neuropathy, depression, obesity, restless leg syndrome, obstructive sleep ap)
Past Surgical History: Reports Other (Bowel resection (Gastric bypass), Gynecological (Hysterectomy), Orthopedic (Bilateral carpal tunnel , Left and right knee replacement, Repair fracture Left femur, ) and Other (Gastric bypass, Prolapsed rectum
repair, ))
Social History
Tobacco: Non-smoker
Alcohol: None
Drug: None
Family History
Family History: Not pertinent
Allergies / Home Medications
Allergies reflects when Allergies were last updated in [facility]actually.
Home Medications with original date entered in [facility]actually
Allergy/Medication List:
Allergies
Allergy/AdvReac Type Severity Reaction Status Date / Time
adhesive tape [Adhesive Tape] Allergy Rash Verified 10/17/24 16:28
Cephalosporins Allergy Unknown Verified 10/17/24 16:28
latex [Latex] Allergy Unknown Verified 10/17/24 16:28
Penicillins Allergy trouble Verified 10/17/24 16:28
breathing
Sulfa (Sulfonamide Allergy Rash Verified 10/17/24 16:28
Antibiotics)
sulfamethoxazole Allergy Rash Verified 10/17/24 16:28
trimethoprim Allergy Rash Verified 10/17/24 16:28
Home Medications
venlafaxine 75 mg capsule,extended release 24 hr (Effexor XR) 75 mg PO DAILY Depression 02/05/11
gabapentin 300 mg capsule 1,200 mg PO HS restless leg syndrome 07/07/23
venlafaxine 150 mg capsule,extended release 24 hr (Effexor XR) 150 mg PO DAILY Depression 07/07/23
aspirin 81 mg tablet,delayed release 81 mg PO DAILY Blood Clot Prevention/Tx 05/17/24
doxycycline hyclate 100 mg capsule 100 mg PO BID 10/17/24
lisinopril 20 mg tablet 20 mg PO DAILY 10/17/24
pramipexole 1.5 mg tablet 1.5 mg PO HS 10/17/24
Review of Systems
-
History Source: Patient
A 12 point ROS was completed and negative except as noted: Yes
Constitutional: Reports No Symptoms
EENT: Reports No Symptoms
Respiratory: Reports No Symptoms
Cardiac: Reports No Symptoms
Abdomen/GI: Reports No Symptoms
: Reports No Symptoms
Musculoskeletal: Reports No Symptoms
Skin: Reports See HPI and Other
Neurological: Reports No Symptoms
Endocrine: Reports No Symptoms
Hematologic/Lymphatic: Reports No Symptoms
Psych: Reports No Symptoms
Physical Exam
Vital Signs
Vital Signs
Temp Pulse Resp BP Pulse Ox
98.8 F 94 20 109/76 99
10/17/24 16:28 10/17/24 16:28 10/17/24 16:28 10/17/24 16:28 10/17/24 19:28
Physical Exam
General: Well Developed, Well Nourished and No Apparent Distress
HEENT: NormoCephalic, Moist mucous membranes and Atraumatic
Respiratory: Clear
Cardiac: S1/S2 and Regular Rhythm; No Murmur or Rub
GI: Soft, Non Tender, Non Distended and Normal Bowel Sounds; No Organomegaly
Rectal: Deferred by Provider
Musculoskeletal: No Clubbing, No Cyanosis and No Edema
Skin: Other (left leg erythema, redness and tenderness ); No Rash
Neuro: Nonfocal/grossly intact
Laboratory Results
-
10/17/24 19:24
10/17/24 19:42
Laboratory Results
Lactic Acid 1.1 mmol/L (0.7-2.0) 10/17/24 19:24
Total Bilirubin 0.4 mg/dl (0.2-1.3) 10/17/24 19:42
AST 21 U/L (14-36) 10/17/24 19:42
ALT 14 U/L (0-35) 10/17/24 19:42
Alkaline Phosphatase 115 U/L (38-126) 10/17/24 19:42
Data Reviewed
-
Lab Data: Labs Reviewed by me
Old Records: Reviewed
Impression/Plan
-
IMPRESSION:
PLAN:
# Recurrent left leg cellulitis
-Not septic this time
-Vancomycin
-ID consult
#History of left lower extremity cellulitis/abscess status post I&D
-Culture grew MRSA
-Status post I&D
#History of left total knee replacement in 06/04 with periprosthetic fracture status post revision in 09/05 and again revision at [facility] with placement of new sumeet in October
Breast cancer status post lumpectomy/radiation
Melanoma status post incision
History of right total knee replacement
History of gastric bypass
Chronic microcytic anemia
-Hemoglobin of 8.8 close to baseline
Essential hypertension
-Continue lisinopril
Peripheral neuropathy
Anxiety/depression
-Continue venlafaxine
Restless leg syndrome
-Continue pramipexole, gabapentin
Obesity
Obstructive sleep apnea
Full code
DVT prophylaxis-heparin
Regular diet
[2024-10-17 21:40] VITALS: BP 116/54; BMI 39.5
[2024-10-17] MEDS: MIRAPEX, GENERIC 1.5 MG PO (22:40)
[2024-10-17] MEDS: NEURONTIN 1200 MG PO (22:43)
[2024-10-18] MEDS: VANCOCIN 275 MG IV (05:51)
[2024-10-18] MEDS: FLUSH (NSS) 2 FLUSH IV ×2 (05:51→22:13)
[2024-10-18 06:36] LABS: % Basophils 0.4 % (0-2); % Eosinophils 1.8 % (0-6); % Immature Granulocytes 0.4 % (0-0.5); % Lymphocytes 29.8 % (20.5-51.1); % Monocytes 9.2 % (1.7-9.3); % Neutrophils 58.4 % (42.2-75.2); Absolute Eosinophils 0.1 10^3/uL (0-0.7); Absolute Lymphocytes 2.3 10^3/uL (1.2-3.4); Absolute Monocytes 0.7 10^3/uL (0.1-0.6); Absolute Neutrophils 4.5 10^3/uL (1.4-6.5); Hemoglobin 7.3 g/dL (12.0-16.0); Mean Corp Hgb Conc. 30.4 g/dL (33.0-37.0); Mean Corpuscular Hgb 20.4 pg (27.0-31.0); Mean Platelet Volume 8.8 fL (7.4-10.4); Nucleated Red Blood Cells % 0 %; Platelet Count 354 10^3/uL (130-400); Red Blood Cell Count 3.58 10^6/uL (4.20-5.40); Red Cell Dist. Width 20.6 % (11.5-14.5); White Blood Cell Count 7.6 10^3/uL (4.8-10.8)
[2024-10-18 07:00] VITALS: BP 121/69
[2024-10-18 07:14] LABS: ALT (SGPT) 14 U/L (0-35); AST (SGOT) 23 U/L (14-36); Albumin 3.1 g/dl (3.5-5.0); Alkaline Phosphatase 121 U/L (38-126); Blood Urea Nitrogen 27 mg/dl (7-17); Calcium 8.3 mg/dl (8.4-10.2); Carbon Dioxide 24 mmol/L (22-30); Chloride 104 mmol/L (98-107); Estimated Creatinine Clearance 82 ml/min; Glucose 84 mg/dl (70-99); Potassium 4.7 mmol/L (3.5-5.1); Sodium 137 mmol/L (135-145); Total Bilirubin 0.8 mg/dl (0.2-1.3); Total Protein 6.1 g/dl (6.3-8.2); eGFR > 60.00
[2024-10-18] MEDS: ZESTRIL 20 MG PO (09:12)
[2024-10-18] MEDS: EFFEXOR XR 75 MG PO (09:13)
[2024-10-18] MEDS: HEPARIN 5000 UNITS SC ×2 (09:13→19:31)
[2024-10-18] MEDS: EFFEXOR XR 150 MG PO (09:13)
[2024-10-18] MEDS: ASPIR LOW (ENTERIC COATED) 81 MG PO (09:13)
--- NOTE | 2024-10-18 09:56 | W.PN.HOSP.TC ---
Today's Communication/Plan
-
74-year-old woman with past medical history of:
MRSA,
obesity (BMI 39.5),
breast cancer status postlumpectomy/radiation,
melanoma status post incision,
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
right TKR,
chronic anemia,
essential hypertension,
peripheral neuropathy,
depression,
restless leg syndrome,
obstructive sleep apnea,
presents for left leg redness and pain. Symptoms began worsening a week ago with weeping. She was seen by senior telecommunications engineer and was sent to the emergency room for IV antibiotics. She denies fevers or chills, systemic symptoms.
Impression/Plan
1. Recurrent left leg cellulitis -Not septic this time, she states leg feels better
-Continue Vancomycin
-ID consult pending
2. History of left lower extremity cellulitis/abscess status post I&D - wound now closed
-Culture grew MRSA
-Status post I&D
-await ID recs
3. BUN/Creat > 20, 27/0.6
Encourage PO intake
Check daily
4. Other medical history to note:
History of left total knee replacement in 06/04 with periprosthetic fracture
status post revision in 09/05 and again revision at [facility] with placement of new sumeet in October
Breast cancer status post lumpectomy/radiation
Melanoma status post incision
History of right total knee replacement
History of gastric bypass
Chronic microcytic anemia
-Initial Hemoglobin of 8.8 close to baseline
-Follow daily while in hospital
Essential hypertension
-Continue lisinopril
Peripheral neuropathy
Anxiety/depression
-Continue venlafaxine
Restless leg syndrome
-Continue pramipexole, gabapentin
Obesity with BMI 0f 39.5
Obstructive sleep apnea
Full code
DVT prophylaxis-heparin
Regular diet
Assessment / Plan
Assessment / Plan
74-year-old woman with past medical history of:
MRSA,
obesity (BMI 39.5),
breast cancer status postlumpectomy/radiation,
melanoma status post incision,
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
right TKR,
chronic anemia,
essential hypertension,
peripheral neuropathy,
depression,
restless leg syndrome,
obstructive sleep apnea,
presents for left leg redness and pain. Symptoms began worsening a week ago with weeping. She was seen by senior telecommunications engineer and was sent to the emergency room for IV antibiotics. She denies fevers or chills, systemic symptoms.
Impression/Plan
1. Recurrent left leg cellulitis -Not septic this time, she states leg feels better
-Continue Vancomycin
-ID consult pending
2. History of left lower extremity cellulitis/abscess status post I&D - wound now closed
-Culture grew MRSA
-Status post I&D
-await ID recs
3. BUN/Creat > 20, 27/0.6
Encourage PO intake
Check daily
4. Other medical history to note:
History of left total knee replacement in 06/04 with periprosthetic fracture
status post revision in 09/05 and again revision at [facility] with placement of new sumeet in October
Breast cancer status post lumpectomy/radiation
Melanoma status post incision
History of right total knee replacement
History of gastric bypass
Chronic microcytic anemia
-Initial Hemoglobin of 8.8 close to baseline
-Follow daily while in hospital
Essential hypertension
-Continue lisinopril
Peripheral neuropathy
Anxiety/depression
-Continue venlafaxine
Restless leg syndrome
-Continue pramipexole, gabapentin
Obesity with BMI 0f 39.5
Obstructive sleep apnea
Full code
DVT prophylaxis-heparin
Regular diet
Anticipated Discharge: 24 - 48 hours
Subjective/Interval History
-
Date of Service: October 18, 2024
Feels well. Leg feeling better. Tolerating a diet.
Objective Data
-
Labs:
Laboratory Results
10/18/24
06:16
WBC 7.6
Hgb 7.3 L
Hct 24.0 L
Plt Count 354
Sodium 137
Potassium 4.7
Chloride 104
Carbon Dioxide 24
BUN 27 H
Creatinine 0.6
Glucose 84
Calcium 8.3 L
Total Bilirubin 0.8
AST 23
ALT 14
Alkaline Phosphatase 121
Vital Signs:
Vital Signs
Temp Pulse Resp BP Pulse Ox
98.9 F 98 18 121/69 97
10/18/24 07:00 10/18/24 09:12 10/18/24 07:00 10/18/24 09:12 10/18/24 07:00
I&O
10/17/24 10/18/24 10/19/24
06:59 06:59 07:59
Intake Total 360 / 360
Balance 360 / 360
Review of Systems
-
History Source: Patient
All other systems: Reviewed and negative
Physical Exam
-
General: Well Developed, Well Nourished, No Apparent Distress, Comfortable and Morbidly Obese
HEENT: Nose Appears Normal and Ears Appear Normal
Respiratory: Clear to Auscultation
Cardiac: Regular Rhythm and S1/S2
GI: Soft, Nontender and Nondistended
Musculoskeletal: No Clubbing, No Cyanosis, Edema, Right Lower Extrem and Edema, Left Lower Extrem
Skin: Warm, Dry and Other (red, swollen left lower leg)
Neuro: Awake, Alert, Oriented and AO x 3
Psych: Calm
Data Reviewed
-
Labs: Labs Reviewed by me
--- NOTE | 2024-10-18 13:13 | CON.ID ---
Consultation
-
Date/Time Consultation Requested: October 17, 20249
Date/Time Consultation Performed: October 18, 2024 1315
Requesting Provider: Dr. Gareth Patel
Performing Provider: Dr. Sindhu Sandoval
Reason for Consultation: Recurrent cellulitis
Chief Complaint / Past History
Chief Complaint
Left leg swelling and redness
History of Present Illness
Nicolle Sullivan is a 73-year-old female being evaluated at the request of Dr. Tsai for recurrent cellulitis. The patient has a history of a left TKA in 05/[address] Sahu, periprosthetic fracture with large suprapatellar joint effusion
s/p left TKA partial revision and sumeet placement in August 2023, MRSA abscess left distal knee s/p drainage October 2023 on suppressive doxycycline for probable PJI who developed LLE edema 4 days ago with weeping. Leg then became red and painful. She
presented to ED on October 17. Peripheral vascular ultrasound negative for DVT. She was started on vancomycin. Leg is no longer weeping. However it is still painful. No fevers or chills at home. She does use compression stockings and pumps at
home.
Past History
Additional Past Medical History:
HTN
Restless leg syndrome
Hx breast CA (s/p lumpectomy, XRT)
Anxiety/depression
DWAIN
Class III obesity BMI of 39.5
(L) TKR (05/2023; [place]; subsequent periprosthetic fracture s/p partial revision, sumeet placement (08/2023)
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
Right TKR (2012)
Gastric bypass
Melanoma excision of left calderon
NAN
Allergy History:
adhesive tape [Adhesive Tape] Allergy (Verified 10/17/24 16:28)
Rash
Cephalosporins Allergy (Verified 10/17/24 16:28)
Unknown
latex [Latex] Allergy (Verified 10/17/24 16:28)
Unknown
Penicillins Allergy (Verified 10/17/24 16:28)
trouble breathing
Sulfa (Sulfonamide Antibiotics) Allergy (Verified 10/17/24 16:28)
Rash
sulfamethoxazole Allergy (Verified 10/17/24 16:28)
Rash
trimethoprim Allergy (Verified 10/17/24 16:28)
Rash
Medications Reviewed: Yes
Current Antibiotics:
Vancomycin
Social History
Tobacco: Non-Smoker
Alcohol: None
Drug: None
Personal:
Living: With Family
Employment: Not Employed
Family History
Family History: Not Pertinent
Review of Systems
Review of Systems
General: Negative Fever, Chills or Change in Appetite
HEENT: Negative Sinus Problems or Headache
Cardiovascular: Negative Chest Pain or Dyspnea
Respiratory: Negative Dyspnea or Cough
Gasteroenterology: Negative Nausea, Vomiting or Diarrhea
Genital / Urological: Negative Dysuria or Flank Pain
Endocrine: Negative Weakness
All systems: All other systems were reviewed and were negative
Vital Signs
Temp Pulse Resp BP Pulse Ox
98.9 F 98 18 121/69 97
10/18/24 07:00 10/18/24 09:12 10/18/24 07:00 10/18/24 09:12 10/18/24 08:15
Physical Exam
Physical Exam
Constitutional: No Acute Distress and Comfortable
Eyes: No Conjunctival Hemorrhage and Sclera Anicteric
Cardiovascular: Regular Rate and S1/S2
Pulmonary: Clear
Gastrointestinal: Soft, Non Distended and Normal Bowel Sounds
Genito-Urinary: Negative CVA Tenderness
Extremities: Edema (LLE 2+ ) and Erythema (LLE from ankle up to below knee, + warmth.)
Musculoskeletal: Other (left knee: no effusion/erythema)
Skin: Dry (Distal LLE very dry with cracked fissures posterior ankle)
Neurological: AO x 3
Lab / Diagnostic Study Results
10/18/24 06:16
10/18/24 06:16
Abs Immat Gran (auto) 0.0 10^3/uL (0-0.05) 10/18/24 06:16
Absolute Neuts (auto) 4.5 10^3/uL (1.4-6.5) 10/18/24 06:16
Absolute Lymphs (auto) 2.3 10^3/uL (1.2-3.4) 10/18/24 06:16
Absolute Monos (auto) 0.7 10^3/uL (0.1-0.6) H 10/18/24 06:16
Absolute Basos (auto) 0.0 10^3/uL (0-0.2) 10/18/24 06:16
Immature Gran % 0.4 % (0-0.5) 10/18/24 06:16
Neutrophils % 58.4 % (42.2-75.2) 10/18/24 06:16
Lymphocytes % 29.8 % (20.5-51.1) 10/18/24 06:16
Monocytes % 9.2 % (1.7-9.3) 10/18/24 06:16
Eosinophils % 1.8 % (0-6) 10/18/24 06:16
Basophils % 0.4 % (0-2) 10/18/24 06:16
Lactic Acid 1.1 mmol/L (0.7-2.0) 10/17/24 19:24
[facility] No evidence of deep venous thrombosis in the left lower extremity
Assessment / Plan
#LLE cellulitis
#LLE lymphedema
# h/o MRSA LLE abscess
# PCN allergy - severe
-Continue Vancomycin.
-Moisturize dry skin twice daily
-[place] wrap compression
-Elevate lower extremity
#(L) TKR (05/2023; [facility]; subsequent periprosthetic fracture s/p partial revision, sumeet placement (08/2023)
# L distal knee (MRSA) abscess s/p drainage 10/2023, on doxycycline suppressive therapy for probable left knee PJI
- Hold doxycycline while on Vancomycin
[2024-10-18] MEDS: LAC HYDRIN, AM LACTIN LOTION 1 APPLIC TOPICAL ×2 (14:26→19:36)
[2024-10-18 15:05] VITALS: BP 102/50
[2024-10-18] MEDS: DESENEX/MITRAZOL/ZEASORB 1 APPLIC TOPICAL (21:25)
[2024-10-18] MEDS: MIRAPEX, GENERIC 1.5 MG PO (21:26)
[2024-10-18] MEDS: NEURONTIN 1200 MG PO (21:26)
--- NOTE | 2024-10-18 21:51 | PHA.VAN.IN ---
Assessment
- Assessment
Renal Function: Appears similar to baseline
Historical Micro: History of MRSA infection
- Previous Dosing Experience
Pt previously on vancomycin (May 2024), but Scr/BUN elevated at that time. Scr improved during that admission, but BUN remained elevated- pt was dosed by random levels.
AUC Dosing Plan
- Dosing Variables
Dosing Weight (kg): 91.8
Dosing CrCl (ml/min): 82
Vd coefficient (L/kg): 0.6
- Empiric Dosing
Initial / Loading Dose: Vancomycin 2000mg 3/7 at 2030 and vancomycin 1250mg 3/8 at 0600
Maintenance Regimen: Vancomycin 1000mg IV Q12h starting tonight.
Estimated AUC (mcg*h/mL): 519
Estimated Peak (mcg*h/mL): 31.3
Estimated Trough (mcg/ml): 14.1
Estimated Half Life (H): 9.6
- Monitoring
No levels ordered at this time: Will continue to follow labs and order peak/trough prior to steady state.
BUN slightly elevated- will proceed cautiously and change to dose by level if it continues to trend up.
Pharmacokinetics Vancomycin I
- -
Patient Age: 74
Patient Sex: Female
Requesting Provider: Dr. Tsai
Pertinent Antimicrobial Allergies:
Cephalosporins Allergy (Verified 10/17/24 16:28)
Unknown
Penicillins Allergy (Verified 10/17/24 16:28)
trouble breathing
Sulfa (Sulfonamide Antibiotics) Allergy (Verified 10/17/24 16:28)
Rash
sulfamethoxazole Allergy (Verified 10/17/24 16:28)
Rash
trimethoprim Allergy (Verified 10/17/24 16:28)
Rash
Height / Weight:
Height 5 ft
Actual Weight 91.824 kg
Pertinent Past Medical History: h/o MRSA abscess 11/03- on suppressive doyxcycline [place]ER DOCK, h/o Breast Cancer
- Vital Signs / Lab Results
Temp Pulse Resp BP Pulse Ox
98.2 F 97 16 102/50 98
10/18/24 15:05 10/18/24 15:05 10/18/24 15:05 10/18/24 15:05 10/18/24 15:05
Lab Results - Hematology
10/17/24 10/18/24
19:24 06:16
WBC 7.6 7.6
Lab Results - Chemistry
10/17/24 10/17/24 10/18/24
19:24 19:42 06:16
BUN Cancelled 29 H 27 H
Creatinine Cancelled 0.7 0.6
Estimated Creat Clear Cancelled 71 82
Albumin Cancelled 2.8 L 3.1 L
10/17/24
19:24
Lactic Acid 1.1
[2024-10-18] MEDS: VANCOCIN 200 IV (22:12)
[2024-10-18 23:00] VITALS: BP 109/50
[2024-10-19 06:47] LABS: Hematocrit 24.8 % (37.0-47.0); Hemoglobin 7.4 g/dL (12.0-16.0); Mean Corp Hgb Conc. 29.8 g/dL (33.0-37.0); Mean Corpuscular Hgb 20.4 pg (27.0-31.0); Mean Corpuscular Volume 68.3 fL (81.0-99.0); Mean Platelet Volume 9.2 fL (7.4-10.4); Platelet Count 370 10^3/uL (130-400); Red Blood Cell Count 3.63 10^6/uL (4.20-5.40); Red Cell Dist. Width 21.1 % (11.5-14.5); White Blood Cell Count 7.2 10^3/uL (4.8-10.8)
[2024-10-19 07:08] LABS: Blood Urea Nitrogen 23 mg/dl (7-17); Calcium 8.2 mg/dl (8.4-10.2); Carbon Dioxide 27 mmol/L (22-30); Chloride 104 mmol/L (98-107); Estimated Creatinine Clearance 82 ml/min; Glucose 111 mg/dl (70-99); Potassium 4.7 mmol/L (3.5-5.1); Sodium 134 mmol/L (135-145); eGFR > 60.00
[2024-10-19 07:12] VITALS: BP 144/74
[2024-10-19] MEDS: VANCOCIN 200 IV ×2 (08:33→18:35)
[2024-10-19] MEDS: HEPARIN 5000 UNITS SC ×2 (08:34→21:39)
[2024-10-19] MEDS: EFFEXOR XR 150 MG PO (08:34)
[2024-10-19] MEDS: ASPIR LOW (ENTERIC COATED) 81 MG PO (08:34)
[2024-10-19] MEDS: ZESTRIL 20 MG PO (08:35)
[2024-10-19] MEDS: EFFEXOR XR 75 MG PO (08:35)
[2024-10-19] MEDS: LAC HYDRIN, AM LACTIN LOTION 1 APPLIC TOPICAL ×2 (08:37→21:40)
[2024-10-19] MEDS: DESENEX/MITRAZOL/ZEASORB 1 APPLIC TOPICAL ×2 (08:37→21:41)
--- NOTE | 2024-10-19 09:37 | PHA.VAN.FU ---
Vancomycin Assessment / Plan
- Assessment
Renal Function: Stable (SCr 0.6)
WBC's are: WNL (7.2)
In the past 24 hrs, patient has been: Afebrile
- Dosing Plan
Continue: Vanco 1000mg Q12H
- Monitoring Plan
No level(s) ordered at this time: Consider in the next few days
- Follow Up
Pharmacy will continue to follow.
Vancomycin Follow UP
- -
Patient Age: 74
Patient Sex: Female
Vancomycin Day #: 3
Indication: Skin And Soft Tissue
Requesting Provider: Dr. Tsai
Pertinent Antimicrobial Allergies:
Penicillin - Trouble Breathing
Cephalosporin - Unknown
Sulfa - Rash
Height / Weight:
Height 5 ft
Actual Weight 91.824 kg
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
- Vital Signs / Lab Results
Temp Pulse Resp BP Pulse Ox
97.9 F 87 17 144/71 95
10/19/24 07:12 10/19/24 08:35 10/19/24 07:12 10/19/24 08:35 10/19/24 08:45
Lab Results - Hematology
10/17/24 10/18/24 10/19/24
19:24 06:16 06:04
WBC 7.6 7.6 7.2
Lab Results - Chemistry
10/17/24 10/17/24 10/18/24
19:24 19:42 06:16
BUN Cancelled 29 H 27 H
Creatinine Cancelled 0.7 0.6
Estimated Creat Clear Cancelled 71 82
Albumin Cancelled 2.8 L 3.1 L
10/19/24
06:04
BUN 23 H
Creatinine 0.6
Estimated Creat Clear 82
Albumin
10/17/24
19:24
Lactic Acid 1.1
--- NOTE | 2024-10-19 10:12 | W.PN.ID1 ---
Date of Service
Date of Service: October 19, 2024
Today's Communication
Continue Vancomycin.
Assessment / Plan
#LLE cellulitis
#LLE lymphedema
# h/o MRSA LLE abscess
# PCN allergy - severe
-Continue Vancomycin (d3)
-Continue Moisturize dry skin twice daily
-[place] wrap compression
-Elevate lower extremity
#(L) TKR (05/2023; [facility]; subsequent periprosthetic fracture s/p partial revision, sumeet placement (08/2023)
# L distal knee (MRSA) abscess s/p drainage 10/2023, on doxycycline suppressive therapy for probable left knee PJI
- Hold doxycycline while on Vancomycin
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
HTN
Restless leg syndrome
Hx breast CA (s/p lumpectomy, XRT)
Anxiety/depression
DWAIN
Class III obesity BMI of 39.5
(L) TKR (05/2023; [facility]; subsequent periprosthetic fracture s/p partial revision, sumeet placement (08/2023)
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
Right TKR (2012)
Gastric bypass
Melanoma excision of left calderon
NAN
Chief Complaint
-: Cellulitis
Subjective / Review of Systems
leg not as inflamed.
Vital Signs / Physical Exam
Vital Signs
Vital Signs
Temp Pulse Resp BP Pulse Ox
97.9 F 87 17 144/71 95
10/19/24 07:12 10/19/24 08:35 10/19/24 07:12 10/19/24 08:35 10/19/24 08:45
Physical Exam
Constitutional: No Acute Distress and Comfortable
Cardiovascular: Regular Rate and S1/S2
Pulmonary: Clear
Gastrointestinal: Soft, Non Tender and Non Distended
Extremities: Edema (LLE 1+) and Erythema (LLE: decreased erythema anteriorly, calf area still with bright erythema/warm)
Skin: Dry (LLE with cracked fissures posterior ankle)
Neurological: AO x 3
Objective Data
Lab Data
Lab Results
10/19/24 06:04
10/19/24 06:04
Estimated Creat Clear 82 ml/min 10/19/24 06:04
Lactic Acid 1.1 mmol/L (0.7-2.0) 10/17/24 19:24
Total Bilirubin 0.8 mg/dl (0.2-1.3) 10/18/24 06:16
AST 23 U/L (14-36) 10/18/24 06:16
ALT 14 U/L (0-35) 10/18/24 06:16
Alkaline Phosphatase 121 U/L (38-126) 10/18/24 06:16
Most recent labs reviewed.
10/17/24 [facility] US: No evidence of deep venous thrombosis in the left lower extremity
--- NOTE | 2024-10-19 10:19 | CM ---
Patient seen at bedside with
Dx: Cellulitis
IA completed
Lives in a 2 story home with , 4 steps to enter, flight to bed/bath, powder room 1st floor
PLOF: Ambulates with walker
Had [facility] in past and is current now with Outpatient PT at ambulatory center at
DME walker, cane, wheelchair, lymphedema pumps, compression stockings
PCP: Lopez Carrera
Pharmacy: [facility], [facility], [place]
PLAN: return to outpatient PT
--- NOTE | 2024-10-19 14:30 | W.PN.HOSP.TC ---
Today's Communication/Plan
-
Doing well. Continue with antibiotics.
Assessment / Plan
Assessment / Plan
74-year-old woman with past medical history of:
MRSA,
obesity (BMI 39.5),
breast cancer status postlumpectomy/radiation,
melanoma status post incision,
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
right TKR,
chronic anemia,
essential hypertension,
peripheral neuropathy,
depression,
restless leg syndrome,
obstructive sleep apnea,
presents for left leg redness and pain. Symptoms began worsening a week ago with weeping. She was seen by patternmaker grader and was sent to the emergency room for IV antibiotics. She denies fevers or chills, systemic symptoms.
Impression/Plan
1. Recurrent left leg cellulitis -Not septic this time, she states leg feels better
-Continue Vancomycin
-ID consult appreciate
-DC when cleared by ID
2. History of left lower extremity cellulitis/abscess status post I&D - wound now closed
-Culture grew MRSA
-Status post I&D
-Will follow ID recs
3. BUN/Creat > 20, 27/0.6, -> 23/0.6, improving
Encourage PO intake
Check daily
4. Other medical history to note:
History of left total knee replacement in 06/04 with periprosthetic fracture
status post revision in 09/05 and again revision at [facility] with placement of new sumeet in October
Breast cancer status post lumpectomy/radiation
Melanoma status post incision
History of right total knee replacement
History of gastric bypass
Chronic microcytic anemia
-Initial Hemoglobin of 8.8 close to baseline, H/H now 7.4
-Follow daily while in hospital
-no signs of bleeding
Essential hypertension
-Continue lisinopril
Peripheral neuropathy
Anxiety/depression
-Continue venlafaxine
Restless leg syndrome
-Continue pramipexole, gabapentin
Obesity with BMI 0f 39.5
Obstructive sleep apnea
Full code
DVT prophylaxis-heparin
Regular diet
Anticipated Discharge: > 48 hours
Subjective/Interval History
-
Date of Service: October 19, 2024
Feels well. No new issues. Walking.
Objective Data
-
Labs:
Laboratory Results
10/19/24
06:04
WBC 7.2
Hgb 7.4 L
Hct 24.8 L
Plt Count 370
Sodium 134 L
Potassium 4.7
Chloride 104
Carbon Dioxide 27
BUN 23 H
Creatinine 0.6
Glucose 111 H
Calcium 8.2 L
Vital Signs:
Vital Signs
Temp Pulse Resp BP Pulse Ox
97.9 F 87 17 144/71 95
10/19/24 07:12 10/19/24 08:35 10/19/24 07:12 10/19/24 08:35 10/19/24 08:45
I&O
10/18/24 10/19/24 10/20/24
05:59 06:59 06:59
Intake Total
Balance
Review of Systems
-
History Source: Patient
All other systems: Reviewed and negative
Physical Exam
-
General: Well Developed, Well Nourished, No Apparent Distress, Comfortable and Obese
HEENT: Normocephalic, Atraumatic, Moist Mucous Membranes, Nose Appears Normal and Ears Appear Normal
Respiratory: Clear to Auscultation
Cardiac: Regular Rhythm and S1/S2
GI: Soft, Nontender and Nondistended
Musculoskeletal: No Clubbing and No Cyanosis
Skin: Warm, Dry and Rash
Neuro: Awake, Alert and Oriented
Psych: Calm
Data Reviewed
-
Labs: Labs Reviewed by me
[2024-10-19 15:11] VITALS: BP 149/58
[2024-10-19] MEDS: MIRAPEX, GENERIC 1.5 MG PO (21:39)
[2024-10-19] MEDS: NEURONTIN 1200 MG PO (21:39)
[2024-10-19 23:10] VITALS: BP 135/58
[2024-10-20] MEDS: VANCOCIN 200 IV ×2 (05:28→18:19)
[2024-10-20 07:05] VITALS: BP 115/65
[2024-10-20 08:39] LABS: Hematocrit 25.8 % (37.0-47.0); Hemoglobin 7.6 g/dL (12.0-16.0); Mean Corp Hgb Conc. 29.5 g/dL (33.0-37.0); Mean Corpuscular Hgb 20.1 pg (27.0-31.0); Mean Corpuscular Volume 68.1 fL (81.0-99.0); Mean Platelet Volume 9.8 fL (7.4-10.4); Platelet Count 351 10^3/uL (130-400); Red Blood Cell Count 3.79 10^6/uL (4.20-5.40); Red Cell Dist. Width 21.2 % (11.5-14.5)
[2024-10-20 08:58] LABS: Blood Urea Nitrogen 17 mg/dl (7-17); Calcium 8.4 mg/dl (8.4-10.2); Carbon Dioxide 28 mmol/L (22-30); Chloride 105 mmol/L (98-107); Estimated Creatinine Clearance 82 ml/min; Glucose 99 mg/dl (70-99); Potassium 4.4 mmol/L (3.5-5.1); Sodium 136 mmol/L (135-145); eGFR > 60.00
[2024-10-20] MEDS: EFFEXOR XR 75 MG PO (09:03)
[2024-10-20] MEDS: HEPARIN 5000 UNITS SC ×2 (09:03→21:56)
[2024-10-20] MEDS: EFFEXOR XR 150 MG PO (09:03)
[2024-10-20] MEDS: ZESTRIL 20 MG PO (09:03)
[2024-10-20] MEDS: DESENEX/MITRAZOL/ZEASORB 1 APPLIC TOPICAL ×2 (09:04→21:57)
[2024-10-20] MEDS: ASPIR LOW (ENTERIC COATED) 81 MG PO (09:04)
[2024-10-20] MEDS: LAC HYDRIN, AM LACTIN LOTION 1 APPLIC TOPICAL ×2 (09:05→21:57)
--- NOTE | 2024-10-20 09:43 | PHA.VAN.FU ---
Vancomycin Assessment / Plan
- Assessment
Renal Function: Stable
WBC's are: WNL
In the past 24 hrs, patient has been: Afebrile
- Dosing Plan
Continue: Vanc 1000mg Q12H
- Monitoring Plan
Peak Level: 10/20 21:00
Trough Level: 10/21 05:30
Monitoring Comments: levels to be drawn after 5th maintenance dose
BUN & SCR ordered per protocol to be drawn with trough
- Follow Up
Pharmacy will continue to follow.
Vancomycin Follow UP
- -
Patient Age: 74
Patient Sex: Female
Vancomycin Day #: 4
Indication: Skin And Soft Tissue
Requesting Provider: Dr. Tsai
Pertinent Antimicrobial Allergies:
Penicillin - Trouble Breathing
Cephalosporin - Unknown
Sulfa - Rash
Height / Weight:
Height 5 ft
Actual Weight 91.824 kg
Pertinent Past Medical History: BMI ~39.5
- Vital Signs / Lab Results
Temp Pulse Resp BP Pulse Ox
97.7 F 92 20 115/65 94
10/20/24 07:05 10/20/24 09:03 10/20/24 07:05 10/20/24 09:03 10/20/24 09:07
Lab Results - Hematology
10/17/24 10/18/24 10/19/24
19:24 06:16 06:04
WBC 7.6 7.6 7.2
10/20/24
07:08
WBC 9.0
Lab Results - Chemistry
10/17/24 10/17/24 10/18/24
19:24 19:42 06:16
BUN Cancelled 29 H 27 H
Creatinine Cancelled 0.7 0.6
Estimated Creat Clear Cancelled 71 82
Albumin Cancelled 2.8 L 3.1 L
10/19/24 10/20/24
06:04 07:08
BUN 23 H 17
Creatinine 0.6 0.6
Estimated Creat Clear 82 82
Albumin
10/17/24
19:24
Lactic Acid 1.1
--- NOTE | 2024-10-20 12:08 | W.PN.HOSP.TC ---
Today's Communication/Plan
-
Assessment / Plan
Assessment / Plan
Gen-AAOx3, NAD
HEENT-NC, AT, anicteric, clear oral mm
Neck-supple
CV-reg, no M, +S1/S2
Lungs-clear B/L
Abd-soft, NT, ND
Musculoskeletal-left lower extremity edema, mild left knee TTP
Skin-left lower extremity erythema and skin breaks
Neuro-grossly non-focal
Psych-calm, cooperative
74-year-old woman with past medical history of:
MRSA,
obesity (BMI 39.5),
breast cancer status postlumpectomy/radiation,
melanoma status post incision,
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
right TKR,
chronic anemia,
essential hypertension,
peripheral neuropathy,
depression,
restless leg syndrome,
obstructive sleep apnea,
presents for left leg redness and pain. Symptoms began worsening a week ago with weeping. She was seen by senior brand manager and was sent to the emergency room for IV antibiotics. She denies fevers or chills, systemic symptoms.
Impression/Plan
1. Recurrent left leg cellulitis -Not septic this time, she states leg feels better
Source possibly skin breaks on left heel
-Continue Vancomycin and local wound care, currently little improvement in symptoms
-Unclear if this infection is involving her left knee joint with surgical hardware, will ask for Ortho input
-Will follow-up with ID regarding further recommendations
2. History of left lower extremity cellulitis/abscess status post I&D -anterior superior tibial wound now closed
-Culture grew MRSA
-Status post I&D
-Will follow ID recs
-Continue antibiotics and local wound care for treatment of recurrent cellulitis, source possibly skin breaks on left heel
3. BUN/Creat > 20, 27/0.6, -> 23/0.6, resolved
Encourage PO intake
Check daily
4. Other medical history to note:
History of left total knee replacement in 06/04 with periprosthetic fracture
status post revision in 09/05 and again revision at [facility] with placement of new sumeet in October
Breast cancer status post lumpectomy/radiation
Melanoma status post incision
History of right total knee replacement
History of gastric bypass
Chronic microcytic anemia
-Initial Hemoglobin of 8.8 close to baseline, H/H now 7.4
-Follow daily while in hospital
-no signs of bleeding
Essential hypertension
-Continue lisinopril
Peripheral neuropathy
Anxiety/depression
-Continue venlafaxine
Restless leg syndrome
-Continue pramipexole, gabapentin
Obesity with BMI 0f 39.5
Obstructive sleep apnea
Full code
DVT prophylaxis-heparin
Regular diet
Anticipated Discharge: 24 - 48 hours
Subjective/Interval History
-
Date of Service: October 20, 2024
Patient was seen and examined at bedside this morning. Continues to have left lower extremity swelling, erythema, and pain from heel to knee. No acute distress. Continuing treatment with vancomycin.
Objective Data
-
Labs:
Laboratory Results
10/20/24
07:08
WBC 9.0
Hgb 7.6 L
Hct 25.8 L
Plt Count 351
Sodium 136
Potassium 4.4
Chloride 105
Carbon Dioxide 28
BUN 17
Creatinine 0.6
Glucose 99
Calcium 8.4
Vital Signs:
Vital Signs
Temp Pulse Resp BP Pulse Ox
97.7 F 92 20 115/65 94
10/20/24 07:05 10/20/24 09:03 10/20/24 07:05 10/20/24 09:03 03/10/25 09:07
I&O
10/19/24 10/20/24 10/21/24
06:59 06:59 06:59
Intake Total 1619
Balance 1619
Review of Systems
-
History Source: Patient
All other systems: Reviewed and negative
Musculoskeletal: Reports Joint Pain (Left leg pain including left knee)
Skin: Reports Other (Left lower extremity erythema and skin breaks)
Physical Exam
-
General: No Apparent Distress
--- NOTE | 2024-10-20 13:04 | W.PN.ID1 ---
Date of Service
Date of Service: October 20, 2024
Today's Communication
Tighter [place]-wrap compression.
Continue Vancomycin.
Assessment / Plan
#LLE cellulitis, improving
#LLE lymphedema
# h/o MRSA LLE abscess
# PCN allergy - severe
-Continue Vancomycin (d4)
-Continue Moisturize dry skin twice daily
-Tighter [place] wrap compression
-Elevate lower extremity
#(L) TKR (05/2023; [facility]; subsequent periprosthetic fracture s/p partial revision, sumeet placement (08/2023)
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
- Hold doxycycline while on Vancomycin
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
HTN
Restless leg syndrome
Hx breast CA (s/p lumpectomy, XRT)
Anxiety/depression
DWAIN
Class III obesity BMI of 39.5
(L) TKR (05/2023; [facility]; subsequent periprosthetic fracture s/p partial revision, sumeet placement (08/2023)
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
Right TKR (2012)
Gastric bypass
Melanoma excision of left calderon
NAN
Chief Complaint
-: Cellulitis
Subjective / Review of Systems
c/o increase edema
Vital Signs / Physical Exam
Vital Signs
Vital Signs
Temp Pulse Resp BP Pulse Ox
97.7 F 92 20 115/65 94
10/20/24 07:05 10/20/24 09:03 10/20/24 07:05 10/20/24 09:03 10/20/24 09:07
Physical Exam
Constitutional: No Acute Distress
Pulmonary: Clear
Gastrointestinal: Soft, Non Tender and Non Distended
Extremities: Edema (LLE 2-3+) and Erythema (Erythema not as bright, is darker, mildly warm)
Skin: Dry (LLE improve)
Wound: Other (Cracked fissures on Left posterior ankle stable)
Neurological: AO x 3
Objective Data
Lab Data
Lab Results
10/20/24 07:08
10/20/24 07:08
Estimated Creat Clear 82 ml/min 10/20/24 07:08
Lactic Acid 1.1 mmol/L (0.7-2.0) 10/17/24 19:24
Total Bilirubin 0.8 mg/dl (0.2-1.3) 10/18/24 06:16
AST 23 U/L (14-36) 10/18/24 06:16
ALT 14 U/L (0-35) 10/18/24 06:16
Alkaline Phosphatase 121 U/L (38-126) 10/18/24 06:16
Most recent labs reviewed.
10/17/[address] US: No evidence of deep venous thrombosis in the left lower extremity
Care Review
Plan reviewed with: Physician (Dr. Landa)
--- NOTE | 2024-10-20 13:16 | CON.ORTHO ---
Consultation
-
Date/Time Consultation Requested: November 04/1203
Date/Time Consultation Performed: November 04/1300
Requesting Provider: Keith
Performing Provider: Zulema
Reason for Consultation: LLE cellulitis, r/o PJI
Consultation - Orthopedics
History
History of Present Illness:
74yo white female with a history of a left TKA in May 2023 (Dr. Sahu @ [place]) complicated by nonhealing wounds as well as recurrent cellulitis presenting with her at the request of Derm due to concerns of recurrent MRSA infection of the
RLE (history of) and the consideration of IV ABX. Currently on Vanco. Symptoms began worsening about a week ago. She reports weeping from her lower leg. She is chronically on doxycycline twice daily due to her recurrent infections. Denies any
other systemic symptoms. Prior wound culture LLE (lower leg now healed) in March 2024 grew out MRSA only susceptible to gentamicin and vancomycin. At this time she is afebrile with a normal WBC and does not complain of any isolated left knee pain.
Requested by Hospitalist, Dr. Parker With concerns that this might involve her TKA. of note earlier last year she also sustained a periprosthetic fracture with transfer to Dr. Sahu from [place]. Also presented with concerns of PJI around
October 2023, also transferred back to Dr. Sahu. of note she does have a history of right TKA in the remote past, also Dr. Sahu,which she recovered well from
Past History
Cancer (breast ca - tx'd with radiation & lumpectomy, disease free since last year, Skin CA), HTN, Psychiatric (Depression), Other (Restless leg syndrome,PNA, Sleep apnea, Anemia, ) and Other (Acute Renal Failure)
Surgical History
Bowel resection (Gastric bypass), Gynecological (Hysterectomy), Orthopedic (Bilateral carpal tunnel , Left and right knee replacement, Repair fracture Left femur, ) and Other (Gastric bypass, Prolapsed rectum repair, )
Social History
Tobacco: Non-smoker
Alcohol: None
Personal:
Living: with family
Family History
Family History: Negative Diabetes, Hypertension or CAD
ROS
12 point negative except for those mentioned in the HPI
Allergies / Home Medications
Allergy/AdvReac Type Severity Reaction Status Date / Time
adhesive tape [Adhesive Tape] Allergy Rash Verified 10/17/24 16:28
Cephalosporins Allergy Unknown Verified 10/20/24 09:41
latex [Latex] Allergy Unknown Verified 10/17/24 16:28
Penicillins Allergy trouble Verified 10/17/24 16:28
breathing
Sulfa (Sulfonamide Allergy Rash Verified 10/17/24 16:28
Antibiotics)
sulfamethoxazole Allergy Rash Verified 10/17/24 16:28
trimethoprim Allergy Rash Verified 10/17/24 16:28
�Medication �Instructions �Recorded
venlafaxine 75 mg capsule,extended 75 mg PO DAILY Depression 02/05/11
release 24 hr (Effexor XR)
gabapentin 300 mg capsule 1,200 mg PO HS restless leg 07/07/23
syndrome
venlafaxine 150 mg 150 mg PO DAILY Depression 07/07/23
capsule,extended release 24 hr
(Effexor XR)
aspirin 81 mg tablet,delayed 81 mg PO DAILY Blood Clot 05/17/24
release Prevention/Tx
doxycycline hyclate 100 mg capsule 100 mg PO BID 10/17/24
lisinopril 20 mg tablet 20 mg PO DAILY 10/17/24
pramipexole 1.5 mg tablet 1.5 mg PO HS 10/17/24
Vital Signs / Lab Results
Temp Pulse Resp BP Pulse Ox
97.7 F 92 20 115/65 94
10/20/24 07:05 10/20/24 09:03 10/20/24 07:05 10/20/24 09:03 10/20/24 09:07
10/20/24 07:08
10/20/24 07:08
Assessment / Plan
PE: Patient currently in bedside chair, with , Frank, at the bedside. however, she did ambulate comfortably from the bathroom on her walker. Obvious cellulitic changes of the LLE involving, faintly, the distal aspect of her TKA incision, and
extending to the foot. Some small breaks in the skin around the heel area with no active drainage. Healed wound noted over the proximal third of the anterior left lower leg. To palpation no pain noted around her left TKA prosthesis. No
intra-articular effusion noted clinically. Pain-free range of motion of the knee from 0 to 120 degrees. Calf is a bit tense from cellulitic changes, But nontender. DNVI LLE.
Xrays: Pending
Impression: LLE cellulitis
Plan: I had a very lengthy discussion with both the patient and her , Frank. She has a very long and complicated history here regarding her left knee (TKA) and lower extremity, with recurrent cellulitis and multiple surgeries. I also
discussed with attending hospitalist, Dr. Parker. This appears, at present, to be an isolated case of LLE cellulitis. She is currently afebrile with a normal WBC. acute reactive inflammatory markers could be considered, but have not been
currently done. She has pain-free range of motion to 120 degrees and no intra-articular effusion. No aspiration, at this time, indicated. I believe the source is probably the small open areas around her heel. Will review x-rays when they are
available. I am currently not concerned for PJI, however it does need to be a concern, based on how her clinical picture progresses. For now we will continue with wound care to the heel, compression, and IV ABX (currently vancomycin). If at any
point her clinical picture changes, and there is a stronger clinical concern for intra-articular involvement, I would recommend a transfer back to Dr. Sahu at [place] ([facility]). For now, would continue treatment per the primary team, which
is very much appreciated. Orthopedics here at will monitory peripherally.
[2024-10-20 13:31] LABS: Total Iron Binding Capacity 327 ug/dl (265-497)
[2024-10-20 13:32] LABS: Iron < 20 ug/dl (37-170)
[2024-10-20 13:57] LABS: Ferritin 15.4 ng/ml (11.1-264.0)
--- NOTE | 2024-10-20 14:50 | WOUNDNOTE ---
[facility] RN NOTE: Reviewed chart and met with patient. Patient visited for right leg and foot wounds. Patient reports there was some drainage noted from her leg upon admission, but no drainage or open wound noted at time of assessment. Bilateral heels
intact with some fissures noted on left heel. Sacrum intact. Patient able to stand and ambulate with walker. Reports good appetite. Will sign off as no open wounds noted.
[2024-10-20 15:24] VITALS: BP 143/69
[2024-10-20] MEDS: NEURONTIN 1200 MG PO (21:57)
[2024-10-20] MEDS: MIRAPEX, GENERIC 1.5 MG PO (21:58)
[2024-10-20 22:19] LABS: Vancomycin Peak 25.9 ug/ml (18-26)
[2024-10-20 23:19] VITALS: BP 138/64
[2024-10-21 06:14] LABS: Blood Urea Nitrogen 17 mg/dl (7-17); Estimated Creatinine Clearance 82 ml/min
[2024-10-21 06:20] LABS: Vancomycin Trough 18.6 ug/ml (5-20)
[2024-10-21] MEDS: VANCOCIN 200 IV (06:34)
[2024-10-21 07:10] VITALS: BP 135/59
--- NOTE | 2024-10-21 07:26 | W.PN.UPDATE ---
Update Note
Progress Note Update
Patient resting comfortably in bed this morning. She remains afebrile. She has painless ROM of her knee. Xrays show revision left TKA without evidence of hardware complication, no obvious fracture. Currently on IV vancomycin. If at any point her
clinical picture changes, and there is a stronger clinical concern for intra-articular involvement, I would recommend a transfer back to Dr. Sahu at [place] ([facility]). Continue management per primary team.
[2024-10-21] MEDS: ZESTRIL 20 MG PO (08:23)
[2024-10-21] MEDS: EFFEXOR XR 75 MG PO (08:23)
[2024-10-21] MEDS: ASPIR LOW (ENTERIC COATED) 81 MG PO (08:23)
[2024-10-21] MEDS: EFFEXOR XR 150 MG PO (08:23)
[2024-10-21] MEDS: HEPARIN 5000 UNITS SC (08:23)
[2024-10-21] MEDS: LAC HYDRIN, AM LACTIN LOTION 1 APPLIC TOPICAL (08:26)
[2024-10-21] MEDS: DESENEX/MITRAZOL/ZEASORB 1 APPLIC TOPICAL (08:26)
--- NOTE | 2024-10-21 08:27 | PHA.VAN.FU ---
Vancomycin Assessment / Plan
- Assessment
Renal Function: Stable
WBC's are: WNL
In the past 24 hrs, patient has been: Afebrile
- Assessment - Therapeutic Drug Monitoring
Extrapolated Cmax (mcg/mL): 29
Peak level was drawn: Appropriately (drawn ~2.6H after end of previous infusion)
Extrapolated Cmin (mcg/mL): 18
Trough Drawn: Appropriately
Levels were drawn: At steady state (levels drawn after 5th maintenance dose)
Calculated AUC (mcg*h/mL): 554
Calculated ke: 0.0437
Calculated half life (H): 15.9
Calculated Vd (L): 82.6 (~0.9 L/kg)
Calculated Vanc CL (ml/min): 60
AUC currently in appropriate range but half-life > dosing interval --> expect additional accumulation
- Dosing Plan
Adjust Regimen to: Vanc 1500mg Q24H starting 10/22 0600
New Regimen Predicts: AUC (429), Peak (28), Trough (10.5)
Will hold off on further dosing today as trough was elevated and patient received 1g this AM
- Monitoring Plan
No level(s) ordered at this time: consider repeat levels in next few days
- Follow Up
Pharmacy will continue to follow.
Vancomycin Follow UP
- -
Patient Age: 74
Patient Sex: Female
Vancomycin Day #: 5
Indication: Skin And Soft Tissue
Requesting Provider: Dr. Tsai / Jaime
Pertinent Antimicrobial Allergies:
Penicillin - Trouble Breathing
Cephalosporin - Unknown
Sulfa - Rash
Height / Weight:
Height 5 ft
Actual Weight 91.824 kg
Pertinent Past Medical History: BMI ~39.5
- Vital Signs / Lab Results
Temp Pulse Resp BP Pulse Ox
98.0 F 100 18 135/59 95
10/21/24 07:10 10/21/24 08:23 10/21/24 07:10 10/21/24 08:23 10/21/24 07:10
Lab Results - Hematology
10/19/24 10/20/24
06:04 07:08
WBC 7.2 9.0
Lab Results - Chemistry
10/19/24 10/20/24 10/21/24
06:04 07:08 05:31
BUN 23 H 17 17
Creatinine 0.6 0.6 0.6
Estimated Creat Clear 82 82 82
Therapeutic Drug Monitoring
Vancomycin Peak 25.9 ug/ml (18-26) 10/20/24 21:56
Vancomycin Trough 18.6 ug/ml (5-20) 10/21/24 05:31
--- NOTE | 2024-10-21 10:50 | W.PN.ID1 ---
Date of Service
Date of Service: October 21, 2024
Today's Communication
Transition Vancomycin (d5) to clindamycin 600mg po q8h through 10/26/24.
Discussed risk for C. diff.
Can take probiotic (can't hurt)
Resume suppressive doxycycline after finish clindamycin.
Assessment / Plan
#LLE cellulitis, resolving
#LLE lymphedema
# h/o MRSA LLE abscess
# Allergy to PCN, sulfa- severe
-Continue Moisturize dry skin twice daily
-[place] wrap compression
-Elevate lower extremity
- Unable to use linezolid due to interaction with Effexor
-Transition Vancomycin (d5) to clindamycin 600mg po q8h through 10/26/24.
Discussed risk for C. diff.
Can take probiotic (can't hurt)
#(L) TKR (05/2023; [facility]; subsequent periprosthetic fracture s/p partial revision, sumeet placement (08/2023)
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
- Resume doxycycline after completion of clindamycin.
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
HTN
Restless leg syndrome
Hx breast CA (s/p lumpectomy, XRT)
Anxiety/depression
DWAIN
Class III obesity BMI of 39.5
(L) TKR (05/2023; [facility]; subsequent periprosthetic fracture s/p partial revision, sumeet placement (08/2023)
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
Right TKR (2012)
Gastric bypass
Melanoma excision of left calderon
NAN
Chief Complaint
-: Cellulitis
Subjective / Review of Systems
Feeling better.
Vital Signs / Physical Exam
Vital Signs
Vital Signs
Temp Pulse Resp BP Pulse Ox
98.0 F 100 18 135/59 95
10/21/24 07:10 10/21/24 08:23 10/21/24 07:10 10/21/24 08:23 10/21/24 07:10
Physical Exam
Constitutional: No Acute Distress and Obese
Pulmonary: Clear
Gastrointestinal: Soft and Non Tender
Extremities: Other (LLE edema significantly decreased, erythema significantly decreased)
Neurological: AO x 3
Objective Data
Lab Data
Lab Results
10/20/24 07:08
10/21/24 05:31
Estimated Creat Clear 82 ml/min 10/21/24 05:31
Lactic Acid 1.1 mmol/L (0.7-2.0) 10/17/24 19:24
Total Bilirubin 0.8 mg/dl (0.2-1.3) 10/18/24 06:16
AST 23 U/L (14-36) 10/18/24 06:16
ALT 14 U/L (0-35) 10/18/24 06:16
Alkaline Phosphatase 121 U/L (38-126) 10/18/24 06:16
Most recent labs reviewed.
Micro Results:
10/20/24 13:09 MRSA Screen - Pending
Nose
[facility] No evidence of deep venous thrombosis in the left lower extremity
Care Review
Plan reviewed with: Physician (Dr. Parker)
[2024-10-21] MEDS: VISBIOME 2 CAP PO (11:26)
--- NOTE | 2024-10-21 12:46 | W.DCSUMMARY ---
Discharge Summary
Discharge Data
Date of Admission: 10/17/24
Date of Discharge: 10/21/24
-
Pending Results: No
Hospital Course
Ms. Sullivan is a 74-year-old female with a medical history of left TKR (with presumed PJI, on chronic suppressive doxycycline), MRSA infection, hypertension, DWAIN, melanoma (status post excision), and chronic anemia who presented with left lower
extremity pain and erythema. She was diagnosed with left leg cellulitis and started on vancomycin and given local wound care. She was evaluated by orthopedics who felt the infection did not appear to involve her knee joint. Her pain and erythema
improved with antibiotic treatment. She was encouraged to continue elevation and compression as able to avoid edema and further skin breaks that could become infected. She was monitored by infectious disease team while inpatient for antibiotic
guidance. They recommended transition to clindamycin 600 mg p.o. every 8 hours through 10/26/2024 for treatment of her left lower extremity cellulitis. After completing course of clindamycin, she should restart her home dose of doxycycline
indefinitely for ongoing suppressive therapy. At time of hospital discharge she was medically stable. She will need ongoing follow-up with her primary care physician and with her primary orthopedist as needed.
Gen-AAOx3, NAD
HEENT-NC, AT, anicteric, clear oral mm
Neck-supple
CV-reg, no M, +S1/S2
Lungs-clear B/L
Abd-soft, NT, ND
Musculoskeletal-left lower extremity edema, full range of motion
Skin-left lower extremity erythema and skin breaks
Neuro-grossly non-focal
Psych-calm, cooperative
Discharge Plan
-
Patient Disposition: Home (Routine Discharge)
Discharge Diagnosis/Procedures: Left leg cellulitis
Diet: Regular
Activity: As tolerated
Activity Restrictions/Additional Instructions:
Ms. Sullivan is a 74-year-old female with a medical history of left TKR (with presumed PJI, on chronic suppressive doxycycline), MRSA infection, hypertension, DWAIN, melanoma (status post excision), and chronic anemia who presented with left lower
extremity pain and erythema. She was diagnosed with left leg cellulitis and started on vancomycin and given local wound care. She was evaluated by orthopedics who felt the infection did not appear to involve her knee joint. Her pain and erythema
improved with antibiotic treatment. She was encouraged to continue elevation and compression as able to avoid edema and further skin breaks that could become infected. She was monitored by infectious disease team while inpatient for antibiotic
guidance. They recommended transition to clindamycin 600 mg p.o. every 8 hours through 10/26/2024 for treatment of her left lower extremity cellulitis. After completing course of clindamycin, she should restart her home dose of doxycycline
indefinitely for ongoing suppressive therapy. At time of hospital discharge she was medically stable. She will need ongoing follow-up with her primary care physician and with her primary orthopedist as needed.
Referrals:
Lopez Carrera MD [Family Provider] -
Prescriptions:
New
clindamycin HCl 300 mg capsule
600 mg PO TID 5 Days Qty: 30 0RF
Continued
venlafaxine [Effexor XR] 75 MG capsule,extended release 24hr
75 mg PO DAILY
Rx Instructions:
take with 150 mg for a total of 225 mg.
venlafaxine [Effexor XR] 150 mg Capsule,Extended Release 24hr
150 mg PO DAILY
Rx Instructions:
take with 75 mg for a total of 225 mg.
gabapentin 300 mg Capsule
1,200 mg PO HS
aspirin 81 mg Tablet,Delayed Release (Dr/Ec)
81 mg PO DAILY
lisinopril 20 mg Tablet
20 mg PO DAILY
pramipexole 1.5 mg Tablet
1.5 mg PO HS
Held
doxycycline hyclate 100 mg Capsule
100 mg PO BID
Hold Instructions: Restart on 10/27/2024 after completing course of clindamycin
Discharge Orders:
Discharge Patient (As Directed); Ordered 10/21/24
Ordered By: Javier Parker
Discharge Date and Time
Print Language: DANISH
--- NOTE | 2024-10-21 13:25 | CM ---
patient seen at bedside with
IMM explained & signed. In chart
PLAN: Home, return to outpatient therapy at
to transport
[2024-10-21 13:53] VITALS: BP 120/68
== END 2024-10-21 14:16 | disposition home or self-care (01) | DRG 603 ==
LOC: 2 NORTH 21:12
PROVIDERS: Internal Medicine; ADMITTING PHYSICIAN Hospitalist; ATTENDING PHYSICIAN Internal Medicine; CONSULT PHYSICIAN Internal Medicine Infectious Disease; CONSULT PHYSICIAN Orthopaedic Surgery; EMERGENCY PHYSICIAN Student in an Organized Health Care Education/Training Program; FAMILY PHYSICIAN Family Medicine
DX: L03.116 Cellulitis of left lower limb (principal); Z86.14 Personal history of Methicillin resistant Staphylococcus aureus infection; G25.81 Restless legs syndrome; Z85.3 Personal history of malignant neoplasm of breast; F41.9 Anxiety disorder, unspecified; F32.A Depression, unspecified; G47.33 Obstructive sleep apnea (adult) (pediatric); E66.813 Obesity, class 3; Z68.39 Body mass index [BMI] 39.0-39.9, adult; I10 Essential (primary) hypertension; Z96.653 Presence of artificial knee joint, bilateral; Z85.820 Personal history of malignant melanoma of skin; G62.9 Polyneuropathy, unspecified; Z90.710 Acquired absence of both cervix and uterus; Z98.84 Bariatric surgery status; D50.9 Iron deficiency anemia, unspecified; Z79.899 Other long term (current) drug therapy; Z79.82 Long term (current) use of aspirin; Z88.0 Allergy status to penicillin; Z88.1 Allergy status to other antibiotic agents; Z88.2 Allergy status to sulfonamides
CPT/HCPCS: 73564; 80048; 80053; 80202; 82565; 82728; 83540; 83550; 83605; 84520; 85025; 85027; 87070; 87147; 93971; 96365; 97110; 99284

== ENCOUNTER 2024-10-24 14:23 | Emergency (ER) | payer MEDICARE, OTHER, SELFPAY ==
[2024-10-24 14:38] VITALS: BP 109/59
[2024-10-24 15:12] LABS: % Basophils 0.5 % (0-2); % Eosinophils 2.7 % (0-6); % Immature Granulocytes 0.5 % (0-0.5); % Lymphocytes 28.3 % (20.5-51.1); % Monocytes 7.8 % (1.7-9.3); % Neutrophils 60.2 % (42.2-75.2); Absolute Eosinophils 0.2 10^3/uL (0-0.7); Absolute Lymphocytes 1.8 10^3/uL (1.2-3.4); Absolute Monocytes 0.5 10^3/uL (0.1-0.6); Absolute Neutrophils 3.7 10^3/uL (1.4-6.5); Hematocrit 26.8 % (37.0-47.0); Hemoglobin 7.9 g/dL (12.0-16.0); Mean Corp Hgb Conc. 29.5 g/dL (33.0-37.0); Mean Corpuscular Hgb 19.8 pg (27.0-31.0); Mean Platelet Volume 8.7 fL (7.4-10.4); Nucleated Red Blood Cells % 0 %; Platelet Count 416 10^3/uL (130-400); Red Cell Dist. Width 21.5 % (11.5-14.5); White Blood Cell Count 6.2 10^3/uL (4.8-10.8)
[2024-10-24 15:22] LABS: ALT (SGPT) 18 U/L (0-35); AST (SGOT) 27 U/L (14-36); Albumin 3.6 g/dl (3.5-5.0); Alkaline Phosphatase 109 U/L (38-126); Blood Urea Nitrogen 22 mg/dl (7-17); Calcium 8.6 mg/dl (8.4-10.2); Carbon Dioxide 25 mmol/L (22-30); Chloride 105 mmol/L (98-107); Glucose 100 mg/dl (70-99); Potassium 4.8 mmol/L (3.5-5.1); Sodium 137 mmol/L (135-145); Total Bilirubin 0.6 mg/dl (0.2-1.3); Total Protein 6.9 g/dl (6.3-8.2); eGFR > 60.00
== END 2024-10-24 16:27 | disposition left against medical advice (07) ==
LOC: EMR 14:23
PROVIDERS: EMERGENCY PHYSICIAN Emergency Medicine
DX: L03.116 Cellulitis of left lower limb (principal); Z53.21 Procedure and treatment not carried out due to patient leaving prior to being seen by health care provider
CPT/HCPCS: 99281; 80053; 85025

== ENCOUNTER 2024-10-29 09:12 | Outpatient (RCR) | payer MEDICARE, OTHER, SELFPAY | END 2024-10-29 23:59 | disposition home or self-care (01) | LOC: RPT 09:12 | PROVIDERS: ATTENDING PHYSICIAN Family Medicine | DX: Z47.1 Aftercare following joint replacement surgery (principal); Z73.6 Limitation of activities due to disability; R26.89 Other abnormalities of gait and mobility; R20.0 Anesthesia of skin; Z96.652 Presence of left artificial knee joint | CPT/HCPCS: 97110; 97164 ==

== ENCOUNTER 2024-12-05 05:59 | Outpatient (RCR) | payer MEDICARE, OTHER, SELFPAY | END 2024-12-05 23:59 | disposition home or self-care (01) | LOC: RPT 05:59 | PROVIDERS: ATTENDING PHYSICIAN Internal Medicine Infectious Disease; FAMILY PHYSICIAN Family Medicine | DX: I89.0 Lymphedema, not elsewhere classified (principal); Z73.6 Limitation of activities due to disability | CPT/HCPCS: 97162; 97530; 97760 ==

== ENCOUNTER 2024-12-30 09:24 | Outpatient (RCR) | payer MEDICARE, OTHER, SELFPAY | END 2024-12-30 23:59 | disposition home or self-care (01) | LOC: RPT 09:24 | PROVIDERS: ATTENDING PHYSICIAN Internal Medicine Infectious Disease; FAMILY PHYSICIAN Family Medicine | DX: I89.0 Lymphedema, not elsewhere classified (principal); Z73.6 Limitation of activities due to disability; R26.2 Difficulty in walking, not elsewhere classified | CPT/HCPCS: 97530; 97763 ==

== ENCOUNTER 2025-03-05 11:26 | Outpatient (RCR) | payer MEDICARE, OTHER, SELFPAY | END 2025-03-05 23:59 | disposition home or self-care (01) | LOC: RPT 11:26 | PROVIDERS: ATTENDING PHYSICIAN Internal Medicine Infectious Disease; FAMILY PHYSICIAN Family Medicine | DX: I89.0 Lymphedema, not elsewhere classified (principal); Z73.6 Limitation of activities due to disability; R26.2 Difficulty in walking, not elsewhere classified | CPT/HCPCS: 97530 ==

== ENCOUNTER → 2025-05-20 10:02 | Outpatient (REF) | payer MEDICARE, OTHER, SELFPAY | LOC: RAD 10:02 | PROVIDERS: ATTENDING PHYSICIAN Family Medicine | DX: M79.605 Pain in left leg (principal); I82.402 Acute embolism and thrombosis of unspecified deep veins of left lower extremity | CPT/HCPCS: 73502; 73552; 73564; 73590; 93971 ==

== ENCOUNTER 2025-06-11 20:42 | Inpatient (IN) | payer MEDICARE, OTHER, SELFPAY ==
[2025-06-11 15:25] VITALS: BP 151/63
--- NOTE | 2025-06-11 16:00 | ED.GENMED ---
History of Present Illness
<JAIRO Ahn - Last Filed: 06/11/25 19:22>
General
Chief Complaint: Skin Problem
Source: patient
Exam Limitations: none
Time Seen by Provider: 06/11/25 15:56
Nursing documentation reviewed up to this point in time: agreed with
History of Present Illness
History of Present Illness:
75-year-old female past medical history of left total knee replacement, MRSA hypertension chronic anemia on daily doxycycline presents to the ER for increasing redness swelling drainage to her left leg. Ever since she had a knee replacement 2 years
ago she has had chronic cellulitis. She presents today however because of increasing pain and redness and swelling. She reports it is draining. Patient also reports for the past 2 days she has had redness and discoloration of her arms. She denies
any fevers. She is not on blood thinners. she reports arms are itchy.
Past History
<JAIRO Ahn - Last Filed: 06/11/25 19:22>
Past History
ED Past Medical History: Cancer (breast ca - tx'd with radiation & lumpectomy, disease free since last year, Skin CA), HTN, Psychiatric (Depression), Other (Restless leg syndrome,PNA, Sleep apnea, Anemia, ) and Other (Acute Renal Failure)
ED Past Surgical History: Bowel resection (Gastric bypass), Gynecological (Hysterectomy), Orthopedic (Bilateral carpal tunnel , Left and right knee replacement, Repair fracture Left femur, ) and Other (Gastric bypass, Prolapsed rectum repair, )
Social History
Tobacco: Non-smoker
Alcohol: None
Personal:
Living: with family
Family History
Family History: Negative Diabetes, Hypertension or CAD
Phy Exam
<JAIRO Ahn - Last Filed: 06/11/25 19:22>
General Physical Exam
General Presentation: no apparent distress
General age: appears stated age
General Skin: warm and dry
General Habitus: normal
General Mental: alert
Neurological Exam
Neurological Exam: alert and oriented x3
Musculoskeletal Exam
Musculoskeletal Exam: other (Bilateral lower extremity swelling left lower leg with circumferential swelling thickened skin redness warmth drainage;b/l arms with mild redness small amt of ecchymosis)
Course
<JAIRO Ahn - Last Filed: 06/11/25 19:22>
Orders/Labs/Results
Orders:
Orders
06/11/25 16:14
IV Insert/Care/Rem.- Treatment PRN
06/11/25 16:42
Basic Metabolic Panel Urgent
Complete Blood Count/With Diff Urgent
06/11/25 18:59
Vancomycin [Vancocin] 2,000 mg 0.9% Sodium Chloride 500 ml [Nss] 500 ml IV NOW
Abnormal Lab Results
06/11/25
16:42
Hgb 10.3 L g/dL
(12.0-16.0)
Hct 31.7 L %
(37.0-47.0)
MCV 75.5 L fL
(81.0-99.0)
MCH 24.5 L pg
(27.0-31.0)
MCHC 32.5 L g/dL
(33.0-37.0)
RDW 17.3 H %
(11.5-14.5)
Abs Immat Gran (auto) 0.1 H 10^3/uL
(0-0.05)
Absolute Monos (auto) 1.0 H 10^3/uL
(0.1-0.6)
Immature Gran % 0.9 H %
(0-0.5)
Monocytes % 13.5 H %
(1.7-9.3)
Chloride 108 H mmol/L
(98-107)
BUN 21 H mg/dl
(7-17)
Creatinine 0.4 L mg/dL
(0.6-1.0)
Calcium 8.1 L mg/dl
(8.4-10.2)
06/11/25 16:42
06/11/25 16:42
Vital Signs
Initial and Last Documented VS:
Initial Vital Signs
Temp Pulse Resp BP Pulse Ox
98.6 F 94 18 151/63 100
06/11/25 15:25 06/11/25 15:25 06/11/25 15:25 06/11/25 15:25 06/11/25 15:25
Last Documented Vital Signs
Temp Pulse Resp BP Pulse Ox
98.6 F 94 18 151/63 98
06/11/25 15:25 06/11/25 15:25 06/11/25 15:25 06/11/25 15:25 06/11/25 16:32
Crislt;Ramiro Cruz DO - Last Filed: 06/11/25 18:53>
Orders/Labs/Results
Orders:
Orders
06/11/25 16:14
IV Insert/Care/Rem.- Treatment PRN
06/11/25 16:42
Basic Metabolic Panel Urgent
Complete Blood Count/With Diff Urgent
06/11/25 18:59
Vancomycin [Vancocin] 2,000 mg 0.9% Sodium Chloride 500 ml [Nss] 500 ml IV NOW
Abnormal Lab Results
06/11/25
16:42
Hgb 10.3 L g/dL
(12.0-16.0)
Hct 31.7 L %
(37.0-47.0)
MCV 75.5 L fL
(81.0-99.0)
MCH 24.5 L pg
(27.0-31.0)
MCHC 32.5 L g/dL
(33.0-37.0)
RDW 17.3 H %
(11.5-14.5)
Abs Immat Gran (auto) 0.1 H 10^3/uL
(0-0.05)
Absolute Monos (auto) 1.0 H 10^3/uL
(0.1-0.6)
Immature Gran % 0.9 H %
(0-0.5)
Monocytes % 13.5 H %
(1.7-9.3)
Chloride 108 H mmol/L
(98-107)
BUN 21 H mg/dl
(7-17)
Creatinine 0.4 L mg/dL
(0.6-1.0)
Calcium 8.1 L mg/dl
(8.4-10.2)
06/11/25 16:42
06/11/25 16:42
Vital Signs
Initial and Last Documented VS:
Initial Vital Signs
Temp Pulse Resp BP Pulse Ox
98.6 F 94 18 151/63 100
06/11/25 15:25 06/11/25 15:25 06/11/25 15:25 06/11/25 15:25 06/11/25 15:25
Last Documented Vital Signs
Temp Pulse Resp BP Pulse Ox
98.6 F 94 18 151/63 98
06/11/25 15:25 06/11/25 15:25 06/11/25 15:25 06/11/25 15:25 06/11/25 16:32
<JAIRO Ahn - Last Filed: 06/11/25 19:22>
MDM/Problems Addressed
Differential Diagnosis Includes:
not limited to : cellulitis
MDM/Problems Addressed:
Patient presents with increasing pain swelling redness of left leg. She has had chronic issues with cellulitis and is maintained on chronic doxycycline however recently has noted increasing redness drainage. She denies any fevers. On exam she has
circumferential redness that is warm. On initial exam she had obvious drainage/weeping her sock was saturated. Her white count is elevated.
Case discussed with DR Cruz who evaluated pt.
Will require admission for antibiotics
Chronic conditions affecting care:
hx of MRSA in the past , chronic cellulitis
<JAIRO Ahn - Last Filed: 06/11/25 19:22>
*Pulse Oximetry
SaO2: 100
Oxygen Mode of Delivery: Room air
Patient hypoxic: no
*Critical Care Note
Total Time (30-74mins, 75-104mins- exclusive of procedures): Not Applicable
ED Attending Note
<JAIRO Ahn - Last Filed: 06/11/25 19:22>
-
Portions of this chart may have been created with voice recognition software.� Occasional wrong word or��sound alike� substitutions may have occurred due to the inherent limitations of voice recognition software.
<Ramiro Cruz DO - Last Filed: 06/11/25 18:53>
ED Attending Note
Patient seen and examined by attending physician: Yes
I performed the substantive portion of visit, reviewed & personally made and approve the management plan that is documented in note by myself or DONG.: Yes
ED Attending Note:
I agree with Marcelina's note
Patient presents with increased redness and pain in her lower extremities particular the left. She is notes that the level of redness is markedly different than normal. She is also noticing some changes in her right lower extremity. No fever or
chills. No nausea vomiting
Left lower extremity has marked erythema and swelling. Swelling probably baseline but erythema seems quite angry. Her leg is tender.
Right lower extremity has significant erythema around the ankle and foot.
Patient is on chronic Doxy for cellulitis. Given his acute change we will hospitalize for IV antibiotics in the form of vancomycin.
Discharge Plan
Departure
Patient Disposition: Admit
Date of Disposition: 06/11/25
Time of Disposition: 18:57
Admit to: Med/Surg
Admit to doctor: hospitalist
Presentation/result/management discussed w/ accepting MD/DO: Hospitalist
Patient with high blood pressure during this ER visit?: Yes
Condition: Fair
Covid-19: Not Applicable
Discharge Problem:
Cellulitis of left leg
Prescriptions:
No Action
venlafaxine [Effexor XR] 75 MG capsule,extended release 24hr
75 mg PO DAILY
Rx Instructions:
take with 150 mg for a total of 225 mg.
venlafaxine [Effexor XR] 150 mg Capsule,Extended Release 24hr
150 mg PO DAILY
Rx Instructions:
take with 75 mg for a total of 225 mg.
gabapentin 300 mg Capsule
1,200 mg PO HS
aspirin 81 mg Tablet,Delayed Release (Dr/Ec)
81 mg PO DAILY
doxycycline hyclate 100 mg Capsule
100 mg PO BID
lisinopril 20 mg Tablet
20 mg PO DAILY
pramipexole 1.5 mg Tablet
1.5 mg PO HS
clindamycin HCl 300 mg capsule
600 mg PO TID 5 Days Qty: 30 0RF
Referrals:
Lopez Carrera MD [Family Provider, Family Practice]
Interventions
Interventions:
*Risk Screen - Suicide Last Done: 06/11/25 15:25
*General Assessment Last Done: 06/11/25 15:25
*Neglect/Abuse Screening Last Done: 06/11/25 16:35
*ED COVID-19 Vaccine History Last Done: 06/11/25 15:25
*ED Influenza Vaccine History Last Done: 06/11/25 15:25
Discharge Date and Time
Print Language: PERUVIAN
[2025-06-11 16:27] VITALS: BMI 45.6
[2025-06-11 17:03] LABS: Hematocrit 31.7 % (37.0-47.0); Hemoglobin 10.3 g/dL (12.0-16.0); Mean Corp Hgb Conc. 32.5 g/dL (33.0-37.0); Mean Corpuscular Volume 75.5 fL (81.0-99.0); Nucleated Red Blood Cells % 0 %; Red Cell Dist. Width 17.3 % (11.5-14.5)
[2025-06-11 17:05] LABS: Blood Urea Nitrogen 21 mg/dl (7-17); Calcium 8.1 mg/dl (8.4-10.2); Carbon Dioxide 23 mmol/L (22-30); Chloride 108 mmol/L (98-107); Estimated Creatinine Clearance 81 ml/min; Glucose 87 mg/dl (70-99); Sodium 136 mmol/L (135-145); eGFR > 60.00
[2025-06-11] MEDS: VANCOCIN 540 MG IV (19:27)
--- NOTE | 2025-06-11 20:34 | HPS.HSE ---
Family Physician
-
Family Physician: Lopez Carrera
Chief Complaint
-
LLE Pain / redness
History of Present Illness
Patient is a 75y F with PMH significant for hypertension, peripheral neuropathy and chronic L TKA PJI who presents to ED complaining of LLE pain, swelling, redness and oozing drainage. Patient originally underwent L TKA at [facility] in October
2022. She had subsequent periprosthetic fracture requiring repair. She developed a L knee abscess in October 2023 which was positive for MRSA. She underwent I&D and had very slow wound healing (inferior to knee) following this. She underwent skin
grafts, etc with limited improvement. Patient was hospitalized for sepsis in May 2024. The source of this was not entirely clear - but was presumed to be related to the LLE / possible chronic PJI. Patient has been maintained on suppression
dose doxycycline 100mg daily since that time. She was most recently hospitalized here in October of this year with 'flare' of cellulitis and treated with Vancomycin during her stay.
Patient complains of increased pain, swelling, redness, skin changes, etc x several months.
Patient notes that she has been followed by Dermatology - Dr. Anders for her chronic skin changes. She reportedly had a recent skin culture that was positive for MRSA.
Patient was seen recently for a second opinion by Dr. Strong of [facility]. He did not see evidence of joint infection / abscess. An aspiration was performed - cultures from which are reportedly negative to date.
She has been increasingly concerned with her symptoms. She presented to [facility] ED last week where she was evaluated and discharged for outpatient follow-up.
Patient states that she was referred to ID here at and she presented to the ED this evening for further evaluation.
She denies any systemic complaints including fevers / chills, N/V/D, etc.
Medical History
Past Medical History
Past Medical History: Reports Other
Additional Past Medical History:
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
Chronic Venous Stasis Dermatitis
Hypertension
Restless Leg Syndrome
Peripheral Neuropathy
Iron Deficiency Anemia
Breast Cancer s/p Surgery and XRT
Obesity s/p Gastric Bypass
Anxiety / Depression
Past Surgical History: Reports Other
Additional Past Surgical History:
Justin-en-Y Bypass
Right Lumpectomy
Carpal Tunnel Surgery
Bilateral TKA
Left Knee I&D
Social History
Tobacco: Non-smoker
Alcohol: None
Drug: None
Family History
Family History: Not pertinent
Allergies / Home Medications
Allergies reflects when Allergies were last updated in [facility].
Home Medications with original date entered in [facility]
Allergy/Medication List:
Allergies
Allergy/AdvReac Type Severity Reaction Status Date / Time
adhesive tape (Adhesive Tape) Allergy Rash Verified 06/11/25 15:29
Cephalosporins Allergy Unknown Verified 06/11/25 15:29
latex (Latex) Allergy Unknown Verified 06/11/25 15:29
Penicillins Allergy trouble Verified 06/11/25 15:29
breathing
Sulfa (Sulfonamide Allergy Rash Verified 06/11/25 15:29
Antibiotics)
sulfamethoxazole Allergy Rash Verified 06/11/25 15:29
trimethoprim Allergy Rash Verified 06/11/25 15:29
Home Medications
venlafaxine 75 mg capsule,extended release 24 hr (Effexor XR) 75 mg PO DAILY Depression 02/05/11
venlafaxine 150 mg capsule,extended release 24 hr (Effexor XR) 150 mg PO DAILY Depression 07/07/23
aspirin 81 mg tablet,delayed release 81 mg PO DAILY Blood Clot Prevention/Tx 05/17/24
lisinopril 20 mg tablet 20 mg PO DAILY 10/17/24
pramipexole 1.5 mg tablet 1.5 mg PO HS 10/17/24
doxycycline hyclate 100 mg capsule 100 mg PO BID 06/11/25
Review of Systems
-
History Source: Patient
A 12 point ROS was completed and negative except as noted: Yes
Constitutional: Reports Fatigue; Denies Fever or Chills
Respiratory: Denies Cough or Trouble Breathing
Cardiac: Denies Chest Pain or Palpitations
Abdomen/GI: Denies Abdominal Pain, Nausea, Vomiting or Diarrhea
: Denies Dysuria or Flank Pain
Musculoskeletal: Reports Joint Pain, Joint Swelling and Edema
Skin: Reports Itching and Rash
Neurological: Reports Weakness; Denies Dizzy or Headache
Psych: Denies Depression or Anxiety
Physical Exam
Vital Signs
Vital Signs
Temp Pulse Resp BP Pulse Ox
98.6 F 94 18 151/63 98
06/11/25 15:25 06/11/25 15:25 06/11/25 15:25 06/11/25 15:25 06/11/25 16:32
Physical Exam
General: Other (75y F in no acute distress.)
HEENT: Moist mucous membranes and PERRLA
Respiratory: Clear; No Wheezes, Rales or Rhonchi
Cardiac: S1/S2, Regular Rhythm and Murmur (II/ YUE)
GI: Soft, Non Tender, Non Distended and Normal Bowel Sounds
Musculoskeletal: No Clubbing and No Cyanosis
Skin: Other (Erythematous, scaly skin changes from the L knee to the foot. No pustules / open wounds. Not significantly warm. Pos tenderness. Similar / less extensive skin changes on the R lower leg and L forearm.)
Neuro: AO x 3
Laboratory Results
-
06/11/25 16:42
06/11/25 16:42
Laboratory Results
Total Bilirubin Cancelled 06/11/25 16:42
AST Cancelled 06/11/25 16:42
ALT Cancelled 06/11/25 16:42
Alkaline Phosphatase Cancelled 06/11/25 16:42
Impression/Plan
-
A/P: Patient is a 75y F with PMH significant for hypertension, depression and chronic L knee PJI who presents to ED complaining of chronic skin changes, pain and swelling of the LLE.
LLE Skin Changes +/- Cellulitis
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
h/o MRSA
- Admit for further evaluation and treatment.
- 0/4 SIRS criteria. Not clear that there is any acute change here.
- History of chronic infection with recent evaluations as an outpatient by Ortho and Derm.
- Send for OP records / culture data. ? if any biopsy has been done by Derm - ? more autoimmune / inflammatory than infectious?
- Continue IV Vanco for now.
- Wound Care evaluation for topical / local therapies.
- ID consulted for additional recommendations.
- PT evaluation for deconditioning / gait issues since initial TKA in 2022.
Iron Deficiency Anemia
- Stable. Hgb is at / near known baseline.
- Continue PO iron supplementation.
- Check iron studies.
Benign Hypertension
- Stable. Continue lisinopril.
Depression
- Stable. Continue venlafaxine.
RLS
Peripheral Neuropathy
- Patient notes that she discontinued gabapentin about one month ago as she 'read some bad things about it'.
- This may be related to recent perceived increase in pain. Would resume 100mg TID and titrate as needed.
- Continue Mirapex.
DVT Prophylaxis: Lovenox
Code Status: Full
--- NOTE | 2025-06-11 21:38 | PHA.VAN.IN ---
Addendum entered and electronically signed by Doris López RPH 06/12/25 08:30:
Additional information on prior dosing experience:
Vancomycin 1000mg Q12 provided the following patient-specific PK:
Cmax: 29 mcg/ml
Cmin: 18 mcg/ml
AUC: 554
half-life: 15.9 H
Vd = 82.6 L
Vanc Cl = 60 ml/min
Based on prolonged half-life, patient may not fully have been had steady state and additional accumulation would be expected.
Since Cmin / Trough was at higher end of therapeutic range and half-life > dosing interval, regimen was preemptively changed to Q24H dosing interval
Original Note:
Assessment
- Assessment
Renal Function: Appears similar to baseline
Historical Micro: History of MRSA infection
- Previous Dosing Experience
Previous Regimen: 1000 mg IV BID
Date of Regimen: 10/18/24-10/21/24
Provided Trough of: 18.6
Patient's SCR is: Decreased compared to previous dosing experience
AUC Dosing Plan
- Empiric Dosing
Initial / Loading Dose: 2000 mg x 1 @ 1927
Maintenance Regimen: 1000 mg IV BID
Estimated AUC (mcg*h/mL): 417
Estimated Peak (mcg*h/mL): 25.0
Estimated Trough (mcg/ml): 11.4
Estimated Half Life (H): 9.7
- Monitoring
No levels ordered at this time: level to be ordered on follow-up
Pharmacokinetics Vancomycin I
- -
Patient Age: 75
Patient Sex: Female
Vancomycin Day #: 1
Indication: Skin And Soft Tissue
Requesting Provider: Cameron Narvaez DO
Pertinent Antimicrobial Allergies:
cephalosporins, penicillins
Height / Weight:
Height 4 ft 10 in
Actual Weight 99 kg
Pertinent Past Medical History: MRSA + wound culture in 11/03 and nasal screen 11/04
- Vital Signs / Lab Results
Temp Pulse Resp BP Pulse Ox
98.6 F 94 18 151/63 98
06/11/25 15:25 06/11/25 15:25 06/11/25 15:25 06/11/25 15:25 06/11/25 16:32
Lab Results - Hematology
06/11/25
16:42
WBC 7.6
Lab Results - Chemistry
06/11/25
16:42
BUN 21 H
Creatinine 0.4 L
Estimated Creat Clear 81
Albumin Cancelled
[2025-06-11 22:03] VITALS: BP 137/87
[2025-06-11 22:04] VITALS: BP 137/87
[2025-06-11] MEDS: MIRAPEX, GENERIC 1.5 MG PO (22:04)
[2025-06-11] MEDS: NEURONTIN 100 MG PO (22:05)
[2025-06-11 23:23] VITALS: BP 132/52
[2025-06-12 00:24] LABS: Iron 25 ug/dl (37-170)
[2025-06-12 00:27] LABS: C-Reactive Protein 36.10 mg/L (0.0-10.00)
[2025-06-12 00:34] LABS: Total Iron Binding Capacity 310 ug/dl (265-497)
[2025-06-12 06:23] LABS: Hematocrit 32.3 % (37.0-47.0); Hemoglobin 10.1 g/dL (12.0-16.0); Mean Corp Hgb Conc. 31.3 g/dL (33.0-37.0); Mean Corpuscular Volume 76.7 fL (81.0-99.0); Platelet Count 327 10^3/uL (130-400); Red Cell Dist. Width 17.5 % (11.5-14.5)
[2025-06-12] MEDS: VANCOCIN 200 IV (06:37)
[2025-06-12 06:45] LABS: Blood Urea Nitrogen 16 mg/dl (7-17); Calcium 8.6 mg/dl (8.4-10.2); Carbon Dioxide 26 mmol/L (22-30); Chloride 107 mmol/L (98-107); Estimated Creatinine Clearance 81 ml/min; Glucose 97 mg/dl (70-99); Potassium 5.1 mmol/L (3.5-5.1); Sodium 135 mmol/L (135-145); eGFR > 60.00
[2025-06-12 07:02] VITALS: BP 163/63
--- NOTE | 2025-06-12 08:20 | PHA.VAN.FU ---
Vancomycin Assessment / Plan
- Assessment
Renal Function: Stable
WBC's are: WNL
In the past 24 hrs, patient has been: Afebrile
- Dosing Plan
Adjust Regimen to: Vanc 1500mg Q24H based on prior dosing experience
Dosing Comments: patient with prior prolonged half-life
- Monitoring Plan
No level(s) ordered at this time: consider levels in next few days
- Follow Up
Pharmacy will continue to follow.
Vancomycin Follow UP
- -
Patient Age: 75
Patient Sex: Female
Vancomycin Day #: 2
Indication: Skin And Soft Tissue
Requesting Provider: Cameron Narvaez DO
Pertinent Antimicrobial Allergies:
cephalosporins - unknown
penicillins - trouble breathing
sulfonamide antibiotics - rash
Height / Weight:
Height 4 ft 10 in
Actual Weight 99 kg
Pertinent Past Medical History: BMI ~46, chronic L knee PJI
- Vital Signs / Lab Results
Temp Pulse Resp BP Pulse Ox
98.1 F 98 16 163/63 99
06/12/25 07:02 06/12/25 07:02 06/12/25 07:02 06/12/25 07:02 06/12/25 07:02
Lab Results - Hematology
06/11/25 06/12/25
16:42 06:09
WBC 7.6 8.0
Lab Results - Chemistry
06/11/25 06/12/25
16:42 06:09
BUN 21 H 16
Creatinine 0.4 L 0.4 L
Estimated Creat Clear 81 81
Albumin Cancelled
[2025-06-12] MEDS: EFFEXOR XR 75 MG PO (08:34)
[2025-06-12] MEDS: ZESTRIL 20 MG PO (08:34)
[2025-06-12] MEDS: EFFEXOR XR 150 MG PO (08:34)
[2025-06-12] MEDS: FEOSOL 325 MG PO ×2 (08:34→21:05)
[2025-06-12] MEDS: NEURONTIN 100 MG PO ×3 (08:34→21:05)
[2025-06-12] MEDS: TYLENOL 650 MG PO ×2 (08:40→21:04)
--- NOTE | 2025-06-12 09:52 | W.PN.HOSP.TC ---
Today's Communication/Plan
-
IV Vancomycin
ID Consult
Assessment / Plan
Assessment / Plan
A/P: Patient is a 75y F with PMH significant for hypertension, depression and chronic L knee PJI who presents to ED complaining of chronic skin changes, pain and swelling of the LLE.
LLE Skin Changes +/- Cellulitis
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
h/o MRSA
- Admit for further evaluation and treatment.
- History of chronic infection with recent evaluations as an outpatient by Ortho and Derm.
- Send for OP records / culture data. ? if any biopsy has been done by Derm ?
- Continue IV Vanco
- Wound Care evaluation for topical / local therapies.
- ID consulted for additional recommendations.
- PT evaluation for deconditioning / gait issues since initial TKA in 2022.
Iron Deficiency Anemia
- Stable. Hgb is at / near known baseline.
- Continue PO iron supplementation.
- Check iron studies.
Benign Hypertension
- Stable. Continue lisinopril.
Depression
- Stable. Continue venlafaxine.
RLS
Peripheral Neuropathy
- Patient notes that she discontinued gabapentin about one month ago as she 'read some bad things about it'.
- This may be related to recent perceived increase in pain. Would resume 100mg TID and titrate as needed.
- Continue Mirapex.
DVT Prophylaxis: Lovenox
Code Status: Full
Anticipated Discharge: 24 - 48 hours
Subjective/Interval History
-
Date of Service: June 12, 2025
left leg remains red and swollen
she has had multiple recent US
Objective Data
-
Labs:
Laboratory Results
06/12/25
06:09
WBC 8.0
Hgb 10.1 L
Hct 32.3 L
Plt Count 327
Sodium 135
Potassium 5.1
Chloride 107
Carbon Dioxide 26
BUN 16
Creatinine 0.4 L
Glucose 97
Calcium 8.6
Vital Signs:
Vital Signs
Temp Pulse Resp BP Pulse Ox
98.1 F 98 16 163/63 99
06/12/25 07:02 06/12/25 07:02 06/12/25 07:02 06/12/25 08:34 06/12/25 07:02
I&O
06/11/25 06/12/25 06/13/25
06:59 06:59 06:59
Intake Total 440 / 440
Balance 440 / 440
Review of Systems
-
History Source: Patient
All other systems: Reviewed and negative
Physical Exam
-
General: No Apparent Distress
Respiratory: Clear to Auscultation; Negative Wheezes
Cardiac: Regular Rhythm and S1/S2
GI: Soft and Nontender
Musculoskeletal: Other (LLE erythematous, warm and swollen )
Skin: Warm and Dry; Negative Rash
Neuro: AO x 3
Psych: Calm
Data Reviewed
-
Diagnostic Radiology: Report Reviewed by me
Labs: Labs Reviewed by me
--- NOTE | 2025-06-12 11:09 | CM ---
Addendum entered by Kirsten Flores 06/12/25 11:15:
DME: rolling walker, cane, wheelchair, lymphedema pumps and compression stockings
Original Note:
Chart reviewed and spoke with patient and Frank at bedside
Lives with in 2 story home. 4 LILY with bilateral rails. Powder room on first floor
Ambulating with walker, drives her to appt and assist with wound care
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 4 adult kids ; [facility], [place], [place] and [place]
2 Sisters are living in [facility] and [place] and able to assist as needed
PCP Torsten Carrera
RX plan yes
Pharmacy [facility] in [place]
hx of [facility] for RN and PT in the past
no hx of SNF
Seen by PT this am and recommended discharge location is home with services vs outpatient per PT
Pt states that can provide transportation at the time of discharge
CM will continue to follow up for any dcp needs
--- NOTE | 2025-06-12 13:15 | WOUNDNOTE ---
RIGHT LOWER ARM
--- NOTE | 2025-06-12 13:18 | WOUNDNOTE ---
[facility] RN NOTE: Reviewed chart and met with patient. Patient reports increased pain in LE over the past few weeks. Patient also admits to stopping Gabapentin a few weeks ago because she heard some bad things about it. Upon further discussion, patient
expressed that she can now see how her pain in LE has increased since stopping the Gabapentin. Patient has since decided to restart Gabapentin and took it this morning. Dr. Lemos and Dr. Cronin made aware of Gabapentin use conversation. LE appear to
have venous stasis changes. Patient now noticing more changes to the right leg, where in the past the left leg has been worse. Patient reports using lymphedema pumps and compression wraps at home. Will recommend Mineral Oil to legs and LINDSAY wraps.
Orders confirmed with Doctor Aminta. LINDA Nino given update. Will sign off.
--- NOTE | 2025-06-12 13:44 | CON.ID ---
Consultation
-
Date/Time Consultation Requested: June 10, 2025 2203
Date/Time Consultation Performed: June 12, 2025 1350
Requesting Provider: Dr. Eduardo Narvaez
Performing Provider: Dr. Sindhu Sandoval
Reason for Consultation: 'chronic cellulitis'
Chief Complaint / Past History
Chief Complaint
Left leg pain and weeping. rash on R leg
History of Present Illness
Nicolle Sullivan is a 75-year-old female being evaluated at the request of Dr. Clark for recurrent cellulitis. is at bedside. The patient has a history of lymphedema left TKA in 05/[address] Sahu, periprosthetic fracture with large
suprapatellar joint effusion s/p left TKA partial revision and sumeet placement in August 2023, MRSA abscess left distal knee s/p drainage October 2023 on suppressive doxycycline for probable PJI, recurrent LLE cellulitis who presented to ED last night
due to LLE edema, worsening erythema. About 3 weeks ago, pt developed worsening left leg edema, redness and weepage. She saw her manager of organizational development who cultured the drainage which was positive for MRSA. Patient prescribed topical gentamicin. However
leg has not improved. She then noted pruritic red lesions started on her right calderon about 2 weeks ago. 2 days ago she also noted pruritic dark spots on her arms. She denies new medications except for the past gentamicin. She also often uses
different types and brands of moisturizer creams and recently started using Gold Muse. No fevers or chills. She goes to lymphedema PT. She is currently on vancomycin. She reports LLE edema improving. She continues to follow with orthopedic for
the left knee prosthesis. On June 08, she had aspiration of the knee with minimal output and culture was negative.
Past History
Additional Past Medical History:
HTN
Restless leg syndrome
Hx breast CA (s/p lumpectomy, XRT)
Anxiety/depression
DWAIN
L>R LE lymphedema - goes to lymphedema clinic
Class III obesity BMI of 46
(L) TKR (05/2023; [facility]; subsequent periprosthetic fracture s/p partial revision, sumeet placement (08/2023)
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
Right TKR (2012)
Gastric bypass
Melanoma excision of left calderon
NAN
Allergy History:
adhesive tape (Adhesive Tape) Allergy (Verified 06/11/25 15:29)
Rash
Cephalosporins Allergy (Verified 06/11/25 15:29)
Unknown
latex (Latex) Allergy (Verified 06/11/25 15:29)
Unknown
Penicillins Allergy (Verified 06/11/25 15:29)
trouble breathing
Sulfa (Sulfonamide Antibiotics) Allergy (Verified 06/11/25 15:29)
Rash
sulfamethoxazole Allergy (Verified 06/11/25 15:29)
Rash
trimethoprim Allergy (Verified 06/11/25 15:29)
Rash
Medications Reviewed: Yes
Current Antibiotics:
Vancomycin
Social History
Tobacco: Non-Smoker
Alcohol: None
Drug: None
Personal:
Living: With Family
Employment: Not Employed
Family History
Family History: Not Pertinent
Review of Systems
Review of Systems
General: Negative Fever, Chills or Change in Appetite
HEENT: Negative Sinus Problems or Headache
Cardiovascular: Negative Chest Pain or Dyspnea
Respiratory: Negative Dyspnea or Cough
Genital / Urological: Negative Dysuria or Flank Pain
Endocrine: Negative Weakness
All systems: All other systems were reviewed and were negative
Vital Signs
Temp Pulse Resp BP Pulse Ox
98.1 F 98 16 163/63 99
06/12/25 07:02 06/12/25 07:02 06/12/25 07:02 06/12/25 08:34 06/12/25 07:02
Physical Exam
Physical Exam
Constitutional: No Acute Distress, Comfortable and Obese
Eyes: No Conjunctival Hemorrhage and Sclera Anicteric
Pulmonary: Clear
Gastrointestinal: Soft, Non Tender, Non Distended and Normal Bowel Sounds
Extremities: Edema (LLE >>RLE lymphedema), Erythema (LLE foot to below knee, + warmth) and Venous Insufficiency (LLE)
Musculoskeletal: Negative Joint Effusion (left knee)
Skin: Dry (Extremely dry skin LLE with fissures/cracks on ankle. ) and Rash (RLE erythmatous plaques with peeling skin on distal calderon. BUE purplish macules on forearms.)
Neurological: AO x 3
Lab / Diagnostic Study Results
06/12/25 06:09
06/12/25 06:09
Abs Immat Gran (auto) 0.1 10^3/uL (0-0.05) H 06/11/25 16:42
Absolute Neuts (auto) 3.9 10^3/uL (1.4-6.5) 06/11/25 16:42
Absolute Lymphs (auto) 2.5 10^3/uL (1.2-3.4) 06/11/25 16:42
Absolute Monos (auto) 1.0 10^3/uL (0.1-0.6) H 06/11/25 16:42
Absolute Basos (auto) 0.0 10^3/uL (0-0.2) 06/11/25 16:42
Immature Gran % 0.9 % (0-0.5) H 06/11/25 16:42
Neutrophils % 50.4 % (42.2-75.2) 06/11/25 16:42
Lymphocytes % 33.1 % (20.5-51.1) 06/11/25 16:42
Monocytes % 13.5 % (1.7-9.3) H 06/11/25 16:42
Eosinophils % 1.6 % (0-6) 06/11/25 16:42
Basophils % 0.5 % (0-2) 06/11/25 16:42
ESR 71 mm/hour (0-20) H 06/11/25 23:12
C-Reactive Protein 36.10 mg/L (0.0-10.00) H 06/11/25 23:12
Microbiology Results
Micro:
06/11/25 23:53 Blood Culture - Pending
Blood/Venous
06/11/25 23:12 Blood Culture - Pending
Blood/Venous
Assessment / Plan
# LLE cellulitis
. Outside cx MRSA R to tetracycline, clinda, T/sulfa, FQ
# Lymphema, venous stasis
# Abx allergies: PCN, T/sulfa
- Moisturize LE with Lachydrin bid
- LINDSAY-Wrap compression
- Replace Vancomycin with Daptomycin due to obesity and easier dosing. Check CK in am.
Of note, unable to use po linezolid due to interaction with venlafaxine
# Pruritc rash/lesion on RLE, BUE
- suspect contact dermatitis
early venous stasis dermatitis of RLE also possible
- Benadryl prn
#(L) TKR (05/2023; [facility]; subsequent periprosthetic fracture s/p partial revision, sumeet placement (08/2023)
# hx L distal knee (MRSA) abscess s/p drainage 10/2023 at [place], on doxycycline suppressive therapy for probable left knee PJI
-hold suppressive doxycycline while on Daptomycin.
- Of note, 06/08 synovial fluid neg.
#Conditions present on admission:
HTN
Restless leg syndrome
Hx breast CA (s/p lumpectomy, XRT)
Anxiety/depression
DWAIN
L>R LE lymphedema - goes to lymphedema clinic
Class III obesity BMI of 46
(L) TKR (05/2023; [facility]; subsequent periprosthetic fracture s/p partial revision, sumeet placement (08/2023)
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
Right TKR (2012)
Gastric bypass
Melanoma excision of left calderon
NAN
[2025-06-12 14:38] VITALS: BP 118/55; BMI 45.0
[2025-06-12] MEDS: LAC HYDRIN, AM LACTIN LOTION 1 APPLIC TOPICAL ×2 (15:51→21:06)
[2025-06-12] MEDS: LOVENOX 40 MG SC (16:34)
[2025-06-12] MEDS: CUBICIN 10 MG IV (16:34)
[2025-06-12] MEDS: MIRAPEX, GENERIC 1.5 MG PO (21:04)
[2025-06-12] MEDS: BENADRYL 25 MG PO (21:04)
[2025-06-13 00:09] VITALS: BP 143/70
[2025-06-13 07:45] VITALS: BP 140/66
[2025-06-13] MEDS: ZESTRIL 20 MG PO (08:35)
[2025-06-13] MEDS: NEURONTIN 100 MG PO ×3 (08:35→21:15)
[2025-06-13] MEDS: EFFEXOR XR 150 MG PO (08:35)
[2025-06-13] MEDS: FEOSOL 325 MG PO ×2 (08:35→21:12)
[2025-06-13] MEDS: EFFEXOR XR 75 MG PO (08:35)
[2025-06-13] MEDS: LAC HYDRIN, AM LACTIN LOTION 1 APPLIC TOPICAL ×2 (08:37→21:13)
--- NOTE | 2025-06-13 12:52 | W.PN.HOSP.TC ---
Today's Communication/Plan
-
IV Daptomycin
Assessment / Plan
Assessment / Plan
A/P: Patient is a 75y F with PMH significant for hypertension, depression and chronic L knee PJI who presents to ED complaining of chronic skin changes, pain and swelling of the LLE.
LLE Skin Changes +/- Cellulitis
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
h/o MRSA
- Admit for further evaluation and treatment.
- History of chronic infection with recent evaluations as an outpatient by Ortho and Derm.
- appreciate ID, continue IV Daptomycin
- Wound Care evaluation for topical / local therapies.
- PT evaluation for deconditioning / gait issues since initial TKA in 2022.
Iron Deficiency Anemia
- Stable. Hgb is at / near known baseline.
- Continue PO iron supplementation.
- Check iron studies.
Benign Hypertension
- Stable. Continue lisinopril.
Depression
- Stable. Continue venlafaxine.
RLS
Peripheral Neuropathy
- Resume 100mg TID and titrate as needed - patient agreeable to take
- Continue Mirapex.
DVT Prophylaxis: Lovenox
Code Status: Full
Anticipated Discharge: 24 - 48 hours
Subjective/Interval History
-
Date of Service: June 13, 2025
feeling okay, slightly improved
Objective Data
-
Vital Signs:
Vital Signs
Temp Pulse Resp BP Pulse Ox
97.4 F 92 16 140/66 98
06/13/25 07:45 06/13/25 07:45 06/13/25 07:45 06/13/25 07:45 06/13/25 07:45
I&O
06/12/25 06/13/25 06/14/25
06:59 06:59 05:59
Intake Total 440 / 440 0 / 0
Balance 440 / 440 0 / 0
Review of Systems
-
History Source: Patient
All other systems: Reviewed and negative
Physical Exam
-
General: No Apparent Distress
Respiratory: Clear to Auscultation; Negative Wheezes
Cardiac: Regular Rhythm and S1/S2
GI: Soft and Nontender
Musculoskeletal: Other (LLE erythematous, warm and swollen )
Skin: Warm and Dry; Negative Rash
Neuro: AO x 3
Psych: Calm
Data Reviewed
-
Diagnostic Radiology: Report Reviewed by me
Labs: Labs Reviewed by me
[2025-06-13 15:10] VITALS: BP 120/58
--- NOTE | 2025-06-13 15:32 | W.PN.ID1 ---
Date of Service
Date of Service: June 13, 2025
Today's Communication
Continue current antibiotics and lower extremity compressive modalities.
Assessment / Plan
# LLE cellulitis
. Outside cx MRSA R to tetracycline, clinda, T/sulfa, FQ
# Lymphema, venous stasis
# Abx allergies: PCN, T/sulfa
- Moisturize LE with Lachydrin bid
- LINDSAY-Wrap compression
- Replace Vancomycin with Daptomycin due to obesity and easier dosing. Check CK in am.
Of note, unable to use po linezolid due to interaction with venlafaxine
# Pruritc rash/lesion on RLE, BUE
- suspect contact dermatitis
early venous stasis dermatitis of RLE also possible
- Benadryl prn
#(L) TKR (05/2023; [facility]; subsequent periprosthetic fracture s/p partial revision, sumeet placement (08/2023)
# hx L distal knee (MRSA) abscess s/p drainage 10/2023 at [place], on doxycycline suppressive therapy for probable left knee PJI
-hold suppressive doxycycline while on Daptomycin.
- Of note, 06/08 synovial fluid neg.
#Conditions present on admission:
HTN
Restless leg syndrome
Hx breast CA (s/p lumpectomy, XRT)
Anxiety/depression
DWAIN
L>R LE lymphedema - goes to lymphedema clinic
Class III obesity BMI of 46
(L) TKR (05/2023; [facility]; subsequent periprosthetic fracture s/p partial revision, sumeet placement (08/2023)
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
Right TKR (2012)
Gastric bypass
Melanoma excision of left calderon
NAN
Chief Complaint
-: Cellulitis
Subjective / Review of Systems
Review of Systems: No Fever and No Chills
Vital Signs / Physical Exam
Vital Signs
Vital Signs
Temp Pulse Resp BP Pulse Ox
97.4 F 92 16 140/66 98
06/13/25 07:45 06/13/25 07:45 06/13/25 07:45 06/13/25 07:45 06/13/25 07:45
Physical Exam
Constitutional: No Acute Distress, Comfortable, Non-toxic and Obese
Eyes: Sclera Anicteric
Cardiovascular: S1/S2; Negative S3/S4
Pulmonary: Non Labored
Gastrointestinal: Non Distended
Extremities: Edema and Erythema
Wound: None
Neurological: Awake and Alert
Psychological: Calm
Objective Data
Lab Data
Lab Results
06/12/25 06:09
06/12/25 06:09
ESR 71 mm/hour (0-20) H 06/11/25 23:12
Estimated Creat Clear 81 ml/min 06/12/25 06:09
Total Bilirubin Cancelled 06/11/25 16:42
AST Cancelled 06/11/25 16:42
ALT Cancelled 06/11/25 16:42
Alkaline Phosphatase Cancelled 06/11/25 16:42
C-Reactive Protein 36.10 mg/L (0.0-10.00) H 06/11/25 23:12
Most recent labs reviewed.
Micro Results:
06/11/25 23:12 Blood Culture - Preliminary
Blood/Venous No Growth in 24 hours- Final report to follow
06/11/25 23:53 Blood Culture - Preliminary
Blood/Venous No Growth in 24 hours- Final report to follow
[2025-06-13] MEDS: LOVENOX 40 MG SC (16:56)
[2025-06-13] MEDS: CUBICIN 10 MG IV (16:56)
[2025-06-13] MEDS: MIRAPEX, GENERIC 1.5 MG PO (21:12)
[2025-06-13] MEDS: BENADRYL 25 MG PO (21:15)
[2025-06-13 23:00] VITALS: BP 112/55
[2025-06-14 05:46] VITALS: BMI 44.2
[2025-06-14 07:10] VITALS: BP 140/68
[2025-06-14] MEDS: FEOSOL 325 MG PO ×2 (08:44→21:40)
[2025-06-14] MEDS: ZESTRIL 20 MG PO (08:44)
[2025-06-14] MEDS: EFFEXOR XR 75 MG PO (08:44)
[2025-06-14] MEDS: EFFEXOR XR 150 MG PO (08:44)
[2025-06-14] MEDS: NEURONTIN 100 MG PO ×3 (08:45→21:41)
[2025-06-14] MEDS: LAC HYDRIN, AM LACTIN LOTION 1 APPLIC TOPICAL ×2 (08:45→21:41)
[2025-06-14] MEDS: TYLENOL 650 MG PO (11:50)
[2025-06-14 12:36] LABS: Hematocrit 33.8 % (37.0-47.0); Hemoglobin 10.2 g/dL (12.0-16.0); Mean Corp Hgb Conc. 30.2 g/dL (33.0-37.0); Mean Corpuscular Volume 79.9 fL (81.0-99.0); Platelet Count 327 10^3/uL (130-400); Red Cell Dist. Width 17.6 % (11.5-14.5)
[2025-06-14 12:59] LABS: Blood Urea Nitrogen 14 mg/dl (7-17); Calcium 8.3 mg/dl (8.4-10.2); Carbon Dioxide 26 mmol/L (22-30); Chloride 103 mmol/L (98-107); Estimated Creatinine Clearance 79 ml/min; Glucose 92 mg/dl (70-99); Potassium 4.9 mmol/L (3.5-5.1); Sodium 136 mmol/L (135-145); eGFR > 60.00
--- NOTE | 2025-06-14 13:54 | W.PN.ID1 ---
Date of Service
Date of Service: June 14, 2025
Today's Communication
Continue daptomycin.
Assessment / Plan
# LLE cellulitis
- Outside cx's with MRSA (R) to tetracycline, clinda, T/sulfa, FQ
# Lymphema, venous stasis
# Abx allergies: PCN, T/sulfa
- Moisturize LE with Lachydrin bid
- Continue with LINDSAY-Wrap compression
- Continue daptomycin.
- unable to use po linezolid due to interaction with venlafaxine
# Pruritc rash/lesion on RLE, BUE
- suspect contact dermatitis
early venous stasis dermatitis of RLE also possible
- Benadryl prn
#(L) TKR (05/2023; [facility]; subsequent periprosthetic fracture s/p partial revision, sumeet placement (08/2023)
# hx L distal knee (MRSA) abscess s/p drainage 10/2023 at [place], on doxycycline suppressive therapy for probable left knee PJI
-hold suppressive doxycycline while on Daptomycin.
- Of note, 06/08 synovial fluid neg.
#Conditions present on admission:
HTN
Restless leg syndrome
Hx breast CA (s/p lumpectomy, XRT)
Anxiety/depression
DWAIN
L>R LE lymphedema - goes to lymphedema clinic
Class III obesity BMI of 46
(L) TKR (05/2023; [facility]; subsequent periprosthetic fracture s/p partial revision, sumeet placement (08/2023)
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
Right TKR (2012)
Gastric bypass
Melanoma excision of left calderon
NAN
Chief Complaint
-: Cellulitis
Subjective / Review of Systems
Review of Systems: No Fever and No Chills
Vital Signs / Physical Exam
Vital Signs
Vital Signs
Temp Pulse Resp BP Pulse Ox
97.8 F 92 16 157/71 97
06/14/25 07:10 06/14/25 08:44 06/14/25 07:10 06/14/25 08:44 06/14/25 07:10
Physical Exam
Constitutional: No Acute Distress, Comfortable, Non-toxic and Obese
Eyes: Sclera Anicteric
Pulmonary: Non Labored
Gastrointestinal: Non Distended
Extremities: Edema, Erythema and Other (No lower extremity drainage)
Neurological: Awake and Alert
Psychological: Calm
Objective Data
Lab Data
Lab Results
06/14/25 12:28
06/14/25 12:28
ESR 71 mm/hour (0-20) H 06/11/25 23:12
Estimated Creat Clear 79 ml/min 06/14/25 12:28
Total Bilirubin Cancelled 06/11/25 16:42
AST Cancelled 06/11/25 16:42
ALT Cancelled 06/11/25 16:42
Alkaline Phosphatase Cancelled 06/11/25 16:42
C-Reactive Protein 36.10 mg/L (0.0-10.00) H 06/11/25 23:12
Most recent labs reviewed.
Micro Results:
06/11/25 23:53 Blood Culture - Preliminary
Blood/Venous No Growth in 48 hours- Final report to follow
06/11/25 23:12 Blood Culture - Preliminary
Blood/Venous No Growth in 48 hours- Final report to follow
[2025-06-14] MEDS: CUBICIN 10 MG IV (15:20)
[2025-06-14 15:30] VITALS: BP 136/71
--- NOTE | 2025-06-14 16:14 | CM ---
Reviewed chart. Met with pt bedside. IMM given in ED.
Continues on IV ABX and wound care
Pt inquired if she qualified for skilled care. PT rec outpatient therapy. Pt made aware.
States she needs help for short periods throughout the day but can't get private pay agency help because they require a 4 hr minimum. Suggested she could try checking with a local restoration for assistance.
Plan: Home with o/p therapy
[2025-06-14] MEDS: LOVENOX 40 MG SC (17:04)
[2025-06-14] MEDS: BENADRYL 25 MG PO (21:41)
[2025-06-14] MEDS: MIRAPEX, GENERIC 1.5 MG PO (21:41)
[2025-06-14 23:55] VITALS: BP 146/74
[2025-06-15 06:00] VITALS: BMI 43.7
[2025-06-15 07:00] VITALS: BP 140/60
[2025-06-15] MEDS: ZESTRIL 20 MG PO (08:18)
[2025-06-15] MEDS: EFFEXOR XR 150 MG PO (08:18)
[2025-06-15] MEDS: NEURONTIN 100 MG PO (08:18)
[2025-06-15] MEDS: FEOSOL 325 MG PO (08:18)
[2025-06-15] MEDS: LAC HYDRIN, AM LACTIN LOTION 1 APPLIC TOPICAL (08:19)
[2025-06-15] MEDS: EFFEXOR XR 75 MG PO (08:19)
--- NOTE | 2025-06-15 09:09 | W.PN.HOSP.TC ---
Today's Communication/Plan
-
Discharge planning
Assessment / Plan
Assessment / Plan
Physical exam:
General: Well Developed, Well Nourished and No Apparent Distress
HEENT: Normocephalic, Atraumatic and Moist Mucous Membranes
Respiratory: Clear to Auscultation; Negative Wheezes, Rales or Rhonchi
Cardiac: Regular Rhythm and S1/S2
GI: Soft, Nontender and Nondistended
Musculoskeletal: Legs are wrapped up today. Cellulitis improved. No Clubbing, No Cyanosis and review of system: See HPI
Neuro: Awake, Alert and Oriented, no neurological deficits
Psych: Calm
A/P: Patient is a 75y F with PMH significant for hypertension, depression and chronic L knee PJI who presents to ED complaining of chronic skin changes, pain and swelling of the LLE.
LLE Skin Changes +/- Cellulitis
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
h/o MRSA
- Admit for further evaluation and treatment.
- History of chronic infection with recent evaluations as an outpatient by Ortho and Derm.
- appreciate ID, continue IV Daptomycin . Today is last dose of IV daptomycin per ID. She can be discharged afterwards
- Wound Care evaluation for topical / local therapies.
- PT evaluation for deconditioning / gait issues since initial TKA in 2022. PT recommends outpatient PT
Iron Deficiency Anemia
- Stable. Hgb is at / near known baseline.
- Continue PO iron supplementation.
- Check iron studies.
Benign Hypertension
- Stable. Continue lisinopril.
Depression
- Stable. Continue venlafaxine.
RLS
Peripheral Neuropathy
- Resume 100mg TID and titrate as needed - patient agreeable to take
- Continue Mirapex.
DVT Prophylaxis: Lovenox
Code Status: Full
Anticipated Discharge: Today
Subjective/Interval History
-
Date of Service: June 15, 2025
Patient feels well today. Afebrile
Objective Data
-
Vital Signs:
Vital Signs
Temp Pulse Resp BP Pulse Ox
98.3 F 88 16 140/60 96
06/15/25 07:00 06/15/25 08:18 06/15/25 07:00 06/15/25 08:18 06/15/25 07:00
I&O
06/14/25 06/15/25 06/16/25
05:59 06:59 06:59
Intake Total 480 / 480 240 / 240
Balance 480 / 480 240 / 240
--- NOTE | 2025-06-15 10:09 | W.PN.ID1 ---
Date of Service
Date of Service: June 15, 2025
Today's Communication
- Can dc home after daptomycin dose today.
- Resume suppressive doxycycline tomorrow.
Assessment / Plan
# LLE cellulitis
.Improving
. Outside cx's with MRSA (R) to tetracycline, clinda, T/sulfa, FQ
# Lymphema, venous stasis
# Abx allergies: PCN, T/sulfa
- Moisturize LE with Lachydrin bid
- Continue with LINDSAY-Wrap compression
- No po abx option. Unable to use po linezolid due to interaction with venlafaxine
- Continue daptomycin day 5.
- Can dc home after daptomycin dose today.
# Pruritc rash/lesion on RLE, BUE
- suspect contact dermatitis
early venous stasis dermatitis of RLE also possible
- Benadryl prn
#(L) TKR (05/2023; [facility]; subsequent periprosthetic fracture s/p partial revision, sumeet placement (08/2023)
# hx L distal knee (MRSA) abscess s/p drainage 10/2023 at [place], on doxycycline suppressive therapy for probable left knee PJI
- 05/20 XRAY R knee: increased lucency
- Of note, 06/08 synovial fluid neg.
- Resume suppressive doxycycline tomorrow.
#Conditions present on admission:
HTN
Restless leg syndrome
Hx breast CA (s/p lumpectomy, XRT)
Anxiety/depression
DWAIN
L>R LE lymphedema - goes to lymphedema clinic
Class III obesity BMI of 46
(L) TKR (05/2023; [facility]; subsequent periprosthetic fracture s/p partial revision, sumeet placement (08/2023)
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
Right TKR (2012)
Gastric bypass
Melanoma excision of left calderon
NAN
Chief Complaint
-: Cellulitis
Subjective / Review of Systems
Reports left leg redness and swelling improved.
c/o still with dry skin.
c/o LINDSAY-Wrap too tight overnight.
Vital Signs / Physical Exam
Vital Signs
Vital Signs
Temp Pulse Resp BP Pulse Ox
98.3 F 88 16 140/60 96
06/15/25 07:00 06/15/25 08:18 06/15/25 07:00 06/15/25 08:18 06/15/25 07:00
Physical Exam
Constitutional: No Acute Distress, Comfortable and Obese
Cardiovascular: Regular Rate and S1/S2
Pulmonary: Clear
Gastrointestinal: Soft, Non Tender and Non Distended
Extremities: Edema (LLE edema decreased), Erythema (LLE erythema decreased) and Venous Insufficiency (BLE)
Skin: Dry (Extremely dry LLE with peeling skin nel. ankle; RLE dryness improved. BUE rash stable)
Neurological: AO x 3
Objective Data
Lab Data
Lab Results
06/14/25 12:28
06/14/25 12:28
ESR 71 mm/hour (0-20) H 06/11/25 23:12
Estimated Creat Clear 79 ml/min 06/14/25 12:28
Total Bilirubin Cancelled 06/11/25 16:42
AST Cancelled 06/11/25 16:42
ALT Cancelled 06/11/25 16:42
Alkaline Phosphatase Cancelled 06/11/25 16:42
C-Reactive Protein 36.10 mg/L (0.0-10.00) H 06/11/25 23:12
Most recent labs reviewed.
Micro Results:
06/11/25 23:53 Blood Culture - Preliminary
Blood/Venous No Growth in 72 hours- Final report to follow
06/11/25 23:12 Blood Culture - Preliminary
Blood/Venous No Growth in 72 hours- Final report to follow
--- NOTE | 2025-06-15 11:29 | WOUNDNOTE ---
[facility] RN note: Patient already seen by Marcelina Steel on 06/12/25. Duplicate consult. Discussed with RN Anna who stated patient's Le improved with less redness and swelling, and no drainage. Anna applied Kerlix under [place] wraps for protection
today. Please call if needed.
--- NOTE | 2025-06-15 13:30 | CM ---
Addendum entered by Agnieszka Fan 06/15/25 13:37:
IMM given and placed on chart
Original Note:
Pt is discharged to home. PT recommends O/P therapy. Pt is interested. Requested script from DR. Moreno.
[2025-06-15] MEDS: CUBICIN 10 MG IV (13:37)
--- NOTE | 2025-06-15 13:57 | W.DCSUMMARY ---
Discharge Summary
Discharge Data
Date of Admission: 06/11/25
Date of Discharge: 06/15/25
Total time spent discharging patient (in min): 32
-
Pending Results: No
Hospital Course
Patient 75-year-old female with history of hypertension, restless leg syndrome, breast cancer, depression anxiety, DWAIN, lymphedema, obesity, periprosthetic fracture with large suprapatellar joint effusion status post left TKA partial revision of
left placement and MRSA abscess left distal knee status post drainage in 2023 on suppressive doxycycline for probable PJI, presented to the hospital for recurrent cellulitis. Patient was treated with broad-spectrum antibiotics without significant
improvement. ID was consulted. ID replace IV vancomycin with IV daptomycin. Patient tolerated antibiotics well. She completed her course of IV antibiotics while inpatient. ID recommended to switch back to her oral doxycycline that she is taking
prior to admission. ID cleared her for discharge today. Otherwise patient has remained hemodynamically stable and afebrile. She will be discharged in stable condition today.
Discharge duration: 32 minutes
Discharge Plan
-
Patient Disposition: Home (Routine Discharge)
Discharge Diagnosis/Procedures: Left lower extremity cellulitis. History of periprosthetic fracture with partial revision and left distal knee abscess for methicillin-resistant Staphylococcus aureus. History of breast cancer. History of
lymphedema. History of gastric bypass.
Diet: Low Cholesterol
Activity: As tolerated
Blood Work: Please PCP to order CBC, BMP within 1 week
Activity Restrictions/Additional Instructions:
Wound Care Instructions Bilateral LE- Apply Aquaphor to LE daily. Apply Compression daily.
Referrals:
Lopez Carrera MD [Family Provider, Family Practice] - in less than 1 week
Prescriptions:
New
(DME) outpatient physical therapy
See Rx Instructions .Route .MEDSUPPLY Qty: 1 0RF
Rx Instructions:
R26.2 - Difficulty in walking, not elsewhere classified
Three times a week
Continued
venlafaxine [Effexor XR] 75 MG capsule,extended release 24hr
75 mg PO DAILY
Rx Instructions:
take with 150 mg for a total of 225 mg.
venlafaxine [Effexor XR] 150 mg Capsule,Extended Release 24hr
150 mg PO DAILY
Rx Instructions:
take with 75 mg for a total of 225 mg.
aspirin 81 mg Tablet,Delayed Release (Dr/Ec)
81 mg PO DAILY
lisinopril 20 mg Tablet
20 mg PO DAILY
pramipexole 1.5 mg Tablet
1.5 mg PO HS
Held
doxycycline hyclate 100 mg capsule
100 mg PO DAILY
Hold Instructions: Resume on 06/16/25.
Discharge Orders:
Discharge Patient (As Directed); Ordered 06/15/25
Ordered By: Quinton Moreno
Discharge Date and Time
Discharge Date/Time: 06/15/25 15:33
Print Language: FRENCH
[2025-06-15 14:15] VITALS: BP 147/74
== END 2025-06-15 15:33 | disposition home or self-care (01) | DRG 603 ==
LOC: 4 EAST ACU 20:42
PROVIDERS: Nurse Practitioner; Student in an Organized Health Care Education/Training Program; ADMITTING PHYSICIAN Hospitalist; ATTENDING PHYSICIAN Hospitalist; EMERGENCY PHYSICIAN Emergency Medicine; FAMILY PHYSICIAN Family Medicine; OTHER PHYSICIAN Internal Medicine Infectious Disease
DX: L03.116 Cellulitis of left lower limb (principal); Z68.42 Body mass index [BMI] 45.0-49.9, adult; T84.54XA Infection and inflammatory reaction due to internal left knee prosthesis, initial encounter; D50.9 Iron deficiency anemia, unspecified; I10 Essential (primary) hypertension; F32.A Depression, unspecified; G25.81 Restless legs syndrome; G62.9 Polyneuropathy, unspecified; E66.813 Obesity, class 3; Z98.84 Bariatric surgery status; Y83.1 Surgical operation with implant of artificial internal device as the cause of abnormal reaction of the patient, or of later complication, without mention of misadventure at the time of the procedure; Z79.899 Other long term (current) drug therapy
CPT/HCPCS: 80048; 82550; 83540; 83550; 85025; 85027; 85652; 86140; 87040; 96365; 96366; 99285; J0878